=== PATIENT | female | born 1975 | race Caucasian/White ===

== ENCOUNTER 2019-05-16 14:30 | Outpatient (RCR) | payer OTHER, SELFPAY ==
--- NOTE | 2019-03-21 12:51 | PT.OIE ---
Current Diagnoses Pain in right hip (03/21/19) Pain in right knee (03/21/19) Visit Care Team Role Provider Type Kerri De Los Santos MD Primary Care Provider Non-Staff Specialty: Family Practice Address: [address] [place] [address], [id number] Email: Michelle Turner Attending Provider Non-Staff Specialty: Medical Address: [address] [place] [address], [address], [place], [phone] Fax: Email: Physical Therapy Initial Evaluation PT-OP-A Visit Information Start: 03/21/19 09:02 Freq: Status: Active Protocol: Document 03/21/19 09:03 MB (Rec: 03/21/19 09:24 MB [id number]) Out-Patient Physical Therapy Visit Information Visit Information Visit Type Initial Evaluation Visit Start Time 09:03 Visit Stop Time 09:43 Total Visit Minutes 40 Visit Number 06/18 Number of THREAD ROLLER Visits 0 PT-OP-B Current Condition Start: 03/21/19 09:02 Freq: Status: Active Protocol: Document 03/21/19 09:03 MB (Rec: 03/21/19 09:24 MB [id number]) Current Condition History of Current Condition Onset Date 09/24/18 History of Current Condition Wednesday before 09/24/18, pt tweeked left ankle, had many sxs before on it. She had to assist her mother after surgery, had increased stress. She had a fall on her right knee when her shoe slipped at [employer]. 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 Pt, mother and all work at [employer]. Mother lives with pt and pt . October 25, she went to [facility] doctor and got right knee MRI. L&I case pending. She was put on 4 hours of work. She saw orthopedist who recommended 4 weeks of PT. She had increased pain, returned to Dr. Patel ([facility] PCP) and was referred to Dr. Lira who is doing surgery on 04/27/19. Pt has been using cane in left hand, too low. When tried to adjust, no button to hold place. Ed pt to consider getting another cane. She has had swelling in her right knee when standing at work. Pt is driving with right foot. Prior Treatments and Tests X-ray showed some degenerative changes, patellofemoral changes MRI right knee 01/04/19: partial tear ACL, full- thickness chondral defect, mild to mod partial-thickness central and medial retropatellar chondromalacia and mild patellofemoral OA PT-OP-C Subjective Start: 03/21/19 09:02 Freq: Status: Active Protocol: Document 03/21/19 09:03 MB (Rec: 03/21/19 09:51 MB [id number]) OP-PT Subjective Patient Comments Patient Comments Pt states that she really wants US. She is in a lot of pain with her right knee, 12-14. She is not specific about what makes pain better or worse. PT-OP-G Mobility & Gait Start: 03/21/19 09:02 Freq: Status: Active Protocol: Document 03/21/19 09:03 MB (Rec: 03/21/19 12:44 MB [id number]) OP Gait Assessment Gait Gait Assistance Required: Independent Comments Gait Comments Pt uses SPC in left hand, it is too short and she presents with increased Trendelenburg gait. PT raises walker 1 and her gait is much improved. PT-OP-J Posture/Palpation/Skin Start: 03/21/19 09:02 Freq: Status: Active Protocol: Document 03/21/19 09:03 MB (Rec: 03/21/19 12:48 MB [id number]) Skin Assessment Edema Assessment R LE Comments R knee and distal LE edema, ed pt in use of compression, ice and elevation and gave size H tubagrip PT-OP-K Range of Motion Start: 03/21/19 09:02 Freq: Status: Active Protocol: Document 03/21/19 09:03 MB (Rec: 03/21/19 12:44 MB [id number]) Knee Goniometric Range of Motion Knee ROM Limitations Comments L knee functional; pt self- limits AROM right knee in supine with ROM 5-30 deg Ankle and Foot Goniometric Range of Motion Ankle and Foot ROM Limitations Comments Left ankle ROM limited in eversion after history of surgeries. Pt self-limits DF lacking 15 deg on the right d/ t right knee pain. She does not tolerate PF, eversion, inversion ROM on the right. Minimal toe wiggle PT-OP-M Strength Start: 03/21/19 09:02 Freq: Status: Active Protocol: Document 03/21/19 09:03 MB (Rec: 03/21/19 12:44 MB [id number]) Hip Strength Hip Manual Muscle Testing Right Comments Pt does not tolerate MMT RLE d /t right knee pain Left Flexion (L2) 5 Normal Abduction 2+ Poor+ Comments Supine Knee Strength Knee Manual Muscle Testing Right Comments Pt does not tolerate Left Flexion (S2) 4 Good Extension (L3) 5 Normal Comments Supine Ankle/Foot Strength Ankle and Foot Manual Muscle Testing Right Comments Pt does not tolerate MMT d/t right knee pain Left Dorsiflexion (L4) 5 Normal Plantarflexion (S1) 5 Normal Inversion 5 Normal Eversion (S1) 4 Good Comments Supine PT-OP-Q Treatments Start: 03/21/19 09:02 Freq: Status: Active Protocol: Document 03/21/19 09:03 MB (Rec: 03/21/19 12:12 MB [id number]) Manual Therapy Treatment Taping R knee support Type of Tape Kinesio Tape Comments KT c strip below patella and B I strips to support medial and lateral knee PT-OP-T Assessment and Plan Start: 03/21/19 09:02 Freq: Status: Active Protocol: Document 03/21/19 09:03 MB (Rec: 03/21/19 12:27 MB [id number]) Physical Therapy Assessment Rehab Potential Rehabilitation Potential Fair Evaluation Complexity Number of Personal Factors/Comorbidities 1-2 Number of Body Systems Impaired 1-2 Clinical Presentation at Evaluation Unstable Impairments Impairments Activity Tolerance,Balance, Edema,Functional Mobility,Gait ,Integument,Pain,Posture,ROM, Sensation,Soft Tissue Mobility ,Strength Other Impairments Pt has mechanical changes in right knee and to have surgery , PT pre-op will be limited. Other Concerns Barriers to Rehabilitation Pt has fear of pain, self- limits mobility and would like US, she might limit PT interventions pre-op. Goals 3 Impairment LE functional index score reflects 76% impairment Clinical Trial Head Goal (LTG) Pt will present with LE functional index score reflecting no more than 65% impairment by 05/06/19. LTG Duration 6 weeks 2 Impairment Weakness Intermediate Goal (LTG) Pt will perform gentle pre-op exercises to improve range, fascial and lymphatic mobility by 05/06/19. LTG Duration 6 weeks 1 Impairment Pain and edema right knee Clinical Trial Head Goal (LTG) Pt will report a 10% improvement in right knee pain and edema by 05/06/19. LTG Duration 6 weeks Assessment Summary Assessment Pt is a 43 y/o female presenting with right knee pain, edema, decreased strength, range and poor gait s/p knee injury several months ago. She states she is scheduled for arthroscopic surgery with Dr. Lira in April. She would like to try pre-op PT for US. PT will encourage pre-op education for knee care, range of motion, positioning and safe gait as well. Will monitor pt's receptiveness and response to PT. Physical Therapy Plan Frequency and Duration Frequency of Treatment 2x/Week Duration of Treatment 4 weeks Plan of Care Start Date 03/21/19 Plan of Care End Date 05/06/19 Therapeutic Interventions Therapeutic Interventions Aquatic Therapy,Balance Training,Gait Training,Home Exercise Program,Joint Mobilizations,Manual Therapy, Neuromuscular Re-education, Patient/Caregiver Education, Self-Care/Home Management, Sensory Integration,Soft Tissue Mobilization,Taping, Therapeutic Activities, Therapeutic Exercises Modalities Cold Pack/Ice Massage,Electric Stimulation,Hot Packs, Infrared Therapy,Ultrasound Next Visit Focus/Plan Next Note Type Treatment Note Next Visit Plan Initiate US, possible gentle supine pre-op exercises.
--- NOTE | 2019-03-23 09:47 | PT.OTN ---
Current Diagnoses Pain in right hip (03/23/19) Pain in right knee (03/23/19) Physical Therapy Treatment Note PT-OP-A Visit Information Start: 03/21/19 09:02 Freq: Status: Active Protocol: Document 03/23/19 09:05 MB (Rec: 03/23/19 09:47 MB [id number]) Out-Patient Physical Therapy Visit Information Visit Information Visit Type Treatment Note Visit Start Time 09:05 Visit Stop Time 09:45 Total Visit Minutes 40 Visit Number 07/19 Number of ARTIFICIAL FLOWERS SUPERVISOR Visits 0 PT-OP-B Current Condition Start: 03/21/19 09:02 Freq: Status: Active Protocol: Document 03/21/19 09:03 MB (Rec: 03/21/19 09:24 MB [id number]) Current Condition History of Current Condition Onset Date 09/24/18 History of Current Condition Wednesday before 09/24/18, pt tweeked left ankle, had many sxs before on it. She had to assist her mother after surgery, had increased stress. She had a fall on her right knee when her shoe slipped at [employer]. 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 Pt, mother and all work at [employer]. Mother lives with pt and pt . October 25, she went to [facility] and got right knee MRI. L&I case pending. She was put on 4 hours of work. She saw orthopedist who recommended 4 weeks of PT. She had increased pain, returned to Dr. Patel ([facility] PCP) and was referred to Dr. Lira who is doing surgery on 04/27/19. Pt has been using cane in left hand, too low. When tried to adjust, no button to hold place. Ed pt to consider getting another cane. She has had swelling in her right knee when standing at work. Pt is driving with right foot. Prior Treatments and Tests X-ray showed some degenerative changes, patellofemoral changes MRI right knee 01/04/19: partial tear ACL, full- thickness chondral defect, mild to mod partial-thickness central and medial retropatellar chondromalacia and mild patellofemoral OA PT-OP-C Subjective Start: 03/21/19 09:02 Freq: Status: Active Protocol: Document 03/23/19 09:05 MB (Rec: 03/23/19 09:47 MB [id number]) OP-PT Subjective Patient Comments Patient Comments Pt states that the taping of her right knee was terrible. It pulled on her knee. She took it off after the eval. Today, pt states that she has one kidney. She has to drink a lot. She has history of hysterectomy and gastric bypass. The detox bath was helpful. Patient Reported Progress Same PT-OP-G Mobility & Gait Start: 03/21/19 09:02 Freq: Status: Active Protocol: Document 03/21/19 09:03 MB (Rec: 03/21/19 12:44 MB [id number]) OP Gait Assessment Gait Gait Assistance Required: Independent Comments Gait Comments Pt uses SPC in left hand, it is too short and she presents with increased Trendelenburg gait. PT raises walker 1 and her gait is much improved. PT-OP-J Posture/Palpation/Skin Start: 03/21/19 09:02 Freq: Status: Active Protocol: Document 03/21/19 09:03 MB (Rec: 03/21/19 12:48 MB [id number]) Skin Assessment Edema Assessment R LE Comments R knee and distal LE edema, ed pt in use of compression, ice and elevation and gave size H tubagrip PT-OP-K Range of Motion Start: 03/21/19 09:02 Freq: Status: Active Protocol: Document 03/21/19 09:03 MB (Rec: 03/21/19 12:44 MB [id number]) Knee Goniometric Range of Motion Knee ROM Limitations Comments L knee functional; pt self- limits AROM right knee in supine with ROM 5-30 deg Ankle and Foot Goniometric Range of Motion Ankle and Foot ROM Limitations Comments Left ankle ROM limited in eversion after history of surgeries. Pt self-limits DF lacking 15 deg on the right d/ t right knee pain. She does not tolerate PF, eversion, inversion ROM on the right. Minimal toe wiggle PT-OP-M Strength Start: 03/21/19 09:02 Freq: Status: Active Protocol: Document 03/21/19 09:03 MB (Rec: 03/21/19 12:44 MB [id number]) Hip Strength Hip Manual Muscle Testing Right Comments Pt does not tolerate MMT RLE d /t right knee pain Left Flexion (L2) 5 Normal Abduction 2+ Poor+ Comments Supine Knee Strength Knee Manual Muscle Testing Right Comments Pt does not tolerate Left Flexion (S2) 4 Good Extension (L3) 5 Normal Comments Supine Ankle/Foot Strength Ankle and Foot Manual Muscle Testing Right Comments Pt does not tolerate MMT d/t right knee pain Left Dorsiflexion (L4) 5 Normal Plantarflexion (S1) 5 Normal Inversion 5 Normal Eversion (S1) 4 Good Comments Supine PT-OP-Q Treatments Start: 03/21/19 09:02 Freq: Status: Active Protocol: Document 03/23/19 09:05 MB (Rec: 03/23/19 09:47 MB [id number]) Therapeutic Exercises Supine Exercises APs Comments APs supine and sitting GS Comments GS holding several seconds, supine and sitting Manual Therapy Treatment Other Other Manual Treatments Pt agrees to Counterstrain to assess and treat fascial tension: treated stacks spinal veins thoracic, PLAN3 chain RLE PT-OP-T Assessment and Plan Start: 03/21/19 09:02 Freq: Status: Active Protocol: Document 03/23/19 09:05 MB (Rec: 03/23/19 09:47 MB [id number]) Physical Therapy Assessment Rehab Potential Rehabilitation Potential Fair Evaluation Complexity Number of Personal Factors/Comorbidities 1-2 Number of Body Systems Impaired 1-2 Clinical Presentation at Evaluation Unstable Impairments Impairments Activity Tolerance,Balance, Edema,Functional Mobility,Gait ,Integument,Pain,Posture,ROM, Sensation,Soft Tissue Mobility ,Strength Other Impairments Pt has mechanical changes in right knee and to have surgery , PT pre-op will be limited. Other Concerns Barriers to Rehabilitation Pt has fear of pain, self- limits mobility and would like US, she might limit PT interventions pre-op. Goals 3 Impairment LE functional index score reflects 76% impairment Hospital Medicine Director Goal (LTG) Pt will present with LE functional index score reflecting no more than 65% impairment by 05/06/19. LTG Duration 6 weeks 2 Impairment Weakness Hospital Medicine Director Goal (LTG) Pt will perform gentle pre-op exercises to improve range, fascial and lymphatic mobility by 05/06/19. LTG Duration 6 weeks 1 Impairment Pain and edema right knee Hospital Medicine Director Goal (LTG) Pt will report a 10% improvement in right knee pain and edema by 05/06/19. LTG Duration 6 weeks Assessment Summary Assessment Initiated Counterstrain and isometrics today. Consider US in future treatments.
--- NOTE | 2019-03-27 11:50 | PT.OTN ---
Current Diagnoses Pain in right hip (03/27/19) Pain in right knee (03/27/19) Physical Therapy Treatment Note PT-OP-A Visit Information Start: 03/21/19 09:02 Freq: Status: Active Protocol: Document 03/27/19 11:49 SP (Rec: 03/27/19 11:49 SP [id number]) Out-Patient Physical Therapy Visit Information Visit Information Visit Type Treatment Note Visit Start Time 09:05 Visit Stop Time 09:45 Total Visit Minutes 40 Visit Number 3/12 Number of COMPUTER HARDWARE ENGINEER Visits 1 PT-OP-B Current Condition Start: 03/21/19 09:02 Freq: Status: Active Protocol: Document 03/21/19 09:03 MB (Rec: 03/21/19 09:24 MB [id number]) Current Condition History of Current Condition Onset Date 09/24/18 History of Current Condition Wednesday before 09/24/18, pt tweeked left ankle, had many sxs before on it. She had to assist her mother after surgery, had increased stress. She had a fall on her right knee when her shoe slipped at [employer]. 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 Pt, mother and all work at [employer]. Mother lives with pt and pt . October 25, she went to [facility] doctor and got right knee MRI. L&I case pending. She was put on 4 hours of work. She saw orthopedist who recommended 4 weeks of PT. She had increased pain, returned to Dr. Patel ([facility] PCP) and was referred to Dr. Lira who is doing surgery on 04/27/19. Pt has been using cane in left hand, too low. When tried to adjust, no button to hold place. Ed pt to consider getting another cane. She has had swelling in her right knee when standing at work. Pt is driving with right foot. Prior Treatments and Tests X-ray showed some degenerative changes, patellofemoral changes MRI right knee 01/04/19: partial tear ACL, full- thickness chondral defect, mild to mod partial-thickness central and medial retropatellar chondromalacia and mild patellofemoral OA PT-OP-C Subjective Start: 03/21/19 09:02 Freq: Status: Active Protocol: Document 03/27/19 09:45 SP (Rec: 03/27/19 11:49 SP [id number]) OP-PT Subjective Patient Comments Patient Comments Pt stated was in alot of discomfort R knee after last visit, slept for 2 hours. Pre PT R knee pain 12/14 superior and medial R knee, would like to trial US today, helped for her ankles in the past and hoping could today as well. Has been doing her exercises this past weekend due to pain. Has been using her SPC more lately to help support ambulation. PT-OP-G Mobility & Gait Start: 03/21/19 09:02 Freq: Status: Active Protocol: Document 03/21/19 09:03 MB (Rec: 03/21/19 12:44 MB [id number]) OP Gait Assessment Gait Gait Assistance Required: Independent Comments Gait Comments Pt uses SPC in left hand, it is too short and she presents with increased Trendelenburg gait. PT raises walker 1 and her gait is much improved. PT-OP-J Posture/Palpation/Skin Start: 03/21/19 09:02 Freq: Status: Active Protocol: Document 03/21/19 09:03 MB (Rec: 03/21/19 12:48 MB [id number]) Skin Assessment Edema Assessment R LE Comments R knee and distal LE edema, ed pt in use of compression, ice and elevation and gave size H tubagrip PT-OP-K Range of Motion Start: 03/21/19 09:02 Freq: Status: Active Protocol: Document 03/21/19 09:03 MB (Rec: 03/21/19 12:44 MB [id number]) Knee Goniometric Range of Motion Knee ROM Limitations Comments L knee functional; pt self- limits AROM right knee in supine with ROM 5-30 deg Ankle and Foot Goniometric Range of Motion Ankle and Foot ROM Limitations Comments Left ankle ROM limited in eversion after history of surgeries. Pt self-limits DF lacking 15 deg on the right d/ t right knee pain. She does not tolerate PF, eversion, inversion ROM on the right. Minimal toe wiggle PT-OP-M Strength Start: 03/21/19 09:02 Freq: Status: Active Protocol: Document 03/21/19 09:03 MB (Rec: 03/21/19 12:44 MB [id number]) Hip Strength Hip Manual Muscle Testing Right Comments Pt does not tolerate MMT RLE d /t right knee pain Left Flexion (L2) 5 Normal Abduction 2+ Poor+ Comments Supine Knee Strength Knee Manual Muscle Testing Right Comments Pt does not tolerate Left Flexion (S2) 4 Good Extension (L3) 5 Normal Comments Supine Ankle/Foot Strength Ankle and Foot Manual Muscle Testing Right Comments Pt does not tolerate MMT d/t right knee pain Left Dorsiflexion (L4) 5 Normal Plantarflexion (S1) 5 Normal Inversion 5 Normal Eversion (S1) 4 Good Comments Supine PT-OP-Q Treatments Start: 03/21/19 09:02 Freq: Status: Active Protocol: Document 03/27/19 09:45 SP (Rec: 03/27/19 11:49 SP [id number]) Therapeutic Exercises Supine Exercises heel slides Side right Resistance AROM Reps/Minutes 5 reps, 3 reps Comments to tolerable range, demonstrated approx 80-90* ankle pumps Side right Reps/Minutes 3x10 GS Supine Exercise Name Glut, quad sets 10 sec hold x10 Side right Sitting Exercises heel/ toe raises Reps/Minutes 3x10 PT-OP-R Modalities Start: 03/21/19 09:02 Freq: Status: Active Protocol: Document 03/27/19 09:45 SP (Rec: 03/27/19 11:49 SP [id number]) Ultrasound Therapy Treatment R knee Treatment Duration (minutes) 8 Patient Position Supine Coupling Medium Ultrasound Gel Frequency Setting (mHz) 1 Mode Setting Continuous Duty Cycle 50% Intensity Setting (w/cm2) 1.6 PT-OP-T Assessment and Plan Start: 03/21/19 09:02 Freq: Status: Active Protocol: Document 03/27/19 09:45 SP (Rec: 03/27/19 11:49 SP [email or web address]) Physical Therapy Assessment Assessment Summary Assessment Pt tolerated tx well, no adverse affects. Good response of decreased knee pain to 5/ 10 post US and no increase during review of HEP and added heel slides and seated HRTR today. Pt education on importance of HEP outside of tx if tolerated to progress in ROM and strength. Physical Therapy Plan Frequency and Duration Frequency of Treatment 2x/Week Duration of Treatment 4 weeks Plan of Care Start Date 03/21/19 Plan of Care End Date 05/06/19 Therapeutic Interventions Therapeutic Interventions Aquatic Therapy,Balance Training,Gait Training,Home Exercise Program,Joint Mobilizations,Manual Therapy, Neuromuscular Re-education, Patient/Caregiver Education, Self-Care/Home Management, Sensory Integration,Soft Tissue Mobilization,Taping, Therapeutic Activities, Therapeutic Exercises Modalities Cold Pack/Ice Massage,Electric Stimulation,Hot Packs, Infrared Therapy,Ultrasound Next Visit Focus/Plan Next Note Type Treatment Note Next Visit Plan possible gentle supine pre-op exercises.
--- NOTE | 2019-03-29 09:09 | PT-OP ANOTE ---
Pt cancelled appt just prior to appt time, her leg gave out causing her to fall as was getting out of bed this morning.
--- NOTE | 2019-04-04 10:36 | PT.OTN ---
Current Diagnoses Pain in right hip (04/04/19) Pain in right knee (04/04/19) Physical Therapy Treatment Note PT-OP-A Visit Information Start: 03/21/19 09:02 Freq: Status: Active Protocol: Document 04/04/19 09:51 SP (Rec: 04/04/19 11:59 SP [email or web address]) Out-Patient Physical Therapy Visit Information Visit Information Visit Type Treatment Note Visit Start Time 09:51 Visit Stop Time 10:36 Total Visit Minutes 45 Visit Number 09/16 Number of ASPHALT TILE FLOOR LAYER Visits 2 PT-OP-B Current Condition Start: 03/21/19 09:02 Freq: Status: Active Protocol: Document 03/21/19 09:03 MB (Rec: 03/21/19 09:24 MB [id number]) Current Condition History of Current Condition Onset Date 09/24/18 History of Current Condition Wednesday before 09/24/18, pt tweeked left ankle, had many sxs before on it. She had to assist her mother after surgery, had increased stress. She had a fall on her right knee when her shoe slipped at [employer]. 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 Pt, mother and all work at [employer]. Mother lives with pt and pt . October 25, she went to [facility] doctor and got right knee MRI. L&I case pending. She was put on 4 hours of work. She saw orthopedist who recommended 4 weeks of PT. She had increased pain, returned to Dr. Patel ([facility] PCP) and was referred to Dr. Lira who is doing surgery on 04/27/19. Pt has been using cane in left hand, too low. When tried to adjust, no button to hold place. Ed pt to consider getting another cane. She has had swelling in her right knee when standing at work. Pt is driving with right foot. Prior Treatments and Tests X-ray showed some degenerative changes, patellofemoral changes MRI right knee 01/04/19: partial tear ACL, full- thickness chondral defect, mild to mod partial-thickness central and medial retropatellar chondromalacia and mild patellofemoral OA PT-OP-C Subjective Start: 03/21/19 09:02 Freq: Status: Active Protocol: Document 04/04/19 10:36 SP (Rec: 04/04/19 12:02 SP [email or web address]) OP-PT Subjective Patient Comments Patient Comments Pt stated couldn't make it to her last appt, R knee/ LE was numb when getting out of bed and when went to WB, she fell out of bed. This had been the 2nd time her knee/leg has been numb and unable to stand on. Has been resting it since. Her R knee pain is 6-7/10 pre PT. Has been trying to perform exercises as tolerated. Patient Reported Progress Same PT-OP-G Mobility & Gait Start: 03/21/19 09:02 Freq: Status: Active Protocol: Document 03/21/19 09:03 MB (Rec: 03/21/19 12:44 MB [id number]) OP Gait Assessment Gait Gait Assistance Required: Independent Comments Gait Comments Pt uses SPC in left hand, it is too short and she presents with increased Trendelenburg gait. PT raises walker 1 and her gait is much improved. PT-OP-J Posture/Palpation/Skin Start: 03/21/19 09:02 Freq: Status: Active Protocol: Document 03/21/19 09:03 MB (Rec: 03/21/19 12:48 MB [id number]) Skin Assessment Edema Assessment R LE Comments R knee and distal LE edema, ed pt in use of compression, ice and elevation and gave size H tubagrip PT-OP-K Range of Motion Start: 03/21/19 09:02 Freq: Status: Active Protocol: Document 03/21/19 09:03 MB (Rec: 03/21/19 12:44 MB [id number]) Knee Goniometric Range of Motion Knee ROM Limitations Comments L knee functional; pt self- limits AROM right knee in supine with ROM 5-30 deg Ankle and Foot Goniometric Range of Motion Ankle and Foot ROM Limitations Comments Left ankle ROM limited in eversion after history of surgeries. Pt self-limits DF lacking 15 deg on the right d/ t right knee pain. She does not tolerate PF, eversion, inversion ROM on the right. Minimal toe wiggle PT-OP-M Strength Start: 03/21/19 09:02 Freq: Status: Active Protocol: Document 03/21/19 09:03 MB (Rec: 03/21/19 12:44 MB [id number]) Hip Strength Hip Manual Muscle Testing Right Comments Pt does not tolerate MMT RLE d /t right knee pain Left Flexion (L2) 5 Normal Abduction 2+ Poor+ Comments Supine Knee Strength Knee Manual Muscle Testing Right Comments Pt does not tolerate Left Flexion (S2) 4 Good Extension (L3) 5 Normal Comments Supine Ankle/Foot Strength Ankle and Foot Manual Muscle Testing Right Comments Pt does not tolerate MMT d/t right knee pain Left Dorsiflexion (L4) 5 Normal Plantarflexion (S1) 5 Normal Inversion 5 Normal Eversion (S1) 4 Good Comments Supine PT-OP-Q Treatments Start: 03/21/19 09:02 Freq: Status: Active Protocol: Document 04/04/19 09:51 SP (Rec: 04/04/19 11:59 SP [email or web address]) Therapeutic Exercises Supine Exercises straight leg raise Side right Reps/Minutes 3x5 Comments quad contraction but not letting into R knee hyperextension. hip abd Supine Exercise Name ABD/ADD Side right Resistance AROM Reps/Minutes 3x5 Comments slow heel slides Side right Resistance AROM Reps/Minutes 3x5 reps Comments to tolerable range, demonstrated approx 80-90* ankle pumps Side right Reps/Minutes 3x10 GS Supine Exercise Name Glut, quad sets 10 sec hold x10 Side right PT-OP-R Modalities Start: 03/21/19 09:02 Freq: Status: Active Protocol: Document 04/04/19 09:51 SP (Rec: 04/04/19 11:59 SP [email or web address]) Ultrasound Therapy Treatment R knee Treatment Duration (minutes) 8 Patient Position Supine Coupling Medium Ultrasound Gel Frequency Setting (mHz) 1 Mode Setting Continuous Duty Cycle 50% Intensity Setting (w/cm2) 1.6 Comments inferior/lateral patella of R knee PT-OP-T Assessment and Plan Start: 03/21/19 09:02 Freq: Status: Active Protocol: Document 04/04/19 09:51 SP (Rec: 04/04/19 11:59 SP [email or web address]) Physical Therapy Assessment Assessment Summary Assessment Pt tolerated supine exercises with no adverse reactions to added SLR, hip abd to assist for movement in/out bed but did not tolerate bridging so discontinue for now, cued for slow controlled movement and not allowing R knee to hyperextend. Trialed SLS on R which caused increased pain WB with support so stopped. Will continue with post op HEP and good response to US end of tx 4-5/10 R knee pain. Physical Therapy Plan Frequency and Duration Frequency of Treatment 2x/Week Duration of Treatment 4 weeks Plan of Care Start Date 03/21/19 Plan of Care End Date 05/06/19 Therapeutic Interventions Therapeutic Interventions Aquatic Therapy,Balance Training,Gait Training,Home Exercise Program,Joint Mobilizations,Manual Therapy, Neuromuscular Re-education, Patient/Caregiver Education, Self-Care/Home Management, Sensory Integration,Soft Tissue Mobilization,Taping, Therapeutic Activities, Therapeutic Exercises Modalities Cold Pack/Ice Massage,Electric Stimulation,Hot Packs, Infrared Therapy,Ultrasound Next Visit Focus/Plan Next Note Type Treatment Note Next Visit Plan possible gentle supine pre-op exercises. assess stair mgt, 2 -3 stairs enter front door with no rails prep post op.
--- NOTE | 2019-04-10 09:46 | PT.OTN ---
Current Diagnoses Pain in right hip (04/10/19) Pain in right knee (04/10/19) Physical Therapy Treatment Note PT-OP-A Visit Information Start: 03/21/19 09:02 Freq: Status: Active Protocol: Document 04/10/19 09:01 SP (Rec: 04/10/19 09:50 SP [id number]) Out-Patient Physical Therapy Visit Information Visit Information Visit Type Treatment Note Visit Start Time 09:01 Visit Stop Time 09:46 Total Visit Minutes 45 Visit Number 5/12 Number of HEAV[employer] EQUIPMENT SERVICE MANAGER Visits 3 PT-OP-B Current Condition Start: 03/21/19 09:02 Freq: Status: Active Protocol: Document 03/21/19 09:03 MB (Rec: 03/21/19 09:24 MB [id number]) Current Condition History of Current Condition Onset Date 09/24/18 History of Current Condition Wednesday before 09/24/18, pt tweeked left ankle, had many sxs before on it. She had to assist her mother after surgery, had increased stress. She had a fall on her right knee when her shoe slipped at [employer]. 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 Pt, mother and all work at [employer]. Mother lives with pt and pt . October 25, she went to [facility] doctor and got right knee MRI. L&I case pending. She was put on 4 hours of work. She saw orthopedist who recommended 4 weeks of PT. She had increased pain, returned to Dr. Patel ([facility] PCP) and was referred to Dr. Lira who is doing surgery on 04/27/19. Pt has been using cane in left hand, too low. When tried to adjust, no button to hold place. Ed pt to consider getting another cane. She has had swelling in her right knee when standing at work. Pt is driving with right foot. Prior Treatments and Tests X-ray showed some degenerative changes, patellofemoral changes MRI right knee 01/04/19: partial tear ACL, full- thickness chondral defect, mild to mod partial-thickness central and medial retropatellar chondromalacia and mild patellofemoral OA PT-OP-C Subjective Start: 03/21/19 09:02 Freq: Status: Active Protocol: Document 04/10/19 09:01 SP (Rec: 04/10/19 09:50 SP [id number]) OP-PT Subjective Patient Comments Patient Comments Pt stated 6-12/14 R knee pain pre PT, was able to walk without cane last fri short distances, R knee has been popping alot more lately. Pt stated has been taking flexerol to help sleep at night for her back. Pt stated has her surgery scheduled and wants to be sure her FWW and crutch height is appropriate before then, has shower chair as well. Pt stated she might get a ramp installed to assist with getting in the house so doesn' t have to worry about the stairs, unsure yet. She will take a pic before next tx for a visual of what home stair set up is to practice in PT. Patient Reported Progress Same PT-OP-G Mobility & Gait Start: 03/21/19 09:02 Freq: Status: Active Protocol: Document 03/21/19 09:03 MB (Rec: 03/21/19 12:44 MB [id number]) OP Gait Assessment Gait Gait Assistance Required: Independent Comments Gait Comments Pt uses SPC in left hand, it is too short and she presents with increased Trendelenburg gait. PT raises walker 1 and her gait is much improved. PT-OP-J Posture/Palpation/Skin Start: 03/21/19 09:02 Freq: Status: Active Protocol: Document 03/21/19 09:03 MB (Rec: 03/21/19 12:48 MB [id number]) Skin Assessment Edema Assessment R LE Comments R knee and distal LE edema, ed pt in use of compression, ice and elevation and gave size H tubagrip PT-OP-K Range of Motion Start: 03/21/19 09:02 Freq: Status: Active Protocol: Document 03/21/19 09:03 MB (Rec: 03/21/19 12:44 MB [id number]) Knee Goniometric Range of Motion Knee ROM Limitations Comments L knee functional; pt self- limits AROM right knee in supine with ROM 5-30 deg Ankle and Foot Goniometric Range of Motion Ankle and Foot ROM Limitations Comments Left ankle ROM limited in eversion after history of surgeries. Pt self-limits DF lacking 15 deg on the right d/ t right knee pain. She does not tolerate PF, eversion, inversion ROM on the right. Minimal toe wiggle PT-OP-M Strength Start: 03/21/19 09:02 Freq: Status: Active Protocol: Document 03/21/19 09:03 MB (Rec: 03/21/19 12:44 MB [id number]) Hip Strength Hip Manual Muscle Testing Right Comments Pt does not tolerate MMT RLE d /t right knee pain Left Flexion (L2) 5 Normal Abduction 2+ Poor+ Comments Supine Knee Strength Knee Manual Muscle Testing Right Comments Pt does not tolerate Left Flexion (S2) 4 Good Extension (L3) 5 Normal Comments Supine Ankle/Foot Strength Ankle and Foot Manual Muscle Testing Right Comments Pt does not tolerate MMT d/t right knee pain Left Dorsiflexion (L4) 5 Normal Plantarflexion (S1) 5 Normal Inversion 5 Normal Eversion (S1) 4 Good Comments Supine PT-OP-Q Treatments Start: 03/21/19 09:02 Freq: Status: Active Protocol: Document 04/10/19 09:01 SP (Rec: 04/10/19 09:50 SP [id number]) Therapeutic Exercises Supine Exercises straight leg raise Side right Reps/Minutes 3x8 Comments quad contraction but not letting into R knee hyperextension. hip abd Side right Resistance AROM Reps/Minutes 3x8 Comments slow heel slides Side right Resistance AROM Reps/Minutes 3x8 reps Comments to tolerable range, demonstrated approx 80-90* GS Supine Exercise Name Glut, quad sets 10 sec hold x10 Side right Reps/Minutes 10 x10 each Standing Exercises Heel raises Side bilateral Resistance AROM Reps/Minutes 2x5 Comments slow controlled hip abd Side right Resistance AROM Reps/Minutes 2x5 Comments contact with table PT-OP-R Modalities Start: 03/21/19 09:02 Freq: Status: Active Protocol: Document 04/10/19 09:01 SP (Rec: 04/10/19 09:50 SP [id number]) Ultrasound Therapy Treatment R knee Treatment Duration (minutes) 8 Patient Position Supine Coupling Medium Ultrasound Gel Frequency Setting (mHz) 1 Mode Setting Continuous Duty Cycle 50% Intensity Setting (w/cm2) 1.6 Comments inferior/lateral patella of R knee PT-OP-T Assessment and Plan Start: 03/21/19 09:02 Freq: Status: Active Protocol: Document 04/10/19 09:01 SP (Rec: 04/10/19 09:50 SP [id number]) Physical Therapy Assessment Assessment Summary Assessment Tx focused on HEP review and tolerated increased reps of 8 and added standing RLE AROM exercises with contact support at counter with no report of increased pain. Pt requested continued use of US for assistance with pain control with reported positive affects of reduction in pain 5/10 by end of tx. Educated patient to continue HEP on her own, did not want copies of standing ex today. Physical Therapy Plan Frequency and Duration Frequency of Treatment 2x/Week Duration of Treatment 4 weeks Plan of Care Start Date 03/21/19 Plan of Care End Date 05/06/19 Therapeutic Interventions Therapeutic Interventions Aquatic Therapy,Balance Training,Gait Training,Home Exercise Program,Joint Mobilizations,Manual Therapy, Neuromuscular Re-education, Patient/Caregiver Education, Self-Care/Home Management, Sensory Integration,Soft Tissue Mobilization,Taping, Therapeutic Activities, Therapeutic Exercises Modalities Cold Pack/Ice Massage,Electric Stimulation,Hot Packs, Infrared Therapy,Ultrasound Next Visit Focus/Plan Next Note Type Treatment Note Next Visit Plan Reviewed pre OP HEP with increased reps to 8 today, added standing hip abd/HRTR with good tolerance review next tx, Next tx assess FWW and crutch height then assess stair mgt to prep for post op (surgery is scheduled 04/28/19 ), 2-3 stairs enter front door with no rails prep post op.
--- NOTE | 2019-04-12 09:40 | PT.OTN ---
Current Diagnoses Pain in right hip (04/12/19) Pain in right knee (04/12/19) Physical Therapy Treatment Note PT-OP-A Visit Information Start: 03/21/19 09:02 Freq: Status: Active Protocol: Document 04/12/19 09:40 SP (Rec: 04/12/19 12:35 SP [email or web address]) Out-Patient Physical Therapy Visit Information Visit Information Visit Type Treatment Note Visit Start Time 09:03 Visit Stop Time 09:40 Total Visit Minutes 37 Visit Number 6 Number of METAL GRINDER Visits 4 PT-OP-B Current Condition Start: 03/21/19 09:02 Freq: Status: Active Protocol: Document 03/21/19 09:03 MB (Rec: 03/21/19 09:24 MB [id number]) Current Condition History of Current Condition Onset Date 09/24/18 History of Current Condition Wednesday before 09/24/18, pt tweeked left ankle, had many sxs before on it. She had to assist her mother after surgery, had increased stress. She had a fall on her right knee when her shoe slipped at [employer]. 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 Pt, mother and all work at [employer]. Mother lives with pt and pt . October 25, she went to [facility] doctor and got right knee MRI. L&I case pending. She was put on 4 hours of work. She saw orthopedist who recommended 4 weeks of PT. She had increased pain, returned to Dr. Patel ([facility] PCP) and was referred to Dr. Lira who is doing surgery on 04/27/19. Pt has been using cane in left hand, too low. When tried to adjust, no button to hold place. Ed pt to consider getting another cane. She has had swelling in her right knee when standing at work. Pt is driving with right foot. Prior Treatments and Tests X-ray showed some degenerative changes, patellofemoral changes MRI right knee 01/04/19: partial tear ACL, full- thickness chondral defect, mild to mod partial-thickness central and medial retropatellar chondromalacia and mild patellofemoral OA PT-OP-C Subjective Start: 03/21/19 09:02 Freq: Status: Active Protocol: Document 04/12/19 09:40 SP (Rec: 04/12/19 12:35 SP [email or web address]) OP-PT Subjective Patient Comments Patient Comments Pt stated is in alot of inferior and lateral R patella knee pain today 03/16, doesn' t want to do much today. Want to check the proper height of her crutches and standard walker for use post-op safety use and try US to assist decrease R knee pain only. PT-OP-G Mobility & Gait Start: 03/21/19 09:02 Freq: Status: Active Protocol: Document 03/21/19 09:03 MB (Rec: 03/21/19 12:44 MB [id number]) OP Gait Assessment Gait Gait Assistance Required: Independent Comments Gait Comments Pt uses SPC in left hand, it is too short and she presents with increased Trendelenburg gait. PT raises walker 1 and her gait is much improved. PT-OP-J Posture/Palpation/Skin Start: 03/21/19 09:02 Freq: Status: Active Protocol: Document 03/21/19 09:03 MB (Rec: 03/21/19 12:48 MB [id number]) Skin Assessment Edema Assessment R LE Comments R knee and distal LE edema, ed pt in use of compression, ice and elevation and gave size H tubagrip PT-OP-K Range of Motion Start: 03/21/19 09:02 Freq: Status: Active Protocol: Document 04/12/19 09:40 SP (Rec: 04/12/19 12:35 SP [email or web address]) Knee Goniometric Range of Motion Knee R knee Knee ROM WFL No Patient Position Supine Flexion Active (degrees) 102 Flexion Passive (degrees) 112 Extension Active (degrees) 0 PT-OP-M Strength Start: 03/21/19 09:02 Freq: Status: Active Protocol: Document 03/21/19 09:03 MB (Rec: 03/21/19 12:44 MB [id number]) Hip Strength Hip Manual Muscle Testing Right Comments Pt does not tolerate MMT RLE d /t right knee pain Left Flexion (L2) 5 Normal Abduction 2+ Poor+ Comments Supine Knee Strength Knee Manual Muscle Testing Right Comments Pt does not tolerate Left Flexion (S2) 4 Good Extension (L3) 5 Normal Comments Supine Ankle/Foot Strength Ankle and Foot Manual Muscle Testing Right Comments Pt does not tolerate MMT d/t right knee pain Left Dorsiflexion (L4) 5 Normal Plantarflexion (S1) 5 Normal Inversion 5 Normal Eversion (S1) 4 Good Comments Supine PT-OP-Q Treatments Start: 03/21/19 09:02 Freq: Status: Active Protocol: Document 04/12/19 09:40 SP (Rec: 04/12/19 12:35 SP [email or web address]) Therapeutic Exercises Supine Exercises straight leg raise Side right Reps/Minutes 2x5 Comments quad contraction but not letting into R knee hyperextension. hip abd Side right Resistance AROM Reps/Minutes 3x5 Comments slow Gait Training Gait Activity standard walker, crutch use Description forward using both, NWB RLE Device Used B crutches, standard walker Level of Assistance I Surface level Distance/Duration 10 ft x2 each device Treatment Focus Prepare device use demonstrating NWB post surgery . Comments Adjusted personal standard walker and crutches for appropriate height fit to prepare for post op use ( surgery end of Nov). Recommended can add wheels to front of walker for increased mobility, cued current for 4 point contact transition before WB UE. Pt believes will be NWB post surgery and wanted to trial demo today, assess 2 stairs with no HR in future appt to assimulate entering home but might install ramp, unsure at this time. PT-OP-R Modalities Start: 03/21/19 09:02 Freq: Status: Active Protocol: Document 04/12/19 09:40 SP (Rec: 04/12/19 12:35 SP [email or web address]) Ultrasound Therapy Treatment R knee Treatment Duration (minutes) 10 Patient Position Supine Coupling Medium Ultrasound Gel Frequency Setting (mHz) 1 Mode Setting Continuous Duty Cycle 50% Intensity Setting (w/cm2) 1.6 Comments inferior/lateral patella of R knee PT-OP-T Assessment and Plan Start: 03/21/19 09:02 Freq: Status: Active Protocol: Document 04/12/19 09:40 SP (Rec: 04/12/19 12:35 SP [email or web address]) Physical Therapy Assessment Goals 3 Impairment LE functional index score reflects 76% impairment Shelter Goal (LTG) Pt will present with LE functional index score reflecting no more than 65% impairment by 05/06/19. LTG Duration 6 weeks 2 Impairment Weakness Loss Control Representative Goal (LTG) Pt will perform gentle pre-op exercises to improve range, fascial and lymphatic mobility by 05/06/19. LTG Duration 6 weeks 1 Impairment Pain and edema right knee Shelter Goal (LTG) Pt will report a 10% improvement in right knee pain and edema by 05/06/19. LTG Duration 6 weeks Assessment Summary Assessment Tx focused on pain control, only tolerated knee extension exercises today. Pt looked and felt more confident using standard walker AD during trail NWB of RLE prep surgery. Suggested could add front wheels if felt comfortable for foward glide mobility vs. lifting walker while maintaining RLE elevated. Little unsteady using crutches , cued for narrower CHELO and shorter LLE hops 2 point gait for safety with balance forward locomotion. Pt has 2 stairs to enter home with no HRs and will have to be able to complete upon discharge post surgery. Pt stated my install ramp, unsure at this time. Pt responded well to tx today decrease in pain 5/10 R knee pain post US, no increase in pain during knee extension ex's. Pt made gains in AROM measurements. Physical Therapy Plan Frequency and Duration Frequency of Treatment 2x/Week Duration of Treatment 4 weeks Plan of Care Start Date 03/21/19 Plan of Care End Date 05/06/19 Therapeutic Interventions Therapeutic Interventions Aquatic Therapy,Balance Training,Gait Training,Home Exercise Program,Joint Mobilizations,Manual Therapy, Neuromuscular Re-education, Patient/Caregiver Education, Self-Care/Home Management, Sensory Integration,Soft Tissue Mobilization,Taping, Therapeutic Activities, Therapeutic Exercises Modalities Cold Pack/Ice Massage,Electric Stimulation,Hot Packs, Infrared Therapy,Ultrasound Next Visit Focus/Plan Next Note Type Treatment Note Next Visit Plan Review post op and added AROM standing exercises, progress if tolerated. Assess stair mgt with no HR to assimulate home before surgery, pt unsure if installing ramp.
--- NOTE | 2019-04-21 10:34 | PT.OTN ---
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 She had to assist her mother after surgery, had increased stress. She had a fall on her right knee when her shoe slipped at [employer]. 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 Pt, mother and all work at [employer]. Mother lives with pt and pt . October 25, she went to [facility] doctor and got right knee MRI. L&I case pending. She was put on 4 hours of work. She saw orthopedist who recommended 4 weeks of PT. She had increased pain, returned to Dr. Patel ([facility] PCP) and was referred to Dr. Lira who is doing surgery on 04/27/19. Pt has been using cane in left hand, too low. When tried to adjust, no button to hold place. Ed pt to consider getting another cane. She has had swelling in her right knee when standing at work. Pt is driving with right foot. Prior Treatments and Tests X-ray showed some degenerative changes, patellofemoral changes MRI right knee 01/04/19: partial tear ACL, full- thickness chondral defect, mild to mod partial-thickness central and medial retropatellar chondromalacia and mild patellofemoral OA PT-OP-C Subjective Start: 03/21/19 09:02 Freq: Status: Active Protocol: Document 04/21/19 09:46 MB (Rec: 04/21/19 10:24 MB [id number]) OP-PT Subjective Patient Comments Patient Comments Pt's daughter has bronchitis and pt wears face mask. She has right knee surgery next week. PT-OP-G Mobility & Gait Start: 03/21/19 09:02 Freq: Status: Active Protocol: Document 03/21/19 09:03 MB (Rec: 03/21/19 12:44 MB [id number]) OP Gait Assessment Gait Gait Assistance Required: Independent Comments Gait Comments Pt uses SPC in left hand, it is too short and she presents with increased Trendelenburg gait. PT raises walker 1 and her gait is much improved. PT-OP-J Posture/Palpation/Skin Start: 03/21/19 09:02 Freq: Status: Active Protocol: Document 03/21/19 09:03 MB (Rec: 03/21/19 12:48 MB [id number]) Skin Assessment Edema Assessment R LE Comments R knee and distal LE edema, ed pt in use of compression, ice and elevation and gave size H tubagrip PT-OP-K Range of Motion Start: 03/21/19 09:02 Freq: Status: Active Protocol: Document 04/12/19 09:40 SP (Rec: 04/12/19 12:35 SP [id number]) Knee Goniometric Range of Motion Knee R knee Knee ROM WFL No Patient Position Supine Flexion Active (degrees) 102 Flexion Passive (degrees) 112 Extension Active (degrees) 0 PT-OP-M Strength Start: 03/21/19 09:02 Freq: Status: Active Protocol: Document 03/21/19 09:03 MB (Rec: 03/21/19 12:44 MB [id number]) Hip Strength Hip Manual Muscle Testing Right Comments Pt does not tolerate MMT RLE d /t right knee pain Left Flexion (L2) 5 Normal Abduction 2+ Poor+ Comments Supine Knee Strength Knee Manual Muscle Testing Right Comments Pt does not tolerate Left Flexion (S2) 4 Good Extension (L3) 5 Normal Comments Supine Ankle/Foot Strength Ankle and Foot Manual Muscle Testing Right Comments Pt does not tolerate MMT d/t right knee pain Left Dorsiflexion (L4) 5 Normal Plantarflexion (S1) 5 Normal Inversion 5 Normal Eversion (S1) 4 Good Comments Supine PT-OP-Q Treatments Start: 03/21/19 09:02 Freq: Status: Active Protocol: Document 04/21/19 09:46 MB (Rec: 04/21/19 10:33 MB [id number]) Manual Therapy Treatment Manual Techniques STM right gastroc head Comments STM proximal right gastroc Self-Care/Home Management Treatment Education Other Education RICE, APs, use of rolling walker for gait post-op, plan for post-op PT PT-OP-R Modalities Start: 03/21/19 09:02 Freq: Status: Active Protocol: Document 04/21/19 09:46 MB (Rec: 04/21/19 09:56 MB [id number]) Ultrasound Therapy Treatment R knee Treatment Duration (minutes) 10 Patient Position Supine Coupling Medium Ultrasound Gel Frequency Setting (mHz) 1 Mode Setting Continuous Duty Cycle 50% Intensity Setting (w/cm2) 1.6 Comments inferior/lateral patella of R knee PT-OP-T Assessment and Plan Start: 03/21/19 09:02 Freq: Status: Active Protocol: Document 04/21/19 09:46 MB (Rec: 04/21/19 10:24 MB [id number]) Physical Therapy Assessment Goals 3 Impairment LE functional index score reflects 76% impairment Teacher Goal (LTG) Pt will present with LE functional index score reflecting no more than 65% impairment by 05/06/19. LTG Duration 6 weeks 2 Impairment Weakness Teacher Goal (LTG) Pt will perform gentle pre-op exercises to improve range, fascial and lymphatic mobility by 05/06/19. LTG Duration 6 weeks 1 Impairment Pain and edema right knee Shelter Goal (LTG) Pt will report a 10% improvement in right knee pain and edema by 05/06/19. LTG Duration 6 weeks Assessment Summary Assessment Pt's last appointment before surgery, con't PT 2x/wk post- op when MD clears pt. Physical Therapy Plan Therapeutic Interventions Therapeutic Interventions Aquatic Therapy,Balance Training,Gait Training,Home Exercise Program,Joint Mobilizations,Manual Therapy, Neuromuscular Re-education, Patient/Caregiver Education, Self-Care/Home Management, Sensory Integration,Soft Tissue Mobilization,Taping, Therapeutic Activities, Therapeutic Exercises Modalities Cold Pack/Ice Massage,Electric Stimulation,Hot Packs, Infrared Therapy,Ultrasound Hold Physical Therapy Reason For Hold Pt to have surgery next week, hold until post-op. Next Visit Focus/Plan Next Note Type Re-Evaluation
--- NOTE | 2019-05-16 16:16 | PT.OTRE ---
Current Diagnoses Pain in right hip (05/16/19) Pain in right knee (05/16/19) Visit Care Team Role Provider Type Kerri De Los Santos MD Primary Care Provider Non-Staff Specialty: Family Practice Address: [address] [place] [address], [id number] Email: Michelle Turner Attending Provider Non-Staff Specialty: Medical Address: [address] [place] [address], [address], [place], [phone] Fax: Email: Physical Therapy Re-Evaluation PT-OP-A Visit Information Start: 03/21/19 09:02 Freq: Status: Active Protocol: Document 05/16/19 14:31 MB (Rec: 05/16/19 15:29 MB [id number]) Out-Patient Physical Therapy Visit Information Visit Information Visit Type Re-Evaluation Visit Note Post-op Visit Start Time 14:31 Visit Stop Time 15:11 Total Visit Minutes 40 Visit Number 01/16 PT-OP-B Current Condition Start: 03/21/19 09:02 Freq: Status: Active Protocol: Document 05/16/19 14:31 MB (Rec: 05/16/19 16:16 MB [id number]) Current Condition History of Current Condition Onset Date 04/28/19 History of Current Condition Pt post-op right knee arthroscopy 04/28/19 PT-OP-C Subjective Start: 03/21/19 09:02 Freq: Status: Active Protocol: Document 05/16/19 14:31 MB (Rec: 05/16/19 16:16 MB [id number]) OP-PT Subjective Patient Comments Patient Comments Pt arrives post-op right knee arthroscopy 04/28/19. Per op note, pt was found to have ACL intact, chondromalacia and loose cartilage flaps on the medial condyle which were debrided, full-thickness cartilage loss at the superior pole of the patella and synovitis in the patellofemoral joint which was resected with the shaver. Pt with order for WBAT. On re-eval date today, pt reports concern that PA at post-op appointment on 05/11/19 told her that she needs a TKA . She reports she very concerned that the arthroscopic surgery did not fix her problem. She states she is returning to her PCP, Dr. De Los Santos, on 05/23/19 and she is going to talk with her about getting another opionion by orthopedic doctor [place] [employer] [place]. She also scheduled to see a chiropractor 05/18/19 . Pt states that her pain is no better after surgery and that it is 8-9/10 constant right knee pain. She states that elevating and ice are not helpful. She asks for ultrasound today. Pt explains that today is re-evaluation day post-op and that ultrasound can be performed during treatments but that since she is now post-op, PT will include strengthening, flexibility, gait and balance training. Pt does not report acceptance of this. She states that TENS has helped her in the past and she has a TENS that [facility] paid for. PT-OP-G Mobility & Gait Start: 03/21/19 09:02 Freq: Status: Active Protocol: Document 03/21/19 09:03 MB (Rec: 03/21/19 12:44 MB [id number]) OP Gait Assessment Gait Gait Assistance Required: Independent Comments Gait Comments Pt uses SPC in left hand, it is too short and she presents with increased Trendelenburg gait. PT raises walker 1 and her gait is much improved. PT-OP-J Posture/Palpation/Skin Start: 03/21/19 09:02 Freq: Status: Active Protocol: Document 03/21/19 09:03 MB (Rec: 03/21/19 12:48 MB [id number]) Skin Assessment Edema Assessment R LE Comments R knee and distal LE edema, ed pt in use of compression, ice and elevation and gave size H tubagrip PT-OP-K Range of Motion Start: 03/21/19 09:02 Freq: Status: Active Protocol: Document 05/16/19 14:31 MB (Rec: 05/16/19 16:16 MB [id number]) Knee Goniometric Range of Motion Knee Measured in Degrees R knee Knee ROM WFL No Patient Position Supine Flexion Active (degrees) 74 Extension Active (degrees) 0 PT-OP-M Strength Start: 03/21/19 09:02 Freq: Status: Active Protocol: Document 05/16/19 14:31 MB (Rec: 05/16/19 16:16 MB [id number]) Hip Strength Hip Manual Muscle Testing Right Reason Not Measured Pain Left Flexion (L2) 4 Good Abduction 3+ Fair+ Knee Strength Knee Manual Muscle Testing Right Reason Not Measured Pain Left Flexion (S2) 5 Normal Extension (L3) 5 Normal Ankle/Foot Strength Ankle and Foot Manual Muscle Testing Right Dorsiflexion (L4) 5 Normal Left Dorsiflexion (L4) 5 Normal Toe Strength Toe Manual Muscle Testing Left Great Toe Extension 4 Good Right Great Toe Extension 4 Good PT-OP-Q Treatments Start: 03/21/19 09:02 Freq: Status: Active Protocol: Document 04/21/19 09:46 MB (Rec: 04/21/19 10:33 MB [id number]) Manual Therapy Treatment Manual Techniques STM right gastroc head Comments STM proximal right gastroc Self-Care/Home Management Treatment Education Other Education RICE, APs, use of rolling walker for gait post-op, plan for post-op PT PT-OP-R Modalities Start: 03/21/19 09:02 Freq: Status: Active Protocol: Document 04/21/19 09:46 MB (Rec: 04/21/19 09:56 MB [id number]) Ultrasound Therapy Treatment R knee Treatment Duration (minutes) 10 Patient Position Supine Coupling Medium Ultrasound Gel Frequency Setting (mHz) 1 Mode Setting Continuous Duty Cycle 50% Intensity Setting (w/cm2) 1.6 Comments inferior/lateral patella of R knee PT-OP-T Assessment and Plan Start: 03/21/19 09:02 Freq: Status: Active Protocol: Document 05/16/19 14:31 MB (Rec: 05/16/19 16:16 MB [id number]) Physical Therapy Assessment Rehab Potential Rehabilitation Potential Fair Evaluation Complexity Number of Personal Factors/Comorbidities 1-2 Number of Body Systems Impaired 1-2 Impairments Other Impairments Pt's concerns about being told that she needs to have a TKA after her recent surgery--pt perseverates on this and is not receptive to PT education, PT encouraging her to call Dr Fiona Rollins's office to speak with him directly. Pt is also going to ask for another (this is third) orthopedic surgeon opinion. She is not very accepting of PT education that she will have to perform strengthening, other exercises with PT post-op. She con't to ask for US. Goals 7 Skilled Nursing Goal (LTG) Pt will perform 15 reps sit to stand without UE support in 30 sec to improve functional mobility by 07/17/19. LTG Duration 8 weeks 6 Endodontic Assistant Goal (LTG) Pt will present with improved B hip flexion and abduction and knee flexion and extension to 5/5 by 07/17/19. LTG Duration 8 weeks 5 Endodontic Assistant Goal (LTG) Pt will present with improved active right knee flexion to at least 120 deg by 07/17/19. LTG Duration 8 weeks 3 Impairment LE functional index score reflects 76% impairment Endodontic Assistant Goal (LTG) Pt will present with LE functional index score reflecting no more than 65% impairment by 07/17/19. LTG Duration 8 weeks 2 Impairment Weakness Endodontic Assistant Goal (LTG) Pt will I perform progressive HEP to improve flexibility, strength, balance and gait by 07/17/19. LTG Duration 8 weeks 1 Impairment R knee pain Endodontic Assistant Goal (LTG) Pt will report a 50% improvement in right knee 07/17. LTG Duration 8 weeks Assessment Summary Assessment Pt presents with decreased right knee ROM, strength and I gait post-op right knee arthroscopic surgery 04/28/19. She is gait training with minimal step-through gait with rolling walker this date. She states that her pain is no better post-op and rates pain as 8-9/10 in her right knee. See subjective comments. Pt presents upset and states that she was told that she needs a TKA on her post-op appointment on 05/11/19. She has talked with her vice president financial. She has also made an appointment with her PCP, Dr. De Los Santos, and is asking for another orthopedic opinion. PT encourages pt to call Dr. Rollins's office and speak with him about her concerns. PT calls Dr. Rollins's office and leaves message and asks to have doctor himself return PT' s call in order that PT might communicate pt reports and to clarify any PT recommendations . Pt has decreased receptiveness to PT education that she will have to perform strengthening, other exercises including ROM, gait and balance training now that she is post-op. She states that she does not feel listened to because her pain is not better . She requests US. PT will con 't to educate pt that she must progress towards PT goals in order to con't with PT. PT did set a pain goal and another self-report goal with the LEF. PT also set exercise, range, strength and sit to stand goal to reflect objective improvements. PT functional prognosis is fair to guarded. Participation may be a barrier to PT. Physical Therapy Plan Frequency and Duration Frequency of Treatment 2x/Week Duration of Treatment 8 weeks Plan of Care Start Date 05/16/19 Plan of Care End Date 07/17/19 Therapeutic Interventions Therapeutic Interventions Aquatic Therapy,Balance Training,Gait Training,Home Exercise Program,Joint Mobilizations,Manual Therapy, Neuromuscular Re-education, Patient/Caregiver Education, Self-Care/Home Management, Sensory Integration,Soft Tissue Mobilization,Taping, Therapeutic Activities, Therapeutic Exercises Modalities Cold Pack/Ice Massage,Electric Stimulation,Hot Packs, Infrared Therapy,Ultrasound Next Visit Focus/Plan Next Note Type Treatment Note Next Visit Plan Progress HEP as pt participates
--- NOTE | 2019-05-17 12:15 | PT-IP ANOTE ---
[address] Rollins's office returns PT's call and PT communicates concerns with her.
--- NOTE | 2019-05-18 09:48 | PT.OPDS ---
Current Diagnoses Pain in right hip (05/16/19) Pain in right knee (05/16/19) Visit Care Team Role Provider Type Kerri De Los Santos MD Primary Care Provider Non-Staff Specialty: Family Practice Address: [address] [place] [address], [id number] Email: Michelle Turner Attending Provider Non-Staff Specialty: Medical Address: [address] [place] [address], [address], [place], [phone] Fax: Email: Visit Number Visit Number 01/16 Discharge Summary PT-OP-B Current Condition Start: 03/21/19 09:02 Freq: Status: Active Protocol: Document 05/16/19 14:31 MB (Rec: 05/16/19 16:16 MB [id number]) Current Condition History of Current Condition Onset Date 04/28/19 History of Current Condition Pt post-op right knee arthroscopy 04/28/19 PT-OP-C Subjective Start: 03/21/19 09:02 Freq: Status: Active Protocol: Document 05/16/19 14:31 MB (Rec: 05/16/19 16:16 MB [id number]) OP-PT Subjective Patient Comments Patient Comments Pt arrives post-op right knee arthroscopy 04/28/19. Per op note, pt was found to have ACL intact, chondromalacia and loose cartilage flaps on the medial condyle which were debrided, full-thickness cartilage loss at the superior pole of the patella and synovitis in the patellofemoral joint which was resected with the shaver. Pt with order for WBAT. On re-eval date today, pt reports concern that PA at post-op appointment on 05/11/19 told her that she needs a TKA . She reports she very concerned that the arthroscopic surgery did not fix her problem. She states she is returning to her PCP, Dr. De Los Santos, on 05/23/19 and she is going to talk with her about getting another opionion by orthopedic doctor [place] the [employer]. She also scheduled to see a chiropractor 05/18/19 . Pt states that her pain is no better after surgery and that it is 8-9/10 constant right knee pain. She states that elevating and ice are not helpful. She asks for ultrasound today. Pt explains that today is re-evaluation day post-op and that ultrasound can be performed during treatments but that since she is now post-op, PT will include strengthening, flexibility, gait and balance training. Pt does not report acceptance of this. She states that TENS has helped her in the past and she has a TENS that [facility] paid for. PT-OP-G Mobility & Gait Start: 03/21/19 09:02 Freq: Status: Active Protocol: Document 03/21/19 09:03 MB (Rec: 03/21/19 12:44 MB [id number]) OP Gait Assessment Gait Gait Assistance Required: Independent Comments Gait Comments Pt uses SPC in left hand, it is too short and she presents with increased Trendelenburg gait. PT raises walker 1 and her gait is much improved. PT-OP-J Posture/Palpation/Skin Start: 03/21/19 09:02 Freq: Status: Active Protocol: Document 03/21/19 09:03 MB (Rec: 03/21/19 12:48 MB [id number]) Skin Assessment Edema Assessment R LE Comments R knee and distal LE edema, ed pt in use of compression, ice and elevation and gave size H tubagrip PT-OP-K Range of Motion Start: 03/21/19 09:02 Freq: Status: Active Protocol: Document 05/16/19 14:31 MB (Rec: 05/16/19 16:16 MB [id number]) Knee Goniometric Range of Motion Knee R knee Knee ROM WFL No Patient Position Supine Flexion Active (degrees) 74 Extension Active (degrees) 0 PT-OP-M Strength Start: 03/21/19 09:02 Freq: Status: Active Protocol: Document 05/16/19 14:31 MB (Rec: 05/16/19 16:16 MB [id number]) Hip Strength Hip Manual Muscle Testing Right Reason Not Measured Pain Left Flexion (L2) 4 Good Abduction 3+ Fair+ Knee Strength Knee Manual Muscle Testing Right Reason Not Measured Pain Left Flexion (S2) 5 Normal Extension (L3) 5 Normal Ankle/Foot Strength Ankle and Foot Manual Muscle Testing Right Dorsiflexion (L4) 5 Normal Left Dorsiflexion (L4) 5 Normal Toe Strength Toe Manual Muscle Testing Left Great Toe Extension 4 Good Right Great Toe Extension 4 Good PT-OP-T Assessment and Plan Start: 03/21/19 09:02 Freq: Status: Active Protocol: Document 05/18/19 09:43 MB (Rec: 05/18/19 09:47 MB [id number]) Physical Therapy Plan Discharge Physical Therapy Discharge Comments Pt needs to return to Dr. Rollins to get post-op order for PT with any PT restrictions and get pre-approval with before continuing with PT treatment. PT has communicated this with pt and pt reports understanding. She has a follow-up with Dr. Lira on 06/08/19. Will d/c PT at this time.
== END 2019-06-02 09:46 ==
LOC: PHYS 14:30
PROVIDERS: PCP Family Medicine; Visit Provider Nurse Practitioner Family
DX: M25.561 Pain in right knee (principal); M25.551 Pain in right hip
CPT/HCPCS: 97035; 97110; 97140; 97161; 97164; 97535

== ENCOUNTER → 2020-03-08 09:44 | Outpatient (CLI) | payer OTHER, SELFPAY ==
--- NOTE | 2020-03-08 | DI.MRI.S_ITS ---
PROCEDURE: MR KNEE RT WO/W CON INDICATIONS: Pain in right knee TECHNIQUE: Noncontrast sagittal PD fast spin echo and T2 fast spin echo with fat saturation, sagittal 3-D FLASH with fat saturation; coronal T1 spin echo and PD fast spin echo with fat saturation, and axial T1 spin echo and PD fast spin echo with fat saturation through the knee. Post-contrast axial, coronal, and sagittal T1 spin echo with fat saturation through the knee. COMPARISON: [facility], CR, XR KNEE 1 OR 2 VIEWS RIGHT, 02/12/2020, 20:20. FINDINGS: Image quality: Excellent. Menisci: Medial meniscus intact. Lateral meniscus intact. Cruciate ligaments: Anterior cruciate ligament appears intact. Posterior cruciate ligament appears intact. Medial structures: The medial collateral ligament appears intact. Semimembranosus tendon appears intact. Visualized portions of the pes anserinus tendons appear normal. No abnormal bursal fluid. Lateral structures: The lateral collateral ligament intact. Biceps femoris tendon appears intact. Popliteus tendon grossly unremarkable. Iliotibial band appears intact. Anterior structures: Quadriceps tendon intact. There is mild thickening and signal change, T2 hyperintense appearance of the medial patellofemoral ligament without complete rupture. There is mild patellar tendinopathy. Prepatellar and superficial infrapatellar subcutaneous edema/fluid. Bones and cartilage: No focal marrow contusion or discrete low signal fracture line. No suspicious enhancement. Within the medial compartment, mild intrasubstance signal changes however no focal cartilage defect. Within the lateral compartment, mild intrasubstance signal changes however no focal cartilage defect. Within the patellofemoral compartment, partial-thickness loss of the cartilage overlying the median patellar ridge and lateral facet. The femoral trochlear cartilage appears intact. Joint space: Small joint effusion. Burkett's cyst measuring approximately 6-7 cm in the cephalocaudal dimension. No specific evidence of intra-articular loose body. IMPRESSION: Small joint effusion. Sprain of the medial patellofemoral ligament, without definite complete rupture. Large Burkett's cyst Mild patellar tendinopathy with adjacent fluid and edema Mild joint degeneration , most pronounced in the patellofemoral compartment. Dictated by: Florentin Reece M.D. on 03/08/2020 at 10:51 Approved by: Florentin Reece M.D. on 03/08/2020 at 11:00
== END ==
PROVIDERS: PCP Family Medicine; Referring Provider Family Medicine; Visit Provider Family Medicine
DX: M25.561 Pain in right knee (principal); S76.111A Strain of right quadriceps muscle, fascia and tendon, initial encounter; M17.11 Unilateral primary osteoarthritis, right knee; M71.21 Synovial cyst of popliteal space [Baker], right knee; M25.461 Effusion, right knee
CPT/HCPCS: 73723

== ENCOUNTER 2020-09-26 09:45 | Outpatient (RCR) | payer OTHER, SELFPAY ==
--- NOTE | 2020-03-21 16:16 | PT.OIE ---
Current Diagnoses Pain in right knee (03/21/20) Visit Care Team Role Provider Type Kerri De Los Santos MD Attending Provider Non-Staff Primary Care Provider Referring Provider Specialty: Family Practice Address: [address] [place] [address], [id number] Email: Physical Therapy Initial Evaluation PT-OP-A Visit Information Start: 02/27/20 07:21 Freq: Status: Active Protocol: Document 03/21/20 13:30 MB (Rec: 03/21/20 14:01 MB [id number]) Out-Patient Physical Therapy Visit Information Visit Information Visit Type Initial Evaluation Visit Note Prime, 24 visits Visit Start Time 13:30 Visit Stop Time 14:12 Total Visit Minutes 42 Visit Number 1 Evaluation Information Evaluation Date 03/21/20 PT-OP-B Current Condition Start: 02/27/20 07:21 Freq: Status: Active Protocol: Document 03/21/20 13:30 MB (Rec: 03/21/20 14:01 MB [id number]) Current Condition History of Current Condition Onset Date 09/25/2018 Current Complaints Constant pain and swelling and pain right knee History of Current Condition Pt underwent right knee arthroscopic surgery 2019. Dr. Rollins did the surgery. She started PT and then reported she wanted further work-up from a second provider opinion. PT was then stopped. She gained a little weight and she has changed her diet and got a total gym. She went back to work part-time at [employer] January 2020. February 05 was her last day of work because her right knee swelled up again. She filed a claim with a manager biologics for L&I. She states that Dr. Rollins wants her to do a month of PT as well as get acupuncture. She is looking for a place to get acupuncture . Pt has to walk with cane in her left hand. She is doing a detox bath. She is frustrated with the pain and inability to work. Her mom has to have back surgery. She has been living with pt and family. Pt feels like she might need a TKR. She is tired of situation . Pt reports 6/10 constant right knee pain localized to anterior and posterior knee. Flexoril is helping her sleep. Icing helps her knee. She is using TENS on her right knee. Her machine is 15 years old and she asks about getting another one through this clinic. PMH: powdered latex, degenerative arthritis in her back, bruises easily, fall in [employer] last year when she injured her leg--she slipped on water, gastric bypass surgery, pt is taking Tylenol everyday Prior Treatments and Tests MRI 03/08/2020: small joint effusion, sprain of the medial patellofemoral ligament without definite complete rupture, large Burkett's cyst, mild patellar tendinopathy with adjacent fluid and edema, mild joint degeneration, most pronounced in the patellofemoral compartment. PT-OP-C Subjective Start: 02/27/20 07:21 Freq: Status: Active Protocol: Document 03/21/20 13:30 MB (Rec: 03/21/20 16:15 MB [id number]) OP-PT Subjective Patient Comments Patient Comments See history of current condition Patient Questionnaires Lower Extremity Functional Scale LEFS Score 44 LEFS Impairment 40 to 59% Impaired (Score 32- 47) PT-OP-D Balance Start: 02/27/20 07:21 Freq: Status: Active Protocol: Document 03/21/20 13:30 MB (Rec: 03/21/20 16:15 MB [id number]) OP-PT Balance Assessment Sitting Balance Static Sitting Balance Ability Good Dynamic Sitting Balance Ability Fair Sitting Balance Comments UE support for scooting EOB Standing Balance Static Standing Balance Ability Fair Dynamic Standing Balance Ability Fair Device Used SPC left hand Standing Balance Comments Pt decreases WB through RLE Dillon Fall Scale Copyright Permission PT-OP-G Mobility & Gait Start: 02/27/20 07:21 Freq: Status: Active Protocol: Document 03/21/20 13:30 MB (Rec: 03/21/20 16:15 MB [id number]) OP Mobility Evaluation Bed Mobility Rolling I Supine to and from Sit I Transfers Sit to Stand UE support OP Gait Assessment Gait Gait Assistance Required: Independent Distance (Feet) 70 Assistive Devices Assistive Device Straight Cane Gait Deviations General Gait Pattern Antalgic,Decreased Stride Length,Decreased Feet Clearance,Flexed Trunk Factors Limiting Gait Function Factors Limiting Gait Function Decreased Activity Tolerance, Decreased Strength,Limited Range of Motion,Pain,Poor Balance Comments Gait Comments Pt's SPC is tall and PT lowers it to the correct height PT-OP-J Posture/Palpation/Skin Start: 02/27/20 07:21 Freq: Status: Active Protocol: Document 03/21/20 13:30 MB (Rec: 03/21/20 16:15 MB [id number]) Posture Evaluation Comments Posture Comments Forward head, rounded shoulders and pt limits standing time and WB on right LE, flexed posture at hips and right knee, increased globalized soft tissue PT-OP-K Range of Motion Start: 02/27/20 07:21 Freq: Status: Active Protocol: Document 03/21/20 13:30 MB (Rec: 03/21/20 16:15 MB [id number]) Knee Goniometric Range of Motion Knee Left knee Knee ROM WFL No Patient Position Supine Flexion Active (degrees) 0 Extension Active (degrees) 100 R knee Knee ROM WFL No Patient Position Supine Flexion Active (degrees) 36 Extension Active (degrees) 11 PT-OP-M Strength Start: 02/27/20 07:21 Freq: Status: Active Protocol: Document 03/21/20 13:30 MB (Rec: 03/21/20 16:15 MB [id number]) Hip Strength Hip Manual Muscle Testing Right Comments Deferred d/t pt states she is worried about PT testing her right leg Left Flexion (L2) 4 Good Abduction 4 Good Knee Strength Knee Manual Muscle Testing Right Comments Deferred d/t pt states she is worried about PT testing her right leg Left Flexion (S2) 4 Good Extension (L3) 4 Good Ankle/Foot Strength Ankle and Foot Manual Muscle Testing Right Dorsiflexion (L4) 4 Good Left Dorsiflexion (L4) 5 Normal Toe Strength Toe Manual Muscle Testing Left Great Toe Extension 4 Good Right Great Toe Extension 4 Good PT-OP-Q Treatments Start: 02/27/20 07:21 Freq: Status: Active Protocol: Document 03/21/20 13:30 MB (Rec: 03/21/20 16:15 MB [id number]) Therapeutic Exercises Supine Exercises straight leg raise Side right Comments 1 rep and added to HEP heel slides Side bilateral Comments Handout provided and pt demos x1 ankle pumps Side bilateral Comments 5 reps during MMT evaluation, provided handout GS Comments Ed pt and provided handout for home Self-Care/Home Management Treatment Education Other Education Benefits of KT, pt states that taping that PT did last time hurt her knee. Benefits of icing. Benefits of performing gentle exercises that PT provides today (these were also given last PT course). Pt states that she wants a TENS machine and for to pay for it. PT educates pt that PT does not think that insurance will pay for it and to check with first. PT educates pt that one month PT trial is appropriate and that surgeon will expect for her to do some PT exercises during PT course and not just receive US and Counterstrain. PT-OP-T Assessment and Plan Start: 02/27/20 07:21 Freq: Status: Active Protocol: Document 03/21/20 13:30 MB (Rec: 03/21/20 16:15 MB [id number]) Physical Therapy Assessment Rehab Potential Rehabilitation Potential Poor Evaluation Complexity Number of Personal Factors/Comorbidities 3 or More Number of Body Systems Impaired 3 Clinical Presentation at Evaluation Evolving Impairments Other Impairments Personal factors include: obesity, history of seeking three opinions about her knee and multiple complaints about many providers, no benefit from PT last PT course, job requirements and pt upset about her work situation. Pt also believes that she needs a TKR. Body systems affected include musculoskeletal, neuromuscular and psychosocial . Her clinical presentation is evolving: she had injury 09/23 , surgery 04/26 and unsuccessful PT course afterwards. Goals 4 Fdc Goal (LTG) Pt will present with improved active right knee ROM to 5-100 deg to improve functional transfers and gait by 2019. LTG Duration 4 weeks 3 Fdc Goal (LTG) Pt will perform progressive HEP with I to improve ROM, strength, gait and balance by 04/18/2020. LTG Duration 4 weeks 2 Impairment Decreased gait Fdc Goal (LTG) Pt will gait train at least 1000 feet in six minutes with LRAD to improve basic community ambulation by 2019. LTG Duration 4 weeks 1 Impairment LEF score reflects 45% impairment Map Plotter Goal (LTG) Pt will present with an improved LEF score to reflect no more than 30% impairment to allow improved ability to perform work tasks and to reflect decreased pain by 05/2020. LTG Duration 4 weeks Assessment Summary Assessment Pt is a 45 y/o female presenting with ongoing right knee pain since injury in 09/23 and post-op arthroscopic surgery in 04/25. Pt received PT at this clinic with this PT pre-op and post-op at the end of 2018. At that time, pt reported many concerns about her surgery, communication with other providers and feelings that she needs a TKR. She reported having a manager biologics looking into her work and medical presentation. She reported pain with simple pre- op knee exercises including gentle ROM, pain with taping and requested that PT give her US. She did not tolerate any simple progressions with stationary bike or other functional activities. She repeats again today that she thinks that she needs a TKR. She has not been performing any knee exercises at home. They got a stationary bike but it is unclear if she is doing it or not. She reports weight gain, ongoing trouble with work and her L&I and legal case. She was told by her surgeon to try one month of PT and one month of acupuncture. She has not yet found an carpet repairer. This date, pt states that she hopes to get a new TENS unit from this clinic that she hopes that will pay for. PT educates her that it is possible that her insurance will not pay for a TENS unit and that she should clear with the insurance company directly. She requests manual PT intervention and US. PT educates her that PT will include exercises and it is unclear if she is open to this or not. Overall, her PT functional prognosis is poor. She did not tolerate gentle exercise progression or gait with PT previous PT course. Pt 's frequent comments about legal situation is also concerning for overall care. Will trial PT for no longer than one month. If she does not make functional progress with HEP, gait and ROM, will d /c PT and refer back to surgeon. Physical Therapy Plan Frequency and Duration Frequency of Treatment 2x/Week Duration of Treatment 4 weeks Plan of Care Start Date 03/21/20 Plan of Care End Date 04/22/20 Therapeutic Interventions Therapeutic Interventions Balance Training,Gait Training ,Home Exercise Program,Manual Therapy,Neuromuscular Re- education,Patient/Caregiver Education,Self-Care/Home Management,Sensory Integration ,Soft Tissue Mobilization, Taping,Therapeutic Activities, Therapeutic Exercises Modalities Cold Pack/Ice Massage,Electric Stimulation,Hot Packs, Ultrasound Other Referrals/Consults Referrals/Consults Recommended Possible counseling referral d /t many life stressors with work, legal situation and chronic pain Next Visit Focus/Plan Next Note Type Treatment Note Next Visit Plan Review simple ROM exercises given today and initiate Counterstrain
--- NOTE | 2020-03-21 16:18 | PT.OPPOC ---
Physical, Occupational & Speech Therapy At [facility] Current Diagnoses Pain in right knee (03/21/20) Visit Care Team Role Provider Type Kerri De Los Santos MD Attending Provider Non-Staff Primary Care Provider Referring Provider Specialty: Family Practice Address: [address] [place] [address], [id number] Email: Plan Of Care PT-OP-T Assessment and Plan Start: 02/27/20 07:21 Freq: Status: Active Protocol: Document 03/21/20 13:30 MB (Rec: 03/21/20 16:15 MB [id number]) Physical Therapy Assessment Rehab Potential Rehabilitation Potential Poor Evaluation Complexity Number of Personal Factors/Comorbidities 3 or More Number of Body Systems Impaired 3 Clinical Presentation at Evaluation Evolving Impairments Other Impairments Personal factors include: obesity, history of seeking three opinions about her knee and multiple complaints about many providers, no benefit from PT last PT course, job requirements and pt upset about her work situation. Pt also believes that she needs a TKR. Body systems affected include musculoskeletal, neuromuscular and psychosocial . Her clinical presentation is evolving: she had injury 09/23 , surgery 04/26 and unsuccessful PT course afterwards. Goals 4 Thermite Bomb Loader Goal (LTG) Pt will present with improved active right knee ROM to 5-100 deg to improve functional transfers and gait by 2019. LTG Duration 4 weeks 3 Thermite Bomb Loader Goal (LTG) Pt will perform progressive HEP with I to improve ROM, strength, gait and balance by 04/18/2020. LTG Duration 4 weeks 2 Impairment Decreased gait Snf Goal (LTG) Pt will gait train at least 1000 feet in six minutes with LRAD to improve basic community ambulation by 2019. LTG Duration 4 weeks 1 Impairment LEF score reflects 45% impairment Thermite Bomb Loader Goal (LTG) Pt will present with an improved LEF score to reflect no more than 30% impairment to allow improved ability to perform work tasks and to reflect decreased pain by 05/2020. LTG Duration 4 weeks Assessment Summary Assessment Pt is a 45 y/o female presenting with ongoing right knee pain since injury in 09/23 and post-op arthroscopic surgery in 04/25. Pt received PT at this clinic with this PT pre-op and post-op at the end of 2019. At that time, pt reported many concerns about her surgery, communication with other providers and feelings that she needs a TKR. She reported having a regional guide looking into her work and medical presentation. She reported pain with simple pre- op knee exercises including gentle ROM, pain with taping and requested that PT give her US. She did not tolerate any simple progressions with stationary bike or other functional activities. She repeats again today that she thinks that she needs a TKR. She has not been performing any knee exercises at home. They got a stationary bike but it is unclear if she is doing it or not. She reports weight gain, ongoing trouble with work and her L&I and legal case. She was told by her surgeon to try one month of PT and one month of acupuncture. She has not yet found an dairy helper. This date, pt states that she hopes to get a new TENS unit from this clinic that she hopes that will pay for. PT educates her that it is possible that her insurance will not pay for a TENS unit and that she should clear with the insurance company directly. She requests manual PT intervention and US. PT educates her that PT will include exercises and it is unclear if she is open to this or not. Overall, her PT functional prognosis is poor. She did not tolerate gentle exercise progression or gait with PT previous PT course. Pt 's frequent comments about legal situation is also concerning for overall care. Will trial PT for no longer than one month. If she does not make functional progress with HEP, gait and ROM, will d /c PT and refer back to surgeon. Physical Therapy Plan Frequency and Duration Frequency of Treatment 2x/Week Duration of Treatment 4 weeks Plan of Care Start Date 03/21/20 Plan of Care End Date 04/22/20 Therapeutic Interventions Therapeutic Interventions Balance Training,Gait Training ,Home Exercise Program,Manual Therapy,Neuromuscular Re- education,Patient/Caregiver Education,Self-Care/Home Management,Sensory Integration ,Soft Tissue Mobilization, Taping,Therapeutic Activities, Therapeutic Exercises Modalities Cold Pack/Ice Massage,Electric Stimulation,Hot Packs, Ultrasound Other Referrals/Consults Referrals/Consults Recommended Possible counseling referral d /t many life stressors with work, legal situation and chronic pain Next Visit Focus/Plan Next Note Type Treatment Note Next Visit Plan Review simple ROM exercises given today and initiate Counterstrain Plan of Care Dates Plan of Care Start Date 03/21/20 Plan of Care End Date 04/22/20 Electronically Signed by: Dixie Fam, PT 03/21/20 [id number] Please Sign and Return: I have reviewed this Plan of Care and certify that the skilled therapy services above are required to meet the patient?s needs. Physician Signature Date Printed Name and Credentials Clinical Instructor Signature Printed Name and Credentials
--- NOTE | 2020-03-26 11:17 | PT.OTN ---
Current Diagnoses Pain in right knee (03/26/20) Physical Therapy Treatment Note PT-OP-A Visit Information Start: 02/27/20 07:21 Freq: Status: Active Protocol: Document 03/26/20 10:37 MB (Rec: 03/26/20 11:15 MB [id number]) Out-Patient Physical Therapy Visit Information Visit Information Visit Type Treatment Note Visit Start Time 10:37 Visit Stop Time 11:15 Total Visit Minutes 38 Visit Number 2 PT-OP-B Current Condition Start: 02/27/20 07:21 Freq: Status: Active Protocol: Document 03/21/20 13:30 MB (Rec: 03/21/20 14:01 MB [id number]) Current Condition History of Current Condition Onset Date 09/25/2018 Current Complaints Constant pain and swelling and pain right knee History of Current Condition Pt underwent right knee arthroscopic surgery 2019. Dr. Rollins did the surgery. She started PT and then reported she wanted further work-up from a second provider opinion. PT was then stopped. She gained a little weight and she has changed her diet and got a total gym. She went back to work part-time at [employer] January 2020. February 05 was her last day of work because her right knee swelled up again. She filed a claim with a supervisor cloth winding for L&I. She states that Dr. Rollins wants her to do a month of PT as well as get acupuncture. She is looking for a place to get acupuncture . Pt has to walk with cane in her left hand. She is doing a detox bath. She is frustrated with the pain and inability to work. Her mom has to have back surgery. She has been living with pt and family. Pt feels like she might need a TKR. She is tired of situation . Pt reports 6/10 constant right knee pain localized to anterior and posterior knee. Flexoril is helping her sleep. Icing helps her knee. She is using TENS on her right knee. Her machine is 15 years old and she asks about getting another one through this clinic. PMH: powdered latex, degenerative arthritis in her back, bruises easily, fall in [facility] last year when she injured her leg--she slipped on water, gastric bypass surgery, pt is taking Tylenol everyday Prior Treatments and Tests MRI 03/08/2020: small joint effusion, sprain of the medial patellofemoral ligament without definite complete rupture, large Burkett's cyst, mild patellar tendinopathy with adjacent fluid and edema, mild joint degeneration, most pronounced in the patellofemoral compartment. PT-OP-C Subjective Start: 02/27/20 07:21 Freq: Status: Active Protocol: Document 03/26/20 10:37 MB (Rec: 03/26/20 11:15 MB [id number]) OP-PT Subjective Patient Comments Patient Comments I took a detox bath last night. PT-OP-D Balance Start: 02/27/20 07:21 Freq: Status: Active Protocol: Document 03/21/20 13:30 MB (Rec: 03/21/20 16:15 MB [id number]) OP-PT Balance Assessment Sitting Balance Static Sitting Balance Ability Good Dynamic Sitting Balance Ability Fair Sitting Balance Comments UE support for scooting EOB Standing Balance Static Standing Balance Ability Fair Dynamic Standing Balance Ability Fair Device Used SPC left hand Standing Balance Comments Pt decreases WB through RLE Dillon Fall Scale Copyright Permission PT-OP-G Mobility & Gait Start: 02/27/20 07:21 Freq: Status: Active Protocol: Document 03/21/20 13:30 MB (Rec: 03/21/20 16:15 MB [id number]) OP Mobility Evaluation Bed Mobility Rolling I Supine to and from Sit I Transfers Sit to Stand UE support OP Gait Assessment Gait Gait Assistance Required: Independent Distance (Feet) 70 Assistive Devices Assistive Device Straight Cane Gait Deviations General Gait Pattern Antalgic,Decreased Stride Length,Decreased Feet Clearance,Flexed Trunk Factors Limiting Gait Function Factors Limiting Gait Function Decreased Activity Tolerance, Decreased Strength,Limited Range of Motion,Pain,Poor Balance Comments Gait Comments Pt's SPC is tall and PT lowers it to the correct height PT-OP-J Posture/Palpation/Skin Start: 02/27/20 07:21 Freq: Status: Active Protocol: Document 03/21/20 13:30 MB (Rec: 03/21/20 16:15 MB [id number]) Posture Evaluation Comments Posture Comments Forward head, rounded shoulders and pt limits standing time and WB on right LE, flexed posture at hips and right knee, increased globalized soft tissue PT-OP-K Range of Motion Start: 02/27/20 07:21 Freq: Status: Active Protocol: Document 03/21/20 13:30 MB (Rec: 03/21/20 16:15 MB [id number]) Knee Goniometric Range of Motion Knee Left knee Knee ROM WFL No Patient Position Supine Flexion Active (degrees) 0 Extension Active (degrees) 100 R knee Knee ROM WFL No Patient Position Supine Flexion Active (degrees) 36 Extension Active (degrees) 11 PT-OP-M Strength Start: 02/27/20 07:21 Freq: Status: Active Protocol: Document 03/21/20 13:30 MB (Rec: 03/21/20 16:15 MB [id number]) Hip Strength Hip Manual Muscle Testing Right Comments Deferred d/t pt states she is worried about PT testing her right leg Left Flexion (L2) 4 Good Abduction 4 Good Knee Strength Knee Manual Muscle Testing Right Comments Deferred d/t pt states she is worried about PT testing her right leg Left Flexion (S2) 4 Good Extension (L3) 4 Good Ankle/Foot Strength Ankle and Foot Manual Muscle Testing Right Dorsiflexion (L4) 4 Good Left Dorsiflexion (L4) 5 Normal Toe Strength Toe Manual Muscle Testing Left Great Toe Extension 4 Good Right Great Toe Extension 4 Good PT-OP-Q Treatments Start: 02/27/20 07:21 Freq: Status: Active Protocol: Document 03/26/20 10:37 MB (Rec: 03/26/20 11:15 MB [id number]) Gait Training Gait Activity 6MWT Comments 763.5 feet with SPC in left hand and pt with 1 rest break. Decreased foot clearance and step-length, greater on the right. Pt reports 6/10 pain before, during and after gait in right knee Other gait throughout PT treatment Manual Therapy Treatment Other Other Manual Treatments Pt agrees to Counterstrain to assess and treat fascial tension and she presents with tension in the following systems: ALL, LF, DPR, AINTS UE. PT treats: ALL cervical to lumbar area. Pt has trouble relaxing all joints for passive movement PT-OP-T Assessment and Plan Start: 02/27/20 07:21 Freq: Status: Active Protocol: Document 03/26/20 10:37 MB (Rec: 03/26/20 11:15 MB [id number]) Physical Therapy Assessment Rehab Potential Rehabilitation Potential Poor Evaluation Complexity Number of Personal Factors/Comorbidities 3 or More Number of Body Systems Impaired 3 Clinical Presentation at Evaluation Evolving Impairments Other Impairments Personal factors include: obesity, history of seeking three opinions about her knee and multiple complaints about many providers, no benefit from PT last PT course, job requirements and pt upset about her work situation. Pt also believes that she needs a TKR. Body systems affected include musculoskeletal, neuromuscular and psychosocial . Her clinical presentation is evolving: she had injury 09/23 , surgery 04/26 and unsuccessful PT course afterwards. Goals 4 Assisted Goal (LTG) Pt will present with improved active right knee ROM to 5-100 deg to improve functional transfers and gait by 2019. LTG Duration 4 weeks 3 Assisted Goal (LTG) Pt will perform progressive HEP with I to improve ROM, strength, gait and balance by 04/18/2020. LTG Duration 4 weeks 2 Impairment Decreased gait Guest House Manager Goal (LTG) Pt will gait train at least 1000 feet in six minutes with LRAD to improve basic community ambulation by 2019. LTG Duration 4 weeks 1 Impairment LEF score reflects 45% impairment Guest House Manager Goal (LTG) Pt will present with an improved LEF score to reflect no more than 30% impairment to allow improved ability to perform work tasks and to reflect decreased pain by 05/2020. LTG Duration 4 weeks Assessment Summary Assessment Initiated 6MWT today and pt reports 6/10 right knee pain before and during gait. PT initiates Counterstrain today to assess and treat fascial tension per pt request and PT agrees that this is a good treatment for pt. She has trouble relaxing for passive treatment and responds well to treatment. PT ed pt that PT does not think that will pay for TENS unit and that she can call if she is going to pursue that. PT re-ed pt that PT will con't with exercises, gait and functional activities along with manual with improve gait, function, range and strength. Icing after treatment today: right knee with support as needed under knees. Physical Therapy Plan Frequency and Duration Frequency of Treatment 2x/Week Duration of Treatment 4 weeks Plan of Care Start Date 03/21/20 Plan of Care End Date 04/22/20 Therapeutic Interventions Therapeutic Interventions Balance Training,Gait Training ,Home Exercise Program,Manual Therapy,Neuromuscular Re- education,Patient/Caregiver Education,Self-Care/Home Management,Sensory Integration ,Soft Tissue Mobilization, Taping,Therapeutic Activities, Therapeutic Exercises Modalities Cold Pack/Ice Massage,Electric Stimulation,Hot Packs, Ultrasound Other Referrals/Consults Referrals/Consults Recommended Possible counseling referral d /t many life stressors with work, legal situation and chronic pain Next Visit Focus/Plan Next Note Type Treatment Note Next Visit Plan Try stationary bike to assess how her range is and review how hers goes at home. 6MWT and then other exercises as pt tolerates
--- NOTE | 2020-03-28 09:45 | PT.OTN ---
Current Diagnoses Pain in right knee (03/28/20) Physical Therapy Treatment Note PT-OP-A Visit Information Start: 02/27/20 07:21 Freq: Status: Active Protocol: Document 03/28/20 08:17 SP (Rec: 03/28/20 11:50 SP [id number]) Out-Patient Physical Therapy Visit Information Visit Information Visit Type Treatment Note Visit Start Time 08:17 Visit Stop Time 09:00 Total Visit Minutes 43 Visit Number 3 Number of SELF PROPELLED HOT MIX ROLLER OPERATOR Visits 1 PT-OP-B Current Condition Start: 02/27/20 07:21 Freq: Status: Active Protocol: Document 03/21/20 13:30 MB (Rec: 03/21/20 14:01 MB [id number]) Current Condition History of Current Condition Onset Date 09/25/2018 Current Complaints Constant pain and swelling and pain right knee History of Current Condition Pt underwent right knee arthroscopic surgery 2019. Dr. Rollins did the surgery. She started PT and then reported she wanted further work-up from a second provider opinion. PT was then stopped. She gained a little weight and she has changed her diet and got a total gym. She went back to work part-time at [employer] January 2020. February 05 was her last day of work because her right knee swelled up again. 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 She states that Dr. Rollins wants her to do a month of PT as well as get acupuncture. She is looking for a place to get acupuncture . Pt has to walk with cane in her left hand. She is doing a detox bath. She is frustrated with the pain and inability to work. Her mom has to have back surgery. She has been living with pt and family. Pt feels like she might need a TKR. She is tired of situation . Pt reports 6/10 constant right knee pain localized to anterior and posterior knee. Flexoril is helping her sleep. Icing helps her knee. She is using TENS on her right knee. Her machine is 15 years old and she asks about getting another one through this clinic. PMH: powdered latex, degenerative arthritis in her back, bruises easily, fall in [employer] last year when she injured her leg--she slipped on water, gastric bypass surgery, pt is taking Tylenol everyday Prior Treatments and Tests MRI 03/08/2020: small joint effusion, sprain of the medial patellofemoral ligament without definite complete rupture, large Burkett's cyst, mild patellar tendinopathy with adjacent fluid and edema, mild joint degeneration, most pronounced in the patellofemoral compartment. PT-OP-C Subjective Start: 02/27/20 07:21 Freq: Status: Active Protocol: Document 03/28/20 08:17 SP (Rec: 03/28/20 11:50 SP [id number]) OP-PT Subjective Patient Comments Patient Comments Pt reported little tired upon arrival, took flexoral last night. Pt stated K taping had to be removed that PT did last tx due to bothering her knee within 10 min after left tx but the taping that physician felt better, has a pic in phone to try and assimulate today. Pt stated when walks her R knee pops that is audibly heard by family member at times and hurts wanting to help stop. PT-OP-D Balance Start: 02/27/20 07:21 Freq: Status: Active Protocol: Document 03/21/20 13:30 MB (Rec: 03/21/20 16:15 MB [id number]) OP-PT Balance Assessment Sitting Balance Static Sitting Balance Ability Good Dynamic Sitting Balance Ability Fair Sitting Balance Comments UE support for scooting EOB Standing Balance Static Standing Balance Ability Fair Dynamic Standing Balance Ability Fair Device Used SPC left hand Standing Balance Comments Pt decreases WB through RLE Dillon Fall Scale Copyright Permission PT-OP-G Mobility & Gait Start: 02/27/20 07:21 Freq: Status: Active Protocol: Document 03/21/20 13:30 MB (Rec: 03/21/20 16:15 MB [id number]) OP Mobility Evaluation Bed Mobility Rolling I Supine to and from Sit I Transfers Sit to Stand UE support OP Gait Assessment Gait Gait Assistance Required: Independent Distance (Feet) 70 Assistive Devices Assistive Device Straight Cane Gait Deviations General Gait Pattern Antalgic,Decreased Stride Length,Decreased Feet Clearance,Flexed Trunk Factors Limiting Gait Function Factors Limiting Gait Function Decreased Activity Tolerance, Decreased Strength,Limited Range of Motion,Pain,Poor Balance Comments Gait Comments Pt's SPC is tall and PT lowers it to the correct height PT-OP-J Posture/Palpation/Skin Start: 02/27/20 07:21 Freq: Status: Active Protocol: Document 03/21/20 13:30 MB (Rec: 03/21/20 16:15 MB [id number]) Posture Evaluation Comments Posture Comments Forward head, rounded shoulders and pt limits standing time and WB on right LE, flexed posture at hips and right knee, increased globalized soft tissue PT-OP-K Range of Motion Start: 02/27/20 07:21 Freq: Status: Active Protocol: Document 03/21/20 13:30 MB (Rec: 03/21/20 16:15 MB [id number]) Knee Goniometric Range of Motion Knee Left knee Knee ROM WFL No Patient Position Supine Flexion Active (degrees) 0 Extension Active (degrees) 100 R knee Knee ROM WFL No Patient Position Supine Flexion Active (degrees) 36 Extension Active (degrees) 11 PT-OP-M Strength Start: 02/27/20 07:21 Freq: Status: Active Protocol: Document 03/21/20 13:30 MB (Rec: 03/21/20 16:15 MB [id number]) Hip Strength Hip Manual Muscle Testing Right Comments Deferred d/t pt states she is worried about PT testing her right leg Left Flexion (L2) 4 Good Abduction 4 Good Knee Strength Knee Manual Muscle Testing Right Comments Deferred d/t pt states she is worried about PT testing her right leg Left Flexion (S2) 4 Good Extension (L3) 4 Good Ankle/Foot Strength Ankle and Foot Manual Muscle Testing Right Dorsiflexion (L4) 4 Good Left Dorsiflexion (L4) 5 Normal Toe Strength Toe Manual Muscle Testing Left Great Toe Extension 4 Good Right Great Toe Extension 4 Good PT-OP-Q Treatments Start: 02/27/20 07:21 Freq: Status: Active Protocol: Document 03/28/20 08:17 SP (Rec: 03/28/20 11:50 SP [id number]) Cardio Equipment Recumbent Elliptical (Biodex) Duration (Minutes) 5 Resistance 0 (cue for ROM focus tolerance ), loosed track with conversation Seat Position 9 Other 6-7/10 R knee pre/post tolerable reported Therapeutic Exercises Supine Exercises straight leg raise Supine Exercise Name review HEP Side right Reps/Minutes 2x8 Comments cued slow control- good demo HEP review heel slides Supine Exercise Name review HEP Side bilateral Reps/Minutes 2 x5 Standing Exercises Heel raises Standing Exercise Name HEP review Side bilateral Resistance AROM Reps/Minutes 2x5 Comments slow controlled w/ med/lat/ant /post stability of R knee- goo demo hip abd Standing Exercise Name HEP review Side right Resistance AROM Equipment Used contact table Reps/Minutes x5 R, x2 L, stopped L due to R knee popped Comments cued only perform LLE abd if RLE sasha Manual Therapy Treatment Taping R knee support Body Location R knee Treatment Focus medial patella tracking Type of Tape Kinesio Tape Comments KT 2 strips: R lateral patella horizontal slight angle superiorly & medial strip and smaller strip lateral patella horizontal going medially inferior patella to encourage patella stabiliztaion PT-OP-R Modalities Start: 02/27/20 07:21 Freq: Status: Active Protocol: Document 03/28/20 08:17 SP (Rec: 03/28/20 11:50 SP [id number]) Ultrasound Therapy Treatment R knee Treatment Duration (minutes) 8 Patient Position Supine Frequency Setting (mHz) 1 Mode Setting Pulsed Duty Cycle 50% Intensity Setting (w/cm2) 1.0 Comments inferior/lateral patella of R knee PT-OP-T Assessment and Plan Start: 02/27/20 07:21 Freq: Status: Active Protocol: Document 03/28/20 08:17 SP (Rec: 03/28/20 11:50 SP [id number]) Physical Therapy Assessment Goals 4 Alf Goal (LTG) Pt will present with improved active right knee ROM to 5-100 deg to improve functional transfers and gait by 2019. LTG Duration 4 weeks 7 [facility] Facility Psychiatrist Goal (LTG) Pt will perform 15 reps sit to stand without UE support in 30 sec to improve functional mobility by 07/17/19. LTG Duration 8 weeks 6 [facility] Facility Psychiatrist Goal (LTG) Pt will present with improved B hip flexion and abduction and knee flexion and extension to 5/5 by 07/17/19. LTG Duration 8 weeks 5 Alf Goal (LTG) Pt will present with improved active right knee flexion to at least 120 deg by 07/17/19. LTG Duration 8 weeks 3 [facility] Facility Psychiatrist Goal (LTG) Pt will perform progressive HEP with I to improve ROM, strength, gait and balance by 04/18/2020. LTG Duration 4 weeks 2 Impairment Decreased gait Correctional Facility Psychiatrist Goal (LTG) Pt will gait train at least 1000 feet in six minutes with LRAD to improve basic community ambulation by 2019. LTG Duration 4 weeks 1 Impairment LEF score reflects 45% impairment Correction[facility] Facility Psychiatrist Goal (LTG) Pt will present with an improved LEF score to reflect no more than 30% impairment to allow improved ability to perform work tasks and to reflect decreased pain by 05/2020. LTG Duration 4 weeks Assessment Summary Assessment Pt concerned with her R knee pain and popping at times when walks/turns wanting to improve. The K taping with medial stabillization helped support knee better that feels more like physician did but knows to remove if bothersome (causes pain or skin irritation) and let us know when returns. Pt was able to assess warm up on biodex bike today with no increased pain 6/10 with midrange movement (noted settign in today's note) and reviewed HEP can continue at home with good alignment and reps for tolerance awareness. Pt able to walk with little less WB on SPC when leaving today. Physical Therapy Plan Frequency and Duration Frequency of Treatment 2x/Week Duration of Treatment 4 weeks Plan of Care Start Date 03/21/20 Plan of Care End Date 04/22/20 Therapeutic Interventions Therapeutic Interventions Balance Training,Gait Training ,Home Exercise Program,Manual Therapy,Neuromuscular Re- education,Patient/Caregiver Education,Self-Care/Home Management,Sensory Integration ,Soft Tissue Mobilization, Taping,Therapeutic Activities, Therapeutic Exercises Modalities Cold Pack/Ice Massage,Electric Stimulation,Hot Packs, Ultrasound Other Referrals/Consults Referrals/Consults Recommended Possible counseling referral d /t many life stressors with work, legal situation and chronic pain Next Visit Focus/Plan Next Note Type Treatment Note Next Visit Plan Assess response to stationary bike, K taping and basic HEP today. NExt tx assess how her range is and review how hers goes at home. 6MWT, bike and then other exercises as pt tolerates
--- NOTE | 2020-04-02 14:30 | PT.OTN ---
Current Diagnoses Pain in right knee (04/02/20) Physical Therapy Treatment Note PT-OP-A Visit Information Start: 02/27/20 07:21 Freq: Status: Active Protocol: Document 04/02/20 13:51 SP (Rec: 04/02/20 14:33 SP [id number]) Out-Patient Physical Therapy Visit Information Visit Information Visit Type Treatment Note Visit Start Time 13:51 Visit Stop Time 14:30 Total Visit Minutes 38 Visit Number 4 Number of BILLBOARD POSTER Visits 2 PT-OP-B Current Condition Start: 02/27/20 07:21 Freq: Status: Active Protocol: Document 03/21/20 13:30 MB (Rec: 03/21/20 14:01 MB [id number]) Current Condition History of Current Condition Onset Date 09/25/2018 Current Complaints Constant pain and swelling and pain right knee History of Current Condition Pt underwent right knee arthroscopic surgery 2019. Dr. Rollins did the surgery. She started PT and then reported she wanted further work-up from a second provider opinion. PT was then stopped. She gained a little weight and she has changed her diet and got a total gym. She went back to work part-time at [employer] January 2020. February 05 was her last day of work because her right knee swelled up again. She filed a claim with a fire boss for L&I. She states that Dr. Rollins wants her to do a month of PT as well as get acupuncture. She is looking for a place to get acupuncture . Pt has to walk with cane in her left hand. She is doing a detox bath. She is frustrated with the pain and inability to work. Her mom has to have back surgery. She has been living with pt and family. Pt feels like she might need a TKR. She is tired of situation . Pt reports 6/10 constant right knee pain localized to anterior and posterior knee. Flexoril is helping her sleep. Icing helps her knee. She is using TENS on her right knee. Her machine is 15 years old and she asks about getting another one through this clinic. PMH: powdered latex, degenerative arthritis in her back, bruises easily, fall in [employer] last year when she injured her leg--she slipped on water, gastric bypass surgery, pt is taking Tylenol everyday Prior Treatments and Tests MRI 03/08/2020: small joint effusion, sprain of the medial patellofemoral ligament without definite complete rupture, large Burkett's cyst, mild patellar tendinopathy with adjacent fluid and edema, mild joint degeneration, most pronounced in the patellofemoral compartment. PT-OP-C Subjective Start: 02/27/20 07:21 Freq: Status: Active Protocol: Document 04/02/20 13:51 SP (Rec: 04/02/20 14:33 SP [id number]) OP-PT Subjective Patient Comments Patient Comments Pt reported recently taking an over the counter OmegaXL for detox and causing a oral blistering, doesn't want to do any exercises today due to R knee hurting. Pt requested only doing US and massage to help feel better. Pt declined activity with R knee today I don't want to do any stretching or exercises so not make pain worse. Provided education in importance of muscle activation for strengthening and stability with response of not today. PT-OP-D Balance Start: 02/27/20 07:21 Freq: Status: Active Protocol: Document 03/21/20 13:30 MB (Rec: 03/21/20 16:15 MB [id number]) OP-PT Balance Assessment Sitting Balance Static Sitting Balance Ability Good Dynamic Sitting Balance Ability Fair Sitting Balance Comments UE support for scooting EOB Standing Balance Static Standing Balance Ability Fair Dynamic Standing Balance Ability Fair Device Used SPC left hand Standing Balance Comments Pt decreases WB through RLE Dillon Fall Scale Copyright Permission PT-OP-G Mobility & Gait Start: 02/27/20 07:21 Freq: Status: Active Protocol: Document 03/21/20 13:30 MB (Rec: 03/21/20 16:15 MB [id number]) OP Mobility Evaluation Bed Mobility Rolling I Supine to and from Sit I Transfers Sit to Stand UE support OP Gait Assessment Gait Gait Assistance Required: Independent Distance (Feet) 70 Assistive Devices Assistive Device Straight Cane Gait Deviations General Gait Pattern Antalgic,Decreased Stride Length,Decreased Feet Clearance,Flexed Trunk Factors Limiting Gait Function Factors Limiting Gait Function Decreased Activity Tolerance, Decreased Strength,Limited Range of Motion,Pain,Poor Balance Comments Gait Comments Pt's SPC is tall and PT lowers it to the correct height PT-OP-J Posture/Palpation/Skin Start: 02/27/20 07:21 Freq: Status: Active Protocol: Document 03/21/20 13:30 MB (Rec: 03/21/20 16:15 MB [id number]) Posture Evaluation Comments Posture Comments Forward head, rounded shoulders and pt limits standing time and WB on right LE, flexed posture at hips and right knee, increased globalized soft tissue PT-OP-K Range of Motion Start: 02/27/20 07:21 Freq: Status: Active Protocol: Document 03/21/20 13:30 MB (Rec: 03/21/20 16:15 MB [id number]) Knee Goniometric Range of Motion Knee Left knee Knee ROM WFL No Patient Position Supine Flexion Active (degrees) 0 Extension Active (degrees) 100 R knee Knee ROM WFL No Patient Position Supine Flexion Active (degrees) 36 Extension Active (degrees) 11 PT-OP-M Strength Start: 02/27/20 07:21 Freq: Status: Active Protocol: Document 03/21/20 13:30 MB (Rec: 03/21/20 16:15 MB [id number]) Hip Strength Hip Manual Muscle Testing Right Comments Deferred d/t pt states she is worried about PT testing her right leg Left Flexion (L2) 4 Good Abduction 4 Good Knee Strength Knee Manual Muscle Testing Right Comments Deferred d/t pt states she is worried about PT testing her right leg Left Flexion (S2) 4 Good Extension (L3) 4 Good Ankle/Foot Strength Ankle and Foot Manual Muscle Testing Right Dorsiflexion (L4) 4 Good Left Dorsiflexion (L4) 5 Normal Toe Strength Toe Manual Muscle Testing Left Great Toe Extension 4 Good Right Great Toe Extension 4 Good PT-OP-Q Treatments Start: 02/27/20 07:21 Freq: Status: Active Protocol: Document 04/02/20 13:51 SP (Rec: 04/02/20 14:33 SP [id number]) Therapeutic Exercises Sitting Exercises HS curl seated TB Sitting Exercise Name added HEP Resistance TB #1 anchored Reps/Minutes 10 x x2 sets Comments cued seated all way back in chair, slow concentric/ eccentric- good damion LAQ Sitting Exercise Name Added HEP Resistance AROM Reps/Minutes x10 Comments cued slow muscular control- good damion Standing Exercises Heel raises Standing Exercise Name HEP review Side bilateral Resistance AROM Equipment Used rail Reps/Minutes 2x10 Comments slow controlled w/ med/lat/ant /post stability of R knee- goo demo Manual Therapy Treatment Taping R knee support Body Location R knee Treatment Focus medial patella tracking Type of Tape Kinesio Tape Skin Inspection intact normal color- instruction self application Comments KT 2 strips: R lateral patella horizontal slight angle superiorly & medial strip and smaller strip lateral patella horizontal going medially inferior patella to encourage patella stabiliztaion PT-OP-R Modalities Start: 02/27/20 07:21 Freq: Status: Active Protocol: Document 04/02/20 13:51 SP (Rec: 04/02/20 14:33 SP [id number]) Ultrasound Therapy Treatment R knee Treatment Duration (minutes) 8 Patient Position Supine Frequency Setting (mHz) 1 Mode Setting Pulsed Duty Cycle 50% Intensity Setting (w/cm2) 1.0 Comments inferior/lateral patella of R knee PT-OP-T Assessment and Plan Start: 02/27/20 07:21 Freq: Status: Active Protocol: Document 04/02/20 13:51 SP (Rec: 04/02/20 14:33 SP [id number]) Physical Therapy Assessment Goals 4 Buyer Intern Goal (LTG) Pt will present with improved active right knee ROM to 5-100 deg to improve functional transfers and gait by 2019. LTG Duration 4 weeks 7 Buyer Intern Goal (LTG) Pt will perform 15 reps sit to stand without UE support in 30 sec to improve functional mobility by 07/17/19. LTG Duration 8 weeks 6 Snf Goal (LTG) Pt will present with improved B hip flexion and abduction and knee flexion and extension to 5/5 by 07/17/19. LTG Duration 8 weeks 5 Snf Goal (LTG) Pt will present with improved active right knee flexion to at least 120 deg by 07/17/19. LTG Duration 8 weeks 3 Snf Goal (LTG) Pt will perform progressive HEP with I to improve ROM, strength, gait and balance by 04/18/2020. LTG Duration 4 weeks 2 Impairment Decreased gait Buyer Intern Goal (LTG) Pt will gait train at least 1000 feet in six minutes with LRAD to improve basic community ambulation by 2019. LTG Duration 4 weeks 1 Impairment LEF score reflects 45% impairment Buyer Intern Goal (LTG) Pt will present with an improved LEF score to reflect no more than 30% impairment to allow improved ability to perform work tasks and to reflect decreased pain by 05/2020. LTG Duration 4 weeks Assessment Summary Assessment Pt tolerated tx well, reported decrease in R knee pain and instructed self application of K taping medial glide stabilization today so can reapply herself with good demo , has pic in her phone to utilize for recall. Understood education of importance of following through with ther ex for strength and stabilization to improve pain and functional activity level, no adverse affects to tx. Next tx continue progress standing activity. Physical Therapy Plan Frequency and Duration Frequency of Treatment 2x/Week Duration of Treatment 4 weeks Plan of Care Start Date 03/21/20 Plan of Care End Date 04/22/20 Therapeutic Interventions Therapeutic Interventions Balance Training,Gait Training ,Home Exercise Program,Manual Therapy,Neuromuscular Re- education,Patient/Caregiver Education,Self-Care/Home Management,Sensory Integration ,Soft Tissue Mobilization, Taping,Therapeutic Activities, Therapeutic Exercises Modalities Cold Pack/Ice Massage,Electric Stimulation,Hot Packs, Ultrasound Other Referrals/Consults Referrals/Consults Recommended Possible counseling referral d /t many life stressors with work, legal situation and chronic pain Next Visit Focus/Plan Next Note Type Treatment Note Next Visit Plan Assess response to LE ex K taping, US and basic seated HEP today, added HS curl TB and LAQ, unable to tolerated gait distance or bike today but reported will work on more in future tx with agreement. Continue per PT POC: next tx assess how her range is and review how hers goes at home. 6MWT, bike and then other exercises as pt tolerates
--- NOTE | 2020-04-04 08:58 | PT.OTN ---
Current Diagnoses Pain in right knee (04/04/20) Physical Therapy Treatment Note PT-OP-A Visit Information Start: 02/27/20 07:21 Freq: Status: Active Protocol: Document 04/04/20 08:16 MB (Rec: 04/04/20 08:51 MB [id number]) Out-Patient Physical Therapy Visit Information Visit Information Visit Type Treatment Note Visit Start Time 08:16 Visit Stop Time 09:00 Total Visit Minutes 44 Visit Number 5 Number of ALLOY WEIGHER Visits 0 PT-OP-B Current Condition Start: 02/27/20 07:21 Freq: Status: Active Protocol: Document 03/21/20 13:30 MB (Rec: 03/21/20 14:01 MB [id number]) Current Condition History of Current Condition Onset Date 09/25/2018 Current Complaints Constant pain and swelling and pain right knee History of Current Condition Pt underwent right knee arthroscopic surgery 2019. Dr. Rollins did the surgery. She started PT and then reported she wanted further work-up from a second provider opinion. PT was then stopped. She gained a little weight and she has changed her diet and got a total gym. She went back to work part-time at [employer] January 2020. February 05 was her last day of work because her right knee swelled up again. 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 She states that Dr. Rollins wants her to do a month of PT as well as get acupuncture. She is looking for a place to get acupuncture . Pt has to walk with cane in her left hand. She is doing a detox bath. She is frustrated with the pain and inability to work. Her mom has to have back surgery. She has been living with pt and family. Pt feels like she might need a TKR. She is tired of situation . Pt reports 6/10 constant right knee pain localized to anterior and posterior knee. Flexoril is helping her sleep. Icing helps her knee. She is using TENS on her right knee. Her machine is 15 years old and she asks about getting another one through this clinic. PMH: powdered latex, degenerative arthritis in her back, bruises easily, fall in [facility] [employer] last year when she injured her leg--she slipped on water, gastric bypass surgery, pt is taking Tylenol everyday Prior Treatments and Tests MRI 03/08/2020: small joint effusion, sprain of the medial patellofemoral ligament without definite complete rupture, large Burkett's cyst, mild patellar tendinopathy with adjacent fluid and edema, mild joint degeneration, most pronounced in the patellofemoral compartment. PT-OP-C Subjective Start: 02/27/20 07:21 Freq: Status: Active Protocol: Document 04/04/20 08:16 MB (Rec: 04/04/20 08:51 MB [id number]) OP-PT Subjective Patient Comments Patient Comments She did taping over the outside of the knee. I can do it at home. Pt states that she is feeling a little bit better. The pain is between a 5-6/10. PT-OP-D Balance Start: 02/27/20 07:21 Freq: Status: Active Protocol: Document 03/21/20 13:30 MB (Rec: 03/21/20 16:15 MB [id number]) OP-PT Balance Assessment Sitting Balance Static Sitting Balance Ability Good Dynamic Sitting Balance Ability Fair Sitting Balance Comments UE support for scooting EOB Standing Balance Static Standing Balance Ability Fair Dynamic Standing Balance Ability Fair Device Used SPC left hand Standing Balance Comments Pt decreases WB through RLE Dillon Fall Scale Copyright Permission PT-OP-G Mobility & Gait Start: 02/27/20 07:21 Freq: Status: Active Protocol: Document 03/21/20 13:30 MB (Rec: 03/21/20 16:15 MB [id number]) OP Mobility Evaluation Bed Mobility Rolling I Supine to and from Sit I Transfers Sit to Stand UE support OP Gait Assessment Gait Gait Assistance Required: Independent Distance (Feet) 70 Assistive Devices Assistive Device Straight Cane Gait Deviations General Gait Pattern Antalgic,Decreased Stride Length,Decreased Feet Clearance,Flexed Trunk Factors Limiting Gait Function Factors Limiting Gait Function Decreased Activity Tolerance, Decreased Strength,Limited Range of Motion,Pain,Poor Balance Comments Gait Comments Pt's SPC is tall and PT lowers it to the correct height PT-OP-J Posture/Palpation/Skin Start: 02/27/20 07:21 Freq: Status: Active Protocol: Document 03/21/20 13:30 MB (Rec: 03/21/20 16:15 MB [id number]) Posture Evaluation Comments Posture Comments Forward head, rounded shoulders and pt limits standing time and WB on right LE, flexed posture at hips and right knee, increased globalized soft tissue PT-OP-K Range of Motion Start: 02/27/20 07:21 Freq: Status: Active Protocol: Document 03/21/20 13:30 MB (Rec: 03/21/20 16:15 MB [id number]) Knee Goniometric Range of Motion Knee Left knee Knee ROM WFL No Patient Position Supine Flexion Active (degrees) 0 Extension Active (degrees) 100 R knee Knee ROM WFL No Patient Position Supine Flexion Active (degrees) 36 Extension Active (degrees) 11 PT-OP-M Strength Start: 02/27/20 07:21 Freq: Status: Active Protocol: Document 03/21/20 13:30 MB (Rec: 03/21/20 16:15 MB [id number]) Hip Strength Hip Manual Muscle Testing Right Comments Deferred d/t pt states she is worried about PT testing her right leg Left Flexion (L2) 4 Good Abduction 4 Good Knee Strength Knee Manual Muscle Testing Right Comments Deferred d/t pt states she is worried about PT testing her right leg Left Flexion (S2) 4 Good Extension (L3) 4 Good Ankle/Foot Strength Ankle and Foot Manual Muscle Testing Right Dorsiflexion (L4) 4 Good Left Dorsiflexion (L4) 5 Normal Toe Strength Toe Manual Muscle Testing Left Great Toe Extension 4 Good Right Great Toe Extension 4 Good PT-OP-Q Treatments Start: 02/27/20 07:21 Freq: Status: Active Protocol: Document 04/04/20 08:16 MB (Rec: 04/04/20 08:51 MB [id number]) Cardio Equipment Recumbent Elliptical (Biodex) Duration (Minutes) 12 Resistance 0 Therapeutic Exercises Supine Exercises straight leg raise Side right Reps/Minutes 5 reps slowly Comments Cued to flex foot and move slowly hip abd Supine Exercise Name Side lying today, added to HEP Comments 5 reps slowly, cues for form, right leg, to do B at home heel slides Comments 5 reps today, right leg ankle pumps Comments 5 reps sitting today GS Comments 5 reps B, 3 sec hold supine today Standing Exercises TKE Comments Right leg, level 1 band around knee, 5 reps Other Exercises Rolling pin massage quads Comments Right quads sitting Manual Therapy Treatment Other Other Manual Treatments STM right quads and grade 1-2 patellar mobs attempted but pt has trouble relaxing quads despite pillow and towel roll support under knee PT-OP-R Modalities Start: 02/27/20 07:21 Freq: Status: Active Protocol: Document 04/02/20 13:51 SP (Rec: 04/02/20 14:33 SP [id number]) Ultrasound Therapy Treatment R knee Treatment Duration (minutes) 8 Patient Position Supine Frequency Setting (mHz) 1 Mode Setting Pulsed Duty Cycle 50% Intensity Setting (w/cm2) 1.0 Comments inferior/lateral patella of R knee PT-OP-T Assessment and Plan Start: 02/27/20 07:21 Freq: Status: Active Protocol: Document 04/04/20 08:16 MB (Rec: 04/04/20 08:51 MB [id number]) Physical Therapy Assessment Goals 4 Chcf Goal (LTG) Pt will present with improved active right knee ROM to 5-100 deg to improve functional transfers and gait by 2019. LTG Duration 4 weeks 7 [facility] Goal (LTG) Pt will perform 15 reps sit to stand without UE support in 30 sec to improve functional mobility by 07/17/19. LTG Duration 8 weeks 6 Tar Distillation Supervisor Goal (LTG) Pt will present with improved B hip flexion and abduction and knee flexion and extension to 5/5 by 07/17/19. LTG Duration 8 weeks 5 [facility] Goal (LTG) Pt will present with improved active right knee flexion to at least 120 deg by 07/17/19. LTG Duration 8 weeks 3 [facility] Goal (LTG) Pt will perform progressive HEP with I to improve ROM, strength, gait and balance by 04/18/2020. LTG Duration 4 weeks 2 Impairment Decreased gait Tar Distillation Supervisor Goal (LTG) Pt will gait train at least 1000 feet in six minutes with LRAD to improve basic community ambulation by 2019. LTG Duration 4 weeks 1 Impairment LEF score reflects 45% impairment [facility] Goal (LTG) Pt will present with an improved LEF score to reflect no more than 30% impairment to allow improved ability to perform work tasks and to reflect decreased pain by 05/2020. LTG Duration 4 weeks Assessment Summary Assessment Progressed exercises today to include side lying abduction, SLR, TKR and self-massage with rolling pin. Gentle manual work on right quads today after treatment. Pt will tape at home. Her gait is a little better today with the SPC in left hand. Physical Therapy Plan Frequency and Duration Frequency of Treatment 2x/Week Duration of Treatment 4 weeks Plan of Care Start Date 03/21/20 Plan of Care End Date 04/22/20 Therapeutic Interventions Therapeutic Interventions Balance Training,Gait Training ,Home Exercise Program,Manual Therapy,Neuromuscular Re- education,Patient/Caregiver Education,Self-Care/Home Management,Sensory Integration ,Soft Tissue Mobilization, Taping,Therapeutic Activities, Therapeutic Exercises Modalities Cold Pack/Ice Massage,Electric Stimulation,Hot Packs, Ultrasound Other Referrals/Consults Referrals/Consults Recommended Possible counseling referral d /t many life stressors with work, legal situation and chronic pain Next Visit Focus/Plan Next Note Type Treatment Note Next Visit Plan Progress exercises, 6MWT, bike and then other exercises as pt tolerates
--- NOTE | 2020-04-08 09:03 | PT.OTN ---
Current Diagnoses Pain in right knee (04/08/20) Physical Therapy Treatment Note PT-OP-A Visit Information Start: 02/27/20 07:21 Freq: Status: Active Protocol: Document 04/08/20 08:15 MB (Rec: 04/08/20 08:50 MB [id number]) Out-Patient Physical Therapy Visit Information Visit Information Visit Type Treatment Note Visit Start Time 08:15 Visit Stop Time 08:58 Total Visit Minutes 43 Visit Number 6 PT-OP-B Current Condition Start: 02/27/20 07:21 Freq: Status: Active Protocol: Document 03/21/20 13:30 MB (Rec: 03/21/20 14:01 MB [id number]) Current Condition History of Current Condition Onset Date 09/25/2018 Current Complaints Constant pain and swelling and pain right knee History of Current Condition Pt underwent right knee arthroscopic surgery 2019. Dr. Rollins did the surgery. She started PT and then reported she wanted further work-up from a second provider opinion. PT was then stopped. She gained a little weight and she has changed her diet and got a total gym. She went back to work part-time at [employer] January 2020. February 05 was her last day of work because her right knee swelled up again. She filed a claim with a helper electrical for [employer]. She states that Dr. Rollins wants her to do a month of PT as well as get acupuncture. She is looking for a place to get acupuncture . Pt has to walk with cane in her left hand. She is doing a detox bath. She is frustrated with the pain and inability to work. Her mom has to have back surgery. She has been living with pt and family. Pt feels like she might need a TKR. She is tired of situation . Pt reports 6/10 constant right knee pain localized to anterior and posterior knee. Flexoril is helping her sleep. Icing helps her knee. She is using TENS on her right knee. Her machine is 15 years old and she asks about getting another one through this clinic. PMH: powdered latex, degenerative arthritis in her back, bruises easily, fall in [facility] last year when she injured her leg--she slipped on water, gastric bypass surgery, pt is taking Tylenol everyday Prior Treatments and Tests MRI 03/08/2020: small joint effusion, sprain of the medial patellofemoral ligament without definite complete rupture, large Burkett's cyst, mild patellar tendinopathy with adjacent fluid and edema, mild joint degeneration, most pronounced in the patellofemoral compartment. PT-OP-C Subjective Start: 02/27/20 07:21 Freq: Status: Active Protocol: Document 04/08/20 08:15 MB (Rec: 04/08/20 08:50 MB [id number]) OP-PT Subjective Patient Comments Patient Comments I'm wearing this to make other people smile. I am not smiling. When PT comments that pt's smiley mask is nice. Pt reports pain and that the weather is cold. She is changing up her CBD lotion. Pt states that she doing two sets of exercises each day. PT-OP-D Balance Start: 02/27/20 07:21 Freq: Status: Active Protocol: Document 03/21/20 13:30 MB (Rec: 03/21/20 16:15 MB [id number]) OP-PT Balance Assessment Sitting Balance Static Sitting Balance Ability Good Dynamic Sitting Balance Ability Fair Sitting Balance Comments UE support for scooting EOB Standing Balance Static Standing Balance Ability Fair Dynamic Standing Balance Ability Fair Device Used SPC left hand Standing Balance Comments Pt decreases WB through RLE Dillon Fall Scale Copyright Permission PT-OP-G Mobility & Gait Start: 02/27/20 07:21 Freq: Status: Active Protocol: Document 03/21/20 13:30 MB (Rec: 03/21/20 16:15 MB [id number]) OP Mobility Evaluation Bed Mobility Rolling I Supine to and from Sit I Transfers Sit to Stand UE support OP Gait Assessment Gait Gait Assistance Required: Independent Distance (Feet) 70 Assistive Devices Assistive Device Straight Cane Gait Deviations General Gait Pattern Antalgic,Decreased Stride Length,Decreased Feet Clearance,Flexed Trunk Factors Limiting Gait Function Factors Limiting Gait Function Decreased Activity Tolerance, Decreased Strength,Limited Range of Motion,Pain,Poor Balance Comments Gait Comments Pt's SPC is tall and PT lowers it to the correct height PT-OP-J Posture/Palpation/Skin Start: 02/27/20 07:21 Freq: Status: Active Protocol: Document 03/21/20 13:30 MB (Rec: 03/21/20 16:15 MB [id number]) Posture Evaluation Comments Posture Comments Forward head, rounded shoulders and pt limits standing time and WB on right LE, flexed posture at hips and right knee, increased globalized soft tissue PT-OP-K Range of Motion Start: 02/27/20 07:21 Freq: Status: Active Protocol: Document 03/21/20 13:30 MB (Rec: 03/21/20 16:15 MB [id number]) Knee Goniometric Range of Motion Knee Left knee Knee ROM WFL No Patient Position Supine Flexion Active (degrees) 0 Extension Active (degrees) 100 R knee Knee ROM WFL No Patient Position Supine Flexion Active (degrees) 36 Extension Active (degrees) 11 PT-OP-M Strength Start: 02/27/20 07:21 Freq: Status: Active Protocol: Document 03/21/20 13:30 MB (Rec: 03/21/20 16:15 MB [id number]) Hip Strength Hip Manual Muscle Testing Right Comments Deferred d/t pt states she is worried about PT testing her right leg Left Flexion (L2) 4 Good Abduction 4 Good Knee Strength Knee Manual Muscle Testing Right Comments Deferred d/t pt states she is worried about PT testing her right leg Left Flexion (S2) 4 Good Extension (L3) 4 Good Ankle/Foot Strength Ankle and Foot Manual Muscle Testing Right Dorsiflexion (L4) 4 Good Left Dorsiflexion (L4) 5 Normal Toe Strength Toe Manual Muscle Testing Left Great Toe Extension 4 Good Right Great Toe Extension 4 Good PT-OP-Q Treatments Start: 02/27/20 07:21 Freq: Status: Active Protocol: Document 04/08/20 08:15 MB (Rec: 04/08/20 08:50 MB [id number]) Cardio Equipment Recumbent Elliptical (Biodex) Duration (Minutes) 10 Resistance 2 Therapeutic Exercises Supine Exercises straight leg raise Side bilateral Reps/Minutes 5 reps Comments Cued to flex foot and move slowly hip abd Supine Exercise Name Side lying today, added to HEP Side bilateral Comments 5 reps slowly, cues for form heel slides Comments 5 reps today, right leg Standing Exercises TKE Comments Right leg, level 1 band around knee, 10 reps Other Exercises Rolling pin massage quads Comments Right quads sitting Manual Therapy Treatment Other Other Manual Treatments Left side lying: gentle right vastus lateralis STM with rolling pin Supine: STM right quads, greatest lateral, gentle lavage posterior knee to hamstring, therapy cream used. Pt's patella does not relax to allow mobilization today PT-OP-R Modalities Start: 02/27/20 07:21 Freq: Status: Active Protocol: Document 04/02/20 13:51 SP (Rec: 04/02/20 14:33 SP [id number]) Ultrasound Therapy Treatment R knee Treatment Duration (minutes) 8 Patient Position Supine Frequency Setting (mHz) 1 Mode Setting Pulsed Duty Cycle 50% Intensity Setting (w/cm2) 1.0 Comments inferior/lateral patella of R knee PT-OP-T Assessment and Plan Start: 02/27/20 07:21 Freq: Status: Active Protocol: Document 04/08/20 08:15 MB (Rec: 04/08/20 08:50 MB [id number]) Physical Therapy Assessment Goals 4 Fdc Goal (LTG) Pt will present with improved active right knee ROM to 5-100 deg to improve functional transfers and gait by 2019. LTG Duration 4 weeks 7 Director Of Curriculum And Instruction Goal (LTG) Pt will perform 15 reps sit to stand without UE support in 30 sec to improve functional mobility by 07/17/19. LTG Duration 8 weeks 6 Director Of Curriculum And Instruction Goal (LTG) Pt will present with improved B hip flexion and abduction and knee flexion and extension to 5/5 by 07/17/19. LTG Duration 8 weeks 5 Fdc Goal (LTG) Pt will present with improved active right knee flexion to at least 120 deg by 07/17/19. LTG Duration 8 weeks 3 Director Of Curriculum And Instruction Goal (LTG) Pt will perform progressive HEP with I to improve ROM, strength, gait and balance by 04/18/2020. LTG Duration 4 weeks 2 Impairment Decreased gait Director Of Curriculum And Instruction Goal (LTG) Pt will gait train at least 1000 feet in six minutes with LRAD to improve basic community ambulation by 2019. LTG Duration 4 weeks 1 Impairment LEF score reflects 45% impairment Fdc Goal (LTG) Pt will present with an improved LEF score to reflect no more than 30% impairment to allow improved ability to perform work tasks and to reflect decreased pain by 05/2020. LTG Duration 4 weeks Assessment Summary Assessment Pt con't with reports of pain and has antalgic gait, favoring the right leg. She states that she is performing her exercises at home and she demonstrates well today. Physical Therapy Plan Frequency and Duration Frequency of Treatment 2x/Week Duration of Treatment 4 weeks Plan of Care Start Date 03/21/20 Plan of Care End Date 04/22/20 Therapeutic Interventions Therapeutic Interventions Balance Training,Gait Training ,Home Exercise Program,Manual Therapy,Neuromuscular Re- education,Patient/Caregiver Education,Self-Care/Home Management,Sensory Integration ,Soft Tissue Mobilization, Taping,Therapeutic Activities, Therapeutic Exercises Modalities Cold Pack/Ice Massage,Electric Stimulation,Hot Packs, Ultrasound Other Referrals/Consults Referrals/Consults Recommended Possible counseling referral d /t many life stressors with work, legal situation and chronic pain Next Visit Focus/Plan Next Note Type Treatment Note Next Visit Plan Re-check 6MWT, consider sit to stands, progress stretches and strengthening
--- NOTE | 2020-04-10 09:02 | PT.OTN ---
Current Diagnoses Pain in right knee (04/10/20) Physical Therapy Treatment Note PT-OP-A Visit Information Start: 02/27/20 07:21 Freq: Status: Active Protocol: Document 04/10/20 08:15 MB (Rec: 04/10/20 09:00 MB [id number]) Out-Patient Physical Therapy Visit Information Visit Information Visit Type Treatment Note Visit Start Time 08:15 Visit Stop Time 09:00 Total Visit Minutes 45 Visit Number 7 PT-OP-B Current Condition Start: 02/27/20 07:21 Freq: Status: Active Protocol: Document 03/21/20 13:30 MB (Rec: 03/21/20 14:01 MB [id number]) Current Condition History of Current Condition Onset Date 09/25/2018 Current Complaints Constant pain and swelling and pain right knee History of Current Condition Pt underwent right knee arthroscopic surgery 2019. Dr. Rollins did the surgery. She started PT and then reported she wanted further work-up from a second provider opinion. PT was then stopped. She gained a little weight and she has changed her diet and got a total gym. She went back to work part-time at [employer] January 2020. February 05 was her last day of work because her right knee swelled up again. She filed a claim with a organ tuner for [employer]. She states that Dr. Rollins wants her to do a month of PT as well as get acupuncture. She is looking for a place to get acupuncture . Pt has to walk with cane in her left hand. She is doing a detox bath. She is frustrated with the pain and inability to work. Her mom has to have back surgery. She has been living with pt and family. Pt feels like she might need a TKR. She is tired of situation . Pt reports 6/10 constant right knee pain localized to anterior and posterior knee. Flexoril is helping her sleep. Icing helps her knee. She is using TENS on her right knee. Her machine is 15 years old and she asks about getting another one through this clinic. PMH: powdered latex, degenerative arthritis in her back, bruises easily, fall in [facility] last year when she injured her leg--she slipped on water, gastric bypass surgery, pt is taking Tylenol everyday Prior Treatments and Tests MRI 03/08/2020: small joint effusion, sprain of the medial patellofemoral ligament without definite complete rupture, large Burkett's cyst, mild patellar tendinopathy with adjacent fluid and edema, mild joint degeneration, most pronounced in the patellofemoral compartment. PT-OP-C Subjective Start: 02/27/20 07:21 Freq: Status: Active Protocol: Document 04/10/20 08:15 MB (Rec: 04/10/20 09:00 MB [id number]) OP-PT Subjective Patient Comments Patient Comments The pain goes from 5-6. I've been icing a lot. PT-OP-D Balance Start: 02/27/20 07:21 Freq: Status: Active Protocol: Document 03/21/20 13:30 MB (Rec: 03/21/20 16:15 MB [id number]) OP-PT Balance Assessment Sitting Balance Static Sitting Balance Ability Good Dynamic Sitting Balance Ability Fair Sitting Balance Comments UE support for scooting EOB Standing Balance Static Standing Balance Ability Fair Dynamic Standing Balance Ability Fair Device Used SPC left hand Standing Balance Comments Pt decreases WB through RLE Dillon Fall Scale Copyright Permission PT-OP-G Mobility & Gait Start: 02/27/20 07:21 Freq: Status: Active Protocol: Document 03/21/20 13:30 MB (Rec: 03/21/20 16:15 MB [id number]) OP Mobility Evaluation Bed Mobility Rolling I Supine to and from Sit I Transfers Sit to Stand UE support OP Gait Assessment Gait Gait Assistance Required: Independent Distance (Feet) 70 Assistive Devices Assistive Device Straight Cane Gait Deviations General Gait Pattern Antalgic,Decreased Stride Length,Decreased Feet Clearance,Flexed Trunk Factors Limiting Gait Function Factors Limiting Gait Function Decreased Activity Tolerance, Decreased Strength,Limited Range of Motion,Pain,Poor Balance Comments Gait Comments Pt's SPC is tall and PT lowers it to the correct height PT-OP-J Posture/Palpation/Skin Start: 02/27/20 07:21 Freq: Status: Active Protocol: Document 03/21/20 13:30 MB (Rec: 03/21/20 16:15 MB [id number]) Posture Evaluation Comments Posture Comments Forward head, rounded shoulders and pt limits standing time and WB on right LE, flexed posture at hips and right knee, increased globalized soft tissue PT-OP-K Range of Motion Start: 02/27/20 07:21 Freq: Status: Active Protocol: Document 03/21/20 13:30 MB (Rec: 03/21/20 16:15 MB [id number]) Knee Goniometric Range of Motion Knee Left knee Knee ROM WFL No Patient Position Supine Flexion Active (degrees) 0 Extension Active (degrees) 100 R knee Knee ROM WFL No Patient Position Supine Flexion Active (degrees) 36 Extension Active (degrees) 11 PT-OP-M Strength Start: 02/27/20 07:21 Freq: Status: Active Protocol: Document 03/21/20 13:30 MB (Rec: 03/21/20 16:15 MB [id number]) Hip Strength Hip Manual Muscle Testing Right Comments Deferred d/t pt states she is worried about PT testing her right leg Left Flexion (L2) 4 Good Abduction 4 Good Knee Strength Knee Manual Muscle Testing Right Comments Deferred d/t pt states she is worried about PT testing her right leg Left Flexion (S2) 4 Good Extension (L3) 4 Good Ankle/Foot Strength Ankle and Foot Manual Muscle Testing Right Dorsiflexion (L4) 4 Good Left Dorsiflexion (L4) 5 Normal Toe Strength Toe Manual Muscle Testing Left Great Toe Extension 4 Good Right Great Toe Extension 4 Good PT-OP-Q Treatments Start: 02/27/20 07:21 Freq: Status: Active Protocol: Document 04/10/20 08:15 MB (Rec: 04/10/20 09:00 MB [id number]) Cardio Equipment Recumbent Elliptical (Biodex) Duration (Minutes) 13 Resistance 2 Therapeutic Exercises Sitting Exercises Ankle DF and eversion with band Comments 10 reps slowly, level 1 band Hip abduction with band Comments 10 reps slowly, level 1 band today Standing Exercises TKE Standing Exercise Name Resistance to the right side and behind Comments Right leg, level 2 band, 5 reps slowly Manual Therapy Treatment Other Other Manual Treatments Pt supine: STM right quads, greatest lateral and distal PT-OP-R Modalities Start: 02/27/20 07:21 Freq: Status: Active Protocol: Document 04/02/20 13:51 SP (Rec: 04/02/20 14:33 SP [id number]) Ultrasound Therapy Treatment R knee Treatment Duration (minutes) 8 Patient Position Supine Frequency Setting (mHz) 1 Mode Setting Pulsed Duty Cycle 50% Intensity Setting (w/cm2) 1.0 Comments inferior/lateral patella of R knee PT-OP-T Assessment and Plan Start: 02/27/20 07:21 Freq: Status: Active Protocol: Document 04/10/20 08:15 MB (Rec: 04/10/20 09:00 MB [id number]) Physical Therapy Assessment Goals 4 Retort Furnace Operator Goal (LTG) Pt will present with improved active right knee ROM to 5-100 deg to improve functional transfers and gait by 2019. LTG Duration 4 weeks 7 Retort Furnace Operator Goal (LTG) Pt will perform 15 reps sit to stand without UE support in 30 sec to improve functional mobility by 07/17/19. LTG Duration 8 weeks 6 Retort Furnace Operator Goal (LTG) Pt will present with improved B hip flexion and abduction and knee flexion and extension to 5/5 by 07/17/19. LTG Duration 8 weeks 5 Retort Furnace Operator Goal (LTG) Pt will present with improved active right knee flexion to at least 120 deg by 07/17/19. LTG Duration 8 weeks 3 Penitentiary Goal (LTG) Pt will perform progressive HEP with I to improve ROM, strength, gait and balance by 04/18/2020. LTG Duration 4 weeks 2 Impairment Decreased gait Penitentiary Goal (LTG) Pt will gait train at least 1000 feet in six minutes with LRAD to improve basic community ambulation by 2019. LTG Duration 4 weeks 1 Impairment LEF score reflects 45% impairment Penitentiary Goal (LTG) Pt will present with an improved LEF score to reflect no more than 30% impairment to allow improved ability to perform work tasks and to reflect decreased pain by 05/2020. LTG Duration 4 weeks Assessment Summary Assessment Progression of leg strengthening today in sitting and progressed TKE band resistance today. Con't progression as pt tolerates. Physical Therapy Plan Frequency and Duration Frequency of Treatment 2x/Week Duration of Treatment 4 weeks Plan of Care Start Date 03/21/20 Plan of Care End Date 04/22/20 Therapeutic Interventions Therapeutic Interventions Balance Training,Gait Training ,Home Exercise Program,Manual Therapy,Neuromuscular Re- education,Patient/Caregiver Education,Self-Care/Home Management,Sensory Integration ,Soft Tissue Mobilization, Taping,Therapeutic Activities, Therapeutic Exercises Modalities Cold Pack/Ice Massage,Electric Stimulation,Hot Packs, Ultrasound Other Referrals/Consults Referrals/Consults Recommended Possible counseling referral d /t many life stressors with work, legal situation and chronic pain Next Visit Focus/Plan Next Note Type Treatment Note Next Visit Plan Re-check 6MWT, consider sit to stands, progress stretches and strengthening
--- NOTE | 2020-04-16 08:43 | PT.OTN ---
Current Diagnoses Pain in right knee (04/16/20) Physical Therapy Treatment Note PT-OP-A Visit Information Start: 02/27/20 07:21 Freq: Status: Active Protocol: Document 04/16/20 08:15 MB (Rec: 04/16/20 08:43 MB [id number]) Out-Patient Physical Therapy Visit Information Visit Information Visit Type Treatment Note Visit Start Time 08:15 Visit Stop Time 08:30 Total Visit Minutes 15 Visit Number 8 PT-OP-B Current Condition Start: 02/27/20 07:21 Freq: Status: Active Protocol: Document 03/21/20 13:30 MB (Rec: 03/21/20 14:01 MB [id number]) Current Condition History of Current Condition Onset Date 09/25/2018 Current Complaints Constant pain and swelling and pain right knee History of Current Condition Pt underwent right knee arthroscopic surgery 2019. Dr. Rollins did the surgery. She started PT and then reported she wanted further work-up from a second provider opinion. PT was then stopped. She gained a little weight and she has changed her diet and got a total gym. She went back to work part-time at [employer] January 2020. February 05 was her last day of work because her right knee swelled up again. She filed a claim with a refrigerating engineer head for [employer]. She states that Dr. Rollins wants her to do a month of PT as well as get acupuncture. She is looking for a place to get acupuncture . Pt has to walk with cane in her left hand. She is doing a detox bath. She is frustrated with the pain and inability to work. Her mom has to have back surgery. She has been living with pt and family. Pt feels like she might need a TKR. She is tired of situation . Pt reports 6/10 constant right knee pain localized to anterior and posterior knee. Flexoril is helping her sleep. Icing helps her knee. She is using TENS on her right knee. Her machine is 15 years old and she asks about getting another one through this clinic. PMH: powdered latex, degenerative arthritis in her back, bruises easily, fall in [facility] last year when she injured her leg--she slipped on water, gastric bypass surgery, pt is taking Tylenol everyday Prior Treatments and Tests MRI 03/08/2020: small joint effusion, sprain of the medial patellofemoral ligament without definite complete rupture, large Burkett's cyst, mild patellar tendinopathy with adjacent fluid and edema, mild joint degeneration, most pronounced in the patellofemoral compartment. PT-OP-C Subjective Start: 02/27/20 07:21 Freq: Status: Active Protocol: Document 04/16/20 08:15 MB (Rec: 04/16/20 08:43 MB [id number]) OP-PT Subjective Patient Comments Patient Comments I have to show you something. Pt pulls up left pant leg and has purplish bruise on her medial distal calf. Pt states that this came about after taking a detox bath after last PT treatment. She correlates the bruise with using the therapy band around the outside of her ankles and knees with PT. PT-OP-D Balance Start: 02/27/20 07:21 Freq: Status: Active Protocol: Document 03/21/20 13:30 MB (Rec: 03/21/20 16:15 MB [id number]) OP-PT Balance Assessment Sitting Balance Static Sitting Balance Ability Good Dynamic Sitting Balance Ability Fair Sitting Balance Comments UE support for scooting EOB Standing Balance Static Standing Balance Ability Fair Dynamic Standing Balance Ability Fair Device Used SPC left hand Standing Balance Comments Pt decreases WB through RLE Dillon Fall Scale Copyright Permission PT-OP-G Mobility & Gait Start: 02/27/20 07:21 Freq: Status: Active Protocol: Document 03/21/20 13:30 MB (Rec: 03/21/20 16:15 MB [id number]) OP Mobility Evaluation Bed Mobility Rolling I Supine to and from Sit I Transfers Sit to Stand UE support OP Gait Assessment Gait Gait Assistance Required: Independent Distance (Feet) 70 Assistive Devices Assistive Device Straight Cane Gait Deviations General Gait Pattern Antalgic,Decreased Stride Length,Decreased Feet Clearance,Flexed Trunk Factors Limiting Gait Function Factors Limiting Gait Function Decreased Activity Tolerance, Decreased Strength,Limited Range of Motion,Pain,Poor Balance Comments Gait Comments Pt's SPC is tall and PT lowers it to the correct height PT-OP-J Posture/Palpation/Skin Start: 02/27/20 07:21 Freq: Status: Active Protocol: Document 03/21/20 13:30 MB (Rec: 03/21/20 16:15 MB [id number]) Posture Evaluation Comments Posture Comments Forward head, rounded shoulders and pt limits standing time and WB on right LE, flexed posture at hips and right knee, increased globalized soft tissue PT-OP-K Range of Motion Start: 02/27/20 07:21 Freq: Status: Active Protocol: Document 03/21/20 13:30 MB (Rec: 03/21/20 16:15 MB [id number]) Knee Goniometric Range of Motion Knee Left knee Knee ROM WFL No Patient Position Supine Flexion Active (degrees) 0 Extension Active (degrees) 100 R knee Knee ROM WFL No Patient Position Supine Flexion Active (degrees) 36 Extension Active (degrees) 11 PT-OP-M Strength Start: 02/27/20 07:21 Freq: Status: Active Protocol: Document 03/21/20 13:30 MB (Rec: 03/21/20 16:15 MB [id number]) Hip Strength Hip Manual Muscle Testing Right Comments Deferred d/t pt states she is worried about PT testing her right leg Left Flexion (L2) 4 Good Abduction 4 Good Knee Strength Knee Manual Muscle Testing Right Comments Deferred d/t pt states she is worried about PT testing her right leg Left Flexion (S2) 4 Good Extension (L3) 4 Good Ankle/Foot Strength Ankle and Foot Manual Muscle Testing Right Dorsiflexion (L4) 4 Good Left Dorsiflexion (L4) 5 Normal Toe Strength Toe Manual Muscle Testing Left Great Toe Extension 4 Good Right Great Toe Extension 4 Good PT-OP-Q Treatments Start: 02/27/20 07:21 Freq: Status: Active Protocol: Document 04/16/20 08:15 MB (Rec: 04/16/20 08:43 MB [id number]) Self-Care/Home Management Treatment Education Other Education PT ed pt that the area where she has her bruise is not an area that pt exercised last treatment date. Her bruise is on her medial left gastroc and exercises worked on anterior tibialis and hip abductors. Bands did not touch the inside of her leg. PT ed pt to call referring provider/PCP and try to get in before next PT treatment later in the week. Ed pt in possibility of vericose vein irritation. PT-OP-R Modalities Start: 02/27/20 07:21 Freq: Status: Active Protocol: Document 04/02/20 13:51 SP (Rec: 04/02/20 14:33 SP [id number]) Ultrasound Therapy Treatment R knee Treatment Duration (minutes) 8 Patient Position Supine Frequency Setting (mHz) 1 Mode Setting Pulsed Duty Cycle 50% Intensity Setting (w/cm2) 1.0 Comments inferior/lateral patella of R knee PT-OP-T Assessment and Plan Start: 02/27/20 07:21 Freq: Status: Active Protocol: Document 04/16/20 08:15 MB (Rec: 04/16/20 08:43 MB [id number]) Physical Therapy Assessment Goals 4 Gyn Physician Goal (LTG) Pt will present with improved active right knee ROM to 5-100 deg to improve functional transfers and gait by 2019. LTG Duration 4 weeks 7 Gyn Physician Goal (LTG) Pt will perform 15 reps sit to stand without UE support in 30 sec to improve functional mobility by 07/17/19. LTG Duration 8 weeks 6 Gyn Physician Goal (LTG) Pt will present with improved B hip flexion and abduction and knee flexion and extension to 5/5 by 07/17/19. LTG Duration 8 weeks 5 Gyn Physician Goal (LTG) Pt will present with improved active right knee flexion to at least 120 deg by 07/17/19. LTG Duration 8 weeks 3 Gyn Physician Goal (LTG) Pt will perform progressive HEP with I to improve ROM, strength, gait and balance by 04/18/2020. LTG Duration 4 weeks 2 Impairment Decreased gait Gyn Physician Goal (LTG) Pt will gait train at least 1000 feet in six minutes with LRAD to improve basic community ambulation by 2019. LTG Duration 4 weeks 1 Impairment LEF score reflects 45% impairment Nursing Home Goal (LTG) Pt will present with an improved LEF score to reflect no more than 30% impairment to allow improved ability to perform work tasks and to reflect decreased pain by 05/2020. LTG Duration 4 weeks Assessment Summary Assessment Pt arrives with c/o bruising and knot in medial left gastroc. She denies injury of any kind. Pt presents with dark purplish ecchymosis the size of a brenda in the area. She does have vericose veins in her legs. The location of the bruise is very odd with regard to no pressure, contact or exercise located at this spot with PT ( theraband was around ankles and knees and no manual work in this area nor other gastroc work). The surrounding area of the bruise has increased myofascial tension and tenderness to touch. It is not warm compared to the right. Due to the oddness of presentation, referred pt back to PCP. Initiate progress note next PT treatment. Physical Therapy Plan Frequency and Duration Frequency of Treatment 2x/Week Duration of Treatment 4 weeks Plan of Care Start Date 03/21/20 Plan of Care End Date 04/22/20 Therapeutic Interventions Therapeutic Interventions Balance Training,Gait Training ,Home Exercise Program,Manual Therapy,Neuromuscular Re- education,Patient/Caregiver Education,Self-Care/Home Management,Sensory Integration ,Soft Tissue Mobilization, Taping,Therapeutic Activities, Therapeutic Exercises Modalities Cold Pack/Ice Massage,Electric Stimulation,Hot Packs, Ultrasound Other Referrals/Consults Referrals/Consults Recommended Possible counseling referral d /t many life stressors with work, legal situation and chronic pain Next Visit Focus/Plan Next Note Type Progress Note Next Visit Plan Re-check 6MWT, consider sit to stands, progress stretches and strengthening
--- NOTE | 2020-04-18 11:39 | PT.OTN ---
Current Diagnoses Pain in right knee (04/18/20) Physical Therapy Treatment Note PT-OP-A Visit Information Start: 02/27/20 07:21 Freq: Status: Active Protocol: Document 04/18/20 08:16 MB (Rec: 04/18/20 09:01 MB [id number]) Out-Patient Physical Therapy Visit Information Visit Information Visit Type Progress Note Visit Start Time 08:16 Visit Stop Time 09:00 Total Visit Minutes 44 Visit Number 9 PT-OP-B Current Condition Start: 02/27/20 07:21 Freq: Status: Active Protocol: Document 03/21/20 13:30 MB (Rec: 03/21/20 14:01 MB [id number]) Current Condition History of Current Condition Onset Date 09/25/2018 Current Complaints Constant pain and swelling and pain right knee History of Current Condition Pt underwent right knee arthroscopic surgery 2019. Dr. Rollins did the surgery. She started PT and then reported she wanted further work-up from a second provider opinion. PT was then stopped. She gained a little weight and she has changed her diet and got a total gym. She went back to work part-time at [employer] January 2020. February 05 was her last day of work because her right knee swelled up again. 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 She states that Dr. Rollins wants her to do a month of PT as well as get acupuncture. She is looking for a place to get acupuncture . Pt has to walk with cane in her left hand. She is doing a detox bath. She is frustrated with the pain and inability to work. Her mom has to have back surgery. She has been living with pt and family. Pt feels like she might need a TKR. She is tired of situation . Pt reports 6/10 constant right knee pain localized to anterior and posterior knee. Flexoril is helping her sleep. Icing helps her knee. She is using TENS on her right knee. Her machine is 15 years old and she asks about getting another one through this clinic. PMH: powdered latex, degenerative arthritis in her back, bruises easily, fall in [facility] [employer] last year when she injured her leg--she slipped on water, gastric bypass surgery, pt is taking Tylenol everyday Prior Treatments and Tests MRI 03/08/2020: small joint effusion, sprain of the medial patellofemoral ligament without definite complete rupture, large Burkett's cyst, mild patellar tendinopathy with adjacent fluid and edema, mild joint degeneration, most pronounced in the patellofemoral compartment. PT-OP-C Subjective Start: 02/27/20 07:21 Freq: Status: Active Protocol: Document 04/18/20 08:16 MB (Rec: 04/18/20 09:01 MB [id number]) OP-PT Subjective Patient Comments Patient Comments It's feeling better. Pt states that the bruised area on her left medial calf is feeling better. It con't to be purplish in color and has a lightened, flesh-toned area in the middle. She has not yet gotten in to see doctor. [place] PT-OP-D Balance Start: 02/27/20 07:21 Freq: Status: Active Protocol: Document 03/21/20 13:30 MB (Rec: 03/21/20 16:15 MB [id number]) OP-PT Balance Assessment Sitting Balance Static Sitting Balance Ability Good Dynamic Sitting Balance Ability Fair Sitting Balance Comments UE support for scooting EOB Standing Balance Static Standing Balance Ability Fair Dynamic Standing Balance Ability Fair Device Used SPC left hand Standing Balance Comments Pt decreases WB through RLE Dillon Fall Scale Copyright Permission PT-OP-G Mobility & Gait Start: 02/27/20 07:21 Freq: Status: Active Protocol: Document 03/21/20 13:30 MB (Rec: 03/21/20 16:15 MB [id number]) OP Mobility Evaluation Bed Mobility Rolling I Supine to and from Sit I Transfers Sit to Stand UE support OP Gait Assessment Gait Gait Assistance Required: Independent Distance (Feet) 70 Assistive Devices Assistive Device Straight Cane Gait Deviations General Gait Pattern Antalgic,Decreased Stride Length,Decreased Feet Clearance,Flexed Trunk Factors Limiting Gait Function Factors Limiting Gait Function Decreased Activity Tolerance, Decreased Strength,Limited Range of Motion,Pain,Poor Balance Comments Gait Comments Pt's SPC is tall and PT lowers it to the correct height PT-OP-J Posture/Palpation/Skin Start: 02/27/20 07:21 Freq: Status: Active Protocol: Document 03/21/20 13:30 MB (Rec: 03/21/20 16:15 MB [id number]) Posture Evaluation Comments Posture Comments Forward head, rounded shoulders and pt limits standing time and WB on right LE, flexed posture at hips and right knee, increased globalized soft tissue PT-OP-K Range of Motion Start: 02/27/20 07:21 Freq: Status: Active Protocol: Document 03/21/20 13:30 MB (Rec: 03/21/20 16:15 MB [id number]) Knee Goniometric Range of Motion Knee Left knee Knee ROM WFL No Patient Position Supine Flexion Active (degrees) 0 Extension Active (degrees) 100 R knee Knee ROM WFL No Patient Position Supine Flexion Active (degrees) 36 Extension Active (degrees) 11 PT-OP-M Strength Start: 02/27/20 07:21 Freq: Status: Active Protocol: Document 03/21/20 13:30 MB (Rec: 03/21/20 16:15 MB [id number]) Hip Strength Hip Manual Muscle Testing Right Comments Deferred d/t pt states she is worried about PT testing her right leg Left Flexion (L2) 4 Good Abduction 4 Good Knee Strength Knee Manual Muscle Testing Right Comments Deferred d/t pt states she is worried about PT testing her right leg Left Flexion (S2) 4 Good Extension (L3) 4 Good Ankle/Foot Strength Ankle and Foot Manual Muscle Testing Right Dorsiflexion (L4) 4 Good Left Dorsiflexion (L4) 5 Normal Toe Strength Toe Manual Muscle Testing Left Great Toe Extension 4 Good Right Great Toe Extension 4 Good PT-OP-Q Treatments Start: 02/27/20 07:21 Freq: Status: Active Protocol: Document 04/18/20 08:16 MB (Rec: 04/18/20 11:26 MB [id number]) Cardio Equipment Recumbent Elliptical (Biodex) Duration (Minutes) 10 Resistance 2 Therapeutic Exercises Supine Exercises heel slides Side right Comments 5 reps slowly ankle pumps Side bilateral Comments 5 reps throughout rests during treatment Sitting Exercises Sit to stand without UE support Comments 6 reps in 30 sec today Gait Training Gait Activity Other gait during treatment Comments Pt is I with gait with cane in left hand and her gait is less antaxic and has better luciano for short bouts 6MWT Comments 829 feet with cane in left hand. See comments under goals today PT-OP-R Modalities Start: 09/22/20 07:21 Freq: Status: Active Protocol: Document 04/02/20 13:51 SP (Rec: 04/02/20 14:33 SP [id number]) Ultrasound Therapy Treatment R knee Treatment Duration (minutes) 8 Patient Position Supine Frequency Setting (mHz) 1 Mode Setting Pulsed Duty Cycle 50% Intensity Setting (w/cm2) 1.0 Comments inferior/lateral patella of R knee PT-OP-T Assessment and Plan Start: 02/27/20 07:21 Freq: Status: Active Protocol: Document 04/18/20 08:16 MB (Rec: 04/18/20 09:01 MB [id number]) Physical Therapy Assessment Rehab Potential Rehabilitation Potential Fair Evaluation Complexity Number of Personal Factors/Comorbidities 1-2 Number of Body Systems Impaired 3 Clinical Presentation at Evaluation Evolving Impairments Impairments Activity Tolerance,Balance, Coordination,Functional Activities,Functional Mobility ,Gait,Pain,Posture,ROM, Sensation,Soft Tissue Mobility ,Strength Goals 9 Stratigraphy Teacher Goal (LTG) Pt will present with B hip flexion and abduction strength to 5/5 and B knee flexion and extension strength to at least 4/5 to improve function and gait by 06/05/2020. 04/18/2020: Pt presents with 4 /5 B hip flexion and abduction strength and does not tolerate MMT B knees today. Popping in both knees with abduction MMT 8 Stratigraphy Teacher Goal (LTG) Pt will perform 15 reps sit to stands without UE assist in 30 sec to improve functional strength by 06/05/2020. 04/18/2020: Pt performs 6 reps sit to stand 4 Stratigraphy Teacher Goal (LTG) Pt will present with improved active right knee ROM to 5-117 deg to improve functional transfers and gait by 2019. 04/18/2020: Pt presents with AROM left knee 4-117 deg and right knee 6-105 deg. LTG Duration 6 weeks 3 Stratigraphy Teacher Goal (LTG) Pt will perform progressive HEP with I to improve ROM, strength, gait and balance by 06/05/2020. 04/18/2020: Pt is performing exercises except for new hip abduction and ankle eversion exercises with theraband d/t she correlates this with her medial left calf bruise despite the band not near this area and the exercises not working the PFs. LTG Duration 6 weeks 2 Impairment Decreased gait Stratigraphy Teacher Goal (LTG) Pt will gait train at least 1000 feet in six minutes with LRAD to improve basic community ambulation by 2019. 04/18/2020: Pt gait trains 829 feet in 6 minutes with SPC in left hand. Pt reports 5/10 right knee pain. LTG Duration 6 weeks 1 Impairment LEF score reflects 45% impairment Stratigraphy Teacher Goal (LTG) Pt will present with an improved LEF score to reflect no more than 30% impairment to allow improved ability to perform work tasks and to reflect decreased pain by . 04/18/2020: LEF score reflects reports of 53.75% impairment, which is a worse score than assessment date. Pt states that she occ has been using ele[employer]flat scooter when shopping d/t fear of falling on water ( this is despite her walking well for 6MWT today) LTG Duration 6 weeks Progress Towards Goals Progress Towards Goals Slow Progress due to Activity Tolerance Assessment Summary Assessment Pt has made progress towards ROM and HEP goals since starting PT. She is able to perform sit to stands and hip MMT in supine. She con't with reports of 5/10 right knee pain with gait with cane for 6MWT today despite her gait not being antalgic. Similarly, her reports on her LEF scale reflect worse functioning per subjective report despite improved range of motion and gait. Once again, pt has a history of reports of high complaints of pain s/p right arthroscopic knee surgery and PT was stopped previously as a result. She has not yet started acupuncture. Since pt has been performing better with functional testing, will con't PT 1x/wk to con't to advance strengthening, gait and balance. Strange occurence of left medial calf bruising has made pt reluctant to perform theraband exercises despite the strengthening and band not near that area of her leg and not working that muscle group. Pt to follow-up with PCP about the bruise. She does have what appear to be superficial veins either spider or varicose. Con't to recommend counseling consult regarding prolonged pain and self-limiting behaviors, out of work, her pending legal processes with regard to her right knee injury and pain. Physical Therapy Plan Frequency and Duration Frequency of Treatment 1x/Week Duration of Treatment 6 weeks Plan of Care Start Date 04/18/20 Plan of Care End Date 06/05/20 Therapeutic Interventions Therapeutic Interventions Balance Training,Coordination Training,Gait Training,Home Exercise Program,Joint Mobilizations,Manual Therapy, Neuromuscular Re-education, Patient/Caregiver Education, Self-Care/Home Management, Sensory Integration,Soft Tissue Mobilization,Taping, Therapeutic Activities, Therapeutic Exercises Modalities Electric Stimulation,Hot Packs ,Infrared Therapy,Ultrasound Other Referrals/Consults Referrals/Consults Recommended See assessment comments Next Visit Focus/Plan Next Note Type Treatment Note Next Visit Plan Progress balance and strengthening exercises
--- NOTE | 2020-04-18 11:40 | PT.OPPOC ---
Physical, Occupational & Speech Therapy At [facility] Current Diagnoses Pain in right knee (04/18/20) Visit Care Team Role Provider Type Kerri De Los Santos MD Attending Provider Non-Staff Primary Care Provider Referring Provider Specialty: Family Practice Address: [address] [place] [address], [id number] Email: Plan Of Care PT-OP-T Assessment and Plan Start: 02/27/20 07:21 Freq: Status: Active Protocol: Document 04/18/20 08:16 MB (Rec: 04/18/20 09:01 MB [id number]) Physical Therapy Assessment Rehab Potential Rehabilitation Potential Fair Evaluation Complexity Number of Personal Factors/Comorbidities 1-2 Number of Body Systems Impaired 3 Clinical Presentation at Evaluation Evolving Impairments Impairments Activity Tolerance,Balance, Coordination,Functional Activities,Functional Mobility ,Gait,Pain,Posture,ROM, Sensation,Soft Tissue Mobility ,Strength Goals 9 Retirement Goal (LTG) Pt will present with B hip flexion and abduction strength to 5/5 and B knee flexion and extension strength to at least 4/5 to improve function and gait by 06/05/2020. 04/18/2020: Pt presents with 4 /5 B hip flexion and abduction strength and does not tolerate MMT B knees today. Popping in both knees with abduction MMT 8 Retirement Goal (LTG) Pt will perform 15 reps sit to stands without UE assist in 30 sec to improve functional strength by 06/05/2020. 04/18/2020: Pt performs 6 reps sit to stand 4 Snow Fence Erector Goal (LTG) Pt will present with improved active right knee ROM to 5-117 deg to improve functional transfers and gait by 2019. 04/18/2020: Pt presents with AROM left knee 4-117 deg and right knee 6-105 deg. LTG Duration 6 weeks 3 Retirement Goal (LTG) Pt will perform progressive HEP with I to improve ROM, strength, gait and balance by 06/05/2020. 04/18/2020: Pt is performing exercises except for new hip abduction and ankle eversion exercises with theraband d/t she correlates this with her medial left calf bruise despite the band not near this area and the exercises not working the PFs. LTG Duration 6 weeks 2 Impairment Decreased gait Retirement Goal (LTG) Pt will gait train at least 1000 feet in six minutes with LRAD to improve basic community ambulation by 2019. 04/18/2020: Pt gait trains 829 feet in 6 minutes with SPC in left hand. Pt reports 5/10 right knee pain. LTG Duration 6 weeks 1 Impairment LEF score reflects 45% impairment Snow Fence Erector Goal (LTG) Pt will present with an improved LEF score to reflect no more than 30% impairment to allow improved ability to perform work tasks and to reflect decreased pain by . 04/18/2020: LEF score reflects reports of 53.75% impairment, which is a worse score than assessment date. Pt states that she occ has been using [employer] scooter when shopping d/t fear of falling on water ( this is despite her walking well for 6MWT today) LTG Duration 6 weeks Progress Towards Goals Progress Towards Goals Slow Progress due to Activity Tolerance Assessment Summary Assessment Pt has made progress towards ROM and HEP goals since starting PT. She is able to perform sit to stands and hip MMT in supine. She con't with reports of 5/10 right knee pain with gait with cane for 6MWT today despite her gait not being antalgic. Similarly, her reports on her LEF scale reflect worse functioning per subjective report despite improved range of motion and gait. Once again, pt has a history of reports of high complaints of pain s/p right arthroscopic knee surgery and PT was stopped previously as a result. She has not yet started acupuncture. Since pt has been performing better with functional testing, will con't PT 1x/wk to con't to advance strengthening, gait and balance. Strange occurence of left medial calf bruising has made pt reluctant to perform theraband exercises despite the strengthening and band not near that area of her leg and not working that muscle group. Pt to follow-up with PCP about the bruise. She does have what appear to be superficial veins either spider or varicose. Con't to recommend counseling consult regarding prolonged pain and self-limiting behaviors, out of work, her pending legal processes with regard to her right knee injury and pain. Physical Therapy Plan Frequency and Duration Frequency of Treatment 1x/Week Duration of Treatment 6 weeks Plan of Care Start Date 04/18/20 Plan of Care End Date 12/30/20 Therapeutic Interventions Therapeutic Interventions Balance Training,Coordination Training,Gait Training,Home Exercise Program,Joint Mobilizations,Manual Therapy, Neuromuscular Re-education, Patient/Caregiver Education, Self-Care/Home Management, Sensory Integration,Soft Tissue Mobilization,Taping, Therapeutic Activities, Therapeutic Exercises Modalities Electric Stimulation,Hot Packs ,Infrared Therapy,Ultrasound Other Referrals/Consults Referrals/Consults Recommended See assessment comments Next Visit Focus/Plan Next Note Type Treatment Note Next Visit Plan Progress balance and strengthening exercises Plan of Care Dates Plan of Care Start Date 04/18/20 Plan of Care End Date 06/05/20 Electronically Signed by: Dixie Fam, PT 04/18/20 4027 Please Sign and Return: I have reviewed this Plan of Care and certify that the skilled therapy services above are required to meet the patient?s needs. Physician Signature Date Printed Name and Credentials Clinical Instructor Signature Printed Name and Credentials
--- NOTE | 2020-05-07 09:49 | PT.OTN ---
Current Diagnoses Pain in right knee (05/07/20) Physical Therapy Treatment Note PT-OP-A Visit Information Start: 02/27/20 07:21 Freq: Status: Active Protocol: Document 05/07/20 09:06 MB (Rec: 05/07/20 09:48 MB [id number]) Out-Patient Physical Therapy Visit Information Visit Information Visit Type Treatment Note Visit Start Time 09:06 Visit Stop Time 09:45 Total Visit Minutes 39 Visit Number 10 PT-OP-B Current Condition Start: 02/27/20 07:21 Freq: Status: Active Protocol: Document 03/21/20 13:30 MB (Rec: 03/21/20 14:01 MB [id number]) Current Condition History of Current Condition Onset Date 09/25/2018 Current Complaints Constant pain and swelling and pain right knee History of Current Condition Pt underwent right knee arthroscopic surgery 2019. Dr. Rollins did the surgery. She started PT and then reported she wanted further work-up from a second provider opinion. PT was then stopped. She gained a little weight and she has changed her diet and got a total gym. She went back to work part-time at [employer] January 2020. February 05 was her last day of work because her right knee swelled up again. She filed a claim with a manager park for [employer]. She states that Dr. Rollins wants her to do a month of PT as well as get acupuncture. She is looking for a place to get acupuncture . Pt has to walk with cane in her left hand. She is doing a detox bath. She is frustrated with the pain and inability to work. Her mom has to have back surgery. She has been living with pt and family. Pt feels like she might need a TKR. She is tired of situation . Pt reports 6/10 constant right knee pain localized to anterior and posterior knee. Flexoril is helping her sleep. Icing helps her knee. She is using TENS on her right knee. Her machine is 15 years old and she asks about getting another one through this clinic. PMH: powdered latex, degenerative arthritis in her back, bruises easily, fall in [employer] [facility] last year when she injured her leg--she slipped on water, gastric bypass surgery, pt is taking Tylenol everyday Prior Treatments and Tests MRI 03/08/2020: small joint effusion, sprain of the medial patellofemoral ligament without definite complete rupture, large Burkett's cyst, mild patellar tendinopathy with adjacent fluid and edema, mild joint degeneration, most pronounced in the patellofemoral compartment. PT-OP-C Subjective Start: 02/27/20 07:21 Freq: Status: Active Protocol: Document 05/07/20 09:06 MB (Rec: 05/07/20 09:48 MB [id number]) OP-PT Subjective Patient Comments Patient Comments It's helping. Pt states that PT is helping. I had to miss PT because my daughter was sick. Pt states that her mother has back surgery next week at this facility. PT-OP-D Balance Start: 02/27/20 07:21 Freq: Status: Active Protocol: Document 03/21/20 13:30 MB (Rec: 03/21/20 16:15 MB [id number]) OP-PT Balance Assessment Sitting Balance Static Sitting Balance Ability Good Dynamic Sitting Balance Ability Fair Sitting Balance Comments UE support for scooting EOB Standing Balance Static Standing Balance Ability Fair Dynamic Standing Balance Ability Fair Device Used SPC left hand Standing Balance Comments Pt decreases WB through RLE Dillon Fall Scale Copyright Permission PT-OP-G Mobility & Gait Start: 02/27/20 07:21 Freq: Status: Active Protocol: Document 03/21/20 13:30 MB (Rec: 03/21/20 16:15 MB [id number]) OP Mobility Evaluation Bed Mobility Rolling I Supine to and from Sit I Transfers Sit to Stand UE support OP Gait Assessment Gait Gait Assistance Required: Independent Distance (Feet) 70 Assistive Devices Assistive Device Straight Cane Gait Deviations General Gait Pattern Antalgic,Decreased Stride Length,Decreased Feet Clearance,Flexed Trunk Factors Limiting Gait Function Factors Limiting Gait Function Decreased Activity Tolerance, Decreased Strength,Limited Range of Motion,Pain,Poor Balance Comments Gait Comments Pt's SPC is tall and PT lowers it to the correct height PT-OP-J Posture/Palpation/Skin Start: 02/27/20 07:21 Freq: Status: Active Protocol: Document 03/21/20 13:30 MB (Rec: 03/21/20 16:15 MB [id number]) Posture Evaluation Comments Posture Comments Forward head, rounded shoulders and pt limits standing time and WB on right LE, flexed posture at hips and right knee, increased globalized soft tissue PT-OP-K Range of Motion Start: 02/27/20 07:21 Freq: Status: Active Protocol: Document 03/21/20 13:30 MB (Rec: 03/21/20 16:15 MB [id number]) Knee Goniometric Range of Motion Knee Left knee Knee ROM WFL No Patient Position Supine Flexion Active (degrees) 0 Extension Active (degrees) 100 R knee Knee ROM WFL No Patient Position Supine Flexion Active (degrees) 36 Extension Active (degrees) 11 PT-OP-M Strength Start: 02/27/20 07:21 Freq: Status: Active Protocol: Document 03/21/20 13:30 MB (Rec: 03/21/20 16:15 MB [id number]) Hip Strength Hip Manual Muscle Testing Right Comments Deferred d/t pt states she is worried about PT testing her right leg Left Flexion (L2) 4 Good Abduction 4 Good Knee Strength Knee Manual Muscle Testing Right Comments Deferred d/t pt states she is worried about PT testing her right leg Left Flexion (S2) 4 Good Extension (L3) 4 Good Ankle/Foot Strength Ankle and Foot Manual Muscle Testing Right Dorsiflexion (L4) 4 Good Left Dorsiflexion (L4) 5 Normal Toe Strength Toe Manual Muscle Testing Left Great Toe Extension 4 Good Right Great Toe Extension 4 Good PT-OP-Q Treatments Start: 02/27/20 07:21 Freq: Status: Active Protocol: Document 05/07/20 09:06 MB (Rec: 05/07/20 09:48 MB [id number]) Cardio Equipment Recumbent Elliptical (Biodex) Duration (Minutes) 10 Resistance 2 Therapeutic Exercises Supine Exercises straight leg raise Side right Comments 10 reps, cues to slow down Sidelying Exercises Hip abduction Side bilateral Comments 5 reps, pt reports fatigue with right side Standing Exercises TKE Side right Resistance Level 3 band Comments 10 reps, very easy for pt but she wants to con't at home, level 3 is harder Heel raises Side bilateral Comments 10 reps slowly counting 1,2,3, [address] up and 5,6,7,[address] down Manual Therapy Treatment Other Other Manual Treatments STM right quads and gentle right patellar mobs, gentle lavage right calf to posterior knee PT-OP-R Modalities Start: 02/27/20 07:21 Freq: Status: Active Protocol: Document 04/02/20 13:51 SP (Rec: 04/02/20 14:33 SP [id number]) Ultrasound Therapy Treatment R knee Treatment Duration (minutes) 8 Patient Position Supine Frequency Setting (mHz) 1 Mode Setting Pulsed Duty Cycle 50% Intensity Setting (w/cm2) 1.0 Comments inferior/lateral patella of R knee PT-OP-T Assessment and Plan Start: 02/27/20 07:21 Freq: Status: Active Protocol: Document 05/07/20 09:06 MB (Rec: 05/07/20 09:48 MB [id number]) Physical Therapy Assessment Rehab Potential Rehabilitation Potential Fair Evaluation Complexity Number of Personal Factors/Comorbidities 1-2 Number of Body Systems Impaired 3 Clinical Presentation at Evaluation Evolving Impairments Impairments Activity Tolerance,Balance, Coordination,Functional Activities,Functional Mobility ,Gait,Pain,Posture,ROM, Sensation,Soft Tissue Mobility ,Strength Goals 9 Clinical Biostatistics Director Goal (LTG) Pt will present with B hip flexion and abduction strength to 5/5 and B knee flexion and extension strength to at least 4/5 to improve function and gait by 06/05/2020. 04/18/2020: Pt presents with 4 /5 B hip flexion and abduction strength and does not tolerate MMT B knees today. Popping in both knees with abduction MMT 8 Clinical Biostatistics Director Goal (LTG) Pt will perform 15 reps sit to stands without UE assist in 30 sec to improve functional strength by 06/05/2020. 04/18/2020: Pt performs 6 reps sit to stand 4 Clinical Biostatistics Director Goal (LTG) Pt will present with improved active right knee ROM to 5-117 deg to improve functional transfers and gait by 2019. 04/18/2020: Pt presents with AROM left knee 4-117 deg and right knee 6-105 deg. LTG Duration 6 weeks 3 Clinical Biostatistics Director Goal (LTG) Pt will perform progressive HEP with I to improve ROM, strength, gait and balance by 06/05/2020. 04/18/2020: Pt is performing exercises except for new hip abduction and ankle eversion exercises with theraband d/t she correlates this with her medial left calf bruise despite the band not near this area and the exercises not working the PFs. LTG Duration 6 weeks 2 Impairment Decreased gait Clinical Biostatistics Director Goal (LTG) Pt will gait train at least 1000 feet in six minutes with LRAD to improve basic community ambulation by 2019. 04/18/2020: Pt gait trains 829 feet in 6 minutes with SPC in left hand. Pt reports 5/10 right knee pain. LTG Duration 6 weeks 1 Impairment LEF score reflects 45% impairment Clinical Biostatistics Director Goal (LTG) Pt will present with an improved LEF score to reflect no more than 30% impairment to allow improved ability to perform work tasks and to reflect decreased pain by . 04/18/2020: LEF score reflects reports of 53.75% impairment, which is a worse score than assessment date. Pt states that she occ has been using [employer] scooter when shopping d/t fear of falling on water ( this is despite her walking well for 6MWT today) LTG Duration 6 weeks Assessment Summary Assessment There has been a 19 gap in treatments d/t pt needs. Reviewed exercises today and added standing exercises for home, handout provided. She is reluctant to use bands and may benefit from ankle weights . Physical Therapy Plan Frequency and Duration Frequency of Treatment 1x/Week Duration of Treatment 6 weeks Plan of Care Start Date 04/18/20 Plan of Care End Date 06/05/20 Therapeutic Interventions Therapeutic Interventions Balance Training,Coordination Training,Gait Training,Home Exercise Program,Joint Mobilizations,Manual Therapy, Neuromuscular Re-education, Patient/Caregiver Education, Self-Care/Home Management, Sensory Integration,Soft Tissue Mobilization,Taping, Therapeutic Activities, Therapeutic Exercises Modalities Electric Stimulation,Hot Packs ,Infrared Therapy,Ultrasound Next Visit Focus/Plan Next Note Type Treatment Note Next Visit Plan Progress balance and strengthening--add 1 lb ankle weight to standing hip abduction, extension, heel raises and side lying abduction, SLR and HS Note: pt is worried about band exercises around ankles and hips d/t left aguiar bruise that PT feels is unrelated to PT and PT favors varicose vein issue
--- NOTE | 2020-05-14 09:10 | PT-OP ANOTE ---
Pt did not show for 9 am appt today, family in the hospital attending. [employer] left message with family member to call back if wants to reschedule to later am today with available appts at this time.
--- NOTE | 2020-05-14 10:31 | PT.OTN ---
Current Diagnoses Pain in right knee (05/14/20) Physical Therapy Treatment Note PT-OP-A Visit Information Start: 02/27/20 07:21 Freq: Status: Active Protocol: Document 05/14/20 09:49 SP (Rec: 05/14/20 10:59 SP [id number]) Out-Patient Physical Therapy Visit Information Visit Information Visit Type Treatment Note Visit Start Time 09:49 Visit Stop Time 10:31 Total Visit Minutes 42 Visit Number 11 Number of SHOT FIREMAN Visits 1 PT-OP-B Current Condition Start: 02/27/20 07:21 Freq: Status: Active Protocol: Document 03/21/20 13:30 MB (Rec: 03/21/20 14:01 MB [id number]) Current Condition History of Current Condition Onset Date 09/25/2018 Current Complaints Constant pain and swelling and pain right knee History of Current Condition Pt underwent right knee arthroscopic surgery 2019. Dr. Rollins did the surgery. She started PT and then reported she wanted further work-up from a second provider opinion. PT was then stopped. She gained a little weight and she has changed her diet and got a total gym. She went back to work part-time at [employer] January 2020. February 05 was her last day of work because her right knee swelled up again. She filed a claim with a road packer operator for L&I. She states that Dr. Rollins wants her to do a month of PT as well as get acupuncture. She is looking for a place to get acupuncture . Pt has to walk with cane in her left hand. She is doing a detox bath. She is frustrated with the pain and inability to work. Her mom has to have back surgery. She has been living with pt and family. Pt feels like she might need a TKR. She is tired of situation . Pt reports 6/10 constant right knee pain localized to anterior and posterior knee. Flexoril is helping her sleep. Icing helps her knee. She is using TENS on her right knee. Her machine is 15 years old and she asks about getting another one through this clinic. PMH: powdered latex, degenerative arthritis in her back, bruises easily, fall in [facility] last year when she injured her leg--she slipped on water, gastric bypass surgery, pt is taking Tylenol everyday Prior Treatments and Tests MRI 03/08/2020: small joint effusion, sprain of the medial patellofemoral ligament without definite complete rupture, large Burkett's cyst, mild patellar tendinopathy with adjacent fluid and edema, mild joint degeneration, most pronounced in the patellofemoral compartment. PT-OP-C Subjective Start: 02/27/20 07:21 Freq: Status: Active Protocol: Document 05/14/20 09:49 SP (Rec: 05/14/20 10:59 SP [id number]) OP-PT Subjective Patient Comments Patient Comments Pt reported her L knee pain worse 09/14 today, has been helping her mom prepare for back surgery, just had yesterday. And having stress due to found out her aunt was admittend to the hospital in the past 2 days and not sleeping as well because of it . PT-OP-D Balance Start: 02/27/20 07:21 Freq: Status: Active Protocol: Document 03/21/20 13:30 MB (Rec: 03/21/20 16:15 MB [id number]) OP-PT Balance Assessment Sitting Balance Static Sitting Balance Ability Good Dynamic Sitting Balance Ability Fair Sitting Balance Comments UE support for scooting EOB Standing Balance Static Standing Balance Ability Fair Dynamic Standing Balance Ability Fair Device Used SPC left hand Standing Balance Comments Pt decreases WB through RLE Dillon Fall Scale Copyright Permission PT-OP-G Mobility & Gait Start: 02/27/20 07:21 Freq: Status: Active Protocol: Document 03/21/20 13:30 MB (Rec: 03/21/20 16:15 MB [id number]) OP Mobility Evaluation Bed Mobility Rolling I Supine to and from Sit I Transfers Sit to Stand UE support OP Gait Assessment Gait Gait Assistance Required: Independent Distance (Feet) 70 Assistive Devices Assistive Device Straight Cane Gait Deviations General Gait Pattern Antalgic,Decreased Stride Length,Decreased Feet Clearance,Flexed Trunk Factors Limiting Gait Function Factors Limiting Gait Function Decreased Activity Tolerance, Decreased Strength,Limited Range of Motion,Pain,Poor Balance Comments Gait Comments Pt's SPC is tall and PT lowers it to the correct height PT-OP-J Posture/Palpation/Skin Start: 02/27/20 07:21 Freq: Status: Active Protocol: Document 03/21/20 13:30 MB (Rec: 03/21/20 16:15 MB [id number]) Posture Evaluation Comments Posture Comments Forward head, rounded shoulders and pt limits standing time and WB on right LE, flexed posture at hips and right knee, increased globalized soft tissue PT-OP-K Range of Motion Start: 02/27/20 07:21 Freq: Status: Active Protocol: Document 03/21/20 13:30 MB (Rec: 03/21/20 16:15 MB [id number]) Knee Goniometric Range of Motion Knee Left knee Knee ROM WFL No Patient Position Supine Flexion Active (degrees) 0 Extension Active (degrees) 100 R knee Knee ROM WFL No Patient Position Supine Flexion Active (degrees) 36 Extension Active (degrees) 11 PT-OP-M Strength Start: 02/27/20 07:21 Freq: Status: Active Protocol: Document 03/21/20 13:30 MB (Rec: 03/21/20 16:15 MB [id number]) Hip Strength Hip Manual Muscle Testing Right Comments Deferred d/t pt states she is worried about PT testing her right leg Left Flexion (L2) 4 Good Abduction 4 Good Knee Strength Knee Manual Muscle Testing Right Comments Deferred d/t pt states she is worried about PT testing her right leg Left Flexion (S2) 4 Good Extension (L3) 4 Good Ankle/Foot Strength Ankle and Foot Manual Muscle Testing Right Dorsiflexion (L4) 4 Good Left Dorsiflexion (L4) 5 Normal Toe Strength Toe Manual Muscle Testing Left Great Toe Extension 4 Good Right Great Toe Extension 4 Good PT-OP-Q Treatments Start: 02/27/20 07:21 Freq: Status: Active Protocol: Document 05/14/20 09:49 SP (Rec: 05/14/20 10:59 SP [id number]) Cardio Equipment Recumbent Elliptical (Biodex) Duration (Minutes) 6 Resistance 2 Seat Position 8 seen Other 717 SPM Therapeutic Exercises Standing Exercises lateral side stepping Standing Exercise Name difficulty to R due to decreased L knee stabilization during RLE adv Side bilateral Resistance AROM Equipment Used rail contact- Min A Reps/Minutes 10 ft 1 lap Comments cued quad/hs/ glut facilitation during RLE repositioning & upright posture hip ext Standing Exercise Name add HEP Side right Equipment Used #2 Reps/Minutes 2x10 Comments cued slow w/ PPT LS stab TKE Side right Resistance Level 3 band (non latex/powder free) Reps/Minutes 2x10 Comments good performance pacing and mus control Heel raises Side bilateral Equipment Used at rail contact as needed Reps/Minutes 2x10 Comments 10 reps slowly counting 1,2,3, [address] up and 5,6,7,[address] hip abd Standing Exercise Name add HEP Side right Resistance #2 Leg wt Reps/Minutes 2x10 Other Exercises Rolling pin massage quads Other Exercise Name discussed but not performed dong well with at ho me Comments Right quads sitting helpful at home Gait Training Gait Activity stair mgt Comments ascend/descend 4 stairs x2 sets using SPC only (to assimulate 3 single steps at home enterance) in LUE step to gait leading LE up/ RLE down S, no LOB with correct stable patterning. Other gait during treatment Description forward, backward walking no AD- antalgic gait Device Used no AD, mirror for self feedback Level of Assistance SBA- S Surface level Distance/Duration 20 ft x2 laps each direction Treatment Focus L knee stability Comments improved with performance post cuing quad/HS/posture awareness and mirror for self feedback. PT-OP-R Modalities Start: 02/27/20 07:21 Freq: Status: Active Protocol: Document 04/02/20 13:51 SP (Rec: 04/02/20 14:33 SP [id number]) Ultrasound Therapy Treatment R knee Treatment Duration (minutes) 8 Patient Position Supine Frequency Setting (mHz) 1 Mode Setting Pulsed Duty Cycle 50% Intensity Setting (w/cm2) 1.0 Comments inferior/lateral patella of R knee PT-OP-T Assessment and Plan Start: 02/27/20 07:21 Freq: Status: Active Protocol: Document 05/14/20 09:49 SP (Rec: 05/14/20 10:59 SP [id number]) Physical Therapy Assessment Goals 9 Translator Deaf Goal (LTG) Pt will present with B hip flexion and abduction strength to 5/5 and B knee flexion and extension strength to at least 4/5 to improve function and gait by 06/05/2020. 04/18/2020: Pt presents with 4 /5 B hip flexion and abduction strength and does not tolerate MMT B knees today. Popping in both knees with abduction MMT 8 Translator Deaf Goal (LTG) Pt will perform 15 reps sit to stands without UE assist in 30 sec to improve functional strength by 06/05/2020. 04/18/2020: Pt performs 6 reps sit to stand 4 Skilled Nursing Goal (LTG) Pt will present with improved active right knee ROM to 5-117 deg to improve functional transfers and gait by 2019. 04/18/2020: Pt presents with AROM left knee 4-117 deg and right knee 6-105 deg. LTG Duration 6 weeks 3 Translator Deaf Goal (LTG) Pt will perform progressive HEP with I to improve ROM, strength, gait and balance by 06/05/2020. 04/18/2020: Pt is performing exercises except for new hip abduction and ankle eversion exercises with theraband d/t she correlates this with her medial left calf bruise despite the band not near this area and the exercises not working the PFs. LTG Duration 6 weeks 2 Impairment Decreased gait Translator Deaf Goal (LTG) Pt will gait train at least 1000 feet in six minutes with LRAD to improve basic community ambulation by 2019. 04/18/2020: Pt gait trains 829 feet in 6 minutes with SPC in left hand. Pt reports 5/10 right knee pain. LTG Duration 6 weeks 1 Impairment LEF score reflects 45% impairment Translator Deaf Goal (LTG) Pt will present with an improved LEF score to reflect no more than 30% impairment to allow improved ability to perform work tasks and to reflect decreased pain by . 04/18/2020: LEF score reflects reports of 53.75% impairment, which is a worse score than assessment date. Pt states that she occ has been using [employer] scooter when shopping d/t fear of falling on water ( this is despite her walking well for 6MWT today) LTG Duration 6 weeks Assessment Summary Assessment Pt improved in stabilization of L knee during gait without AD in front of mirror short distance (reports performs at home), stair mgt w/ SPC, ther ex contact as needed. Pt reporte decreased in L knee pain, only achy end of tx. Physical Therapy Plan Frequency and Duration Frequency of Treatment 1x/Week Duration of Treatment 6 weeks Plan of Care Start Date 04/18/20 Plan of Care End Date 06/05/20 Therapeutic Interventions Therapeutic Interventions Balance Training,Coordination Training,Gait Training,Home Exercise Program,Joint Mobilizations,Manual Therapy, Neuromuscular Re-education, Patient/Caregiver Education, Self-Care/Home Management, Sensory Integration,Soft Tissue Mobilization,Taping, Therapeutic Activities, Therapeutic Exercises Modalities Electric Stimulation,Hot Packs ,Infrared Therapy,Ultrasound Next Visit Focus/Plan Next Note Type Treatment Note Next Visit Plan Progress note due 06/05/20. Assess response to last tx: standign HEP review and intiated gait w/out AD in mirror quality. Continue per PT POC: Progress balance and strengthening--add 1 lb ankle weight to standing hip abduction, extension, heel raises and side lying abduction, SLR and HS Note: pt is worried about band exercises around ankles and hips d/t left aguiar bruise that PT feels is unrelated to PT and PT favors varicose vein issue
--- NOTE | 2020-05-21 10:32 | PT.OTN ---
Current Diagnoses Pain in right knee (05/21/20) Physical Therapy Treatment Note PT-OP-A Visit Information Start: 02/27/20 07:21 Freq: Status: Active Protocol: Document 05/21/20 09:46 SP (Rec: 05/21/20 11:40 SP [id number]) Out-Patient Physical Therapy Visit Information Visit Information Visit Type Treatment Note Visit Note PN/ POC due by 06/05/20. Visit Start Time 09:46 Visit Stop Time 10:32 Total Visit Minutes 46 Visit Number 05/[address] REPORTER Visits 2 PT-OP-B Current Condition Start: 02/27/20 07:21 Freq: Status: Active Protocol: Document 03/21/20 13:30 MB (Rec: 03/21/20 14:01 MB [id number]) Current Condition History of Current Condition Onset Date 09/25/2018 Current Complaints Constant pain and swelling and pain right knee History of Current Condition Pt underwent right knee arthroscopic surgery 2019. Dr. Rollins did the surgery. She started PT and then reported she wanted further work-up from a second provider opinion. PT was then stopped. She gained a little weight and she has changed her diet and got a total gym. She went back to work part-time at [employer] January 2020. February 05 was her last day of work because her right knee swelled up again. She filed a claim with a fancy packer for L&I. She states that Dr. Rollins wants her to do a month of PT as well as get acupuncture. She is looking for a place to get acupuncture . Pt has to walk with cane in her left hand. She is doing a detox bath. She is frustrated with the pain and inability to work. Her mom has to have back surgery. She has been living with pt and family. Pt feels like she might need a TKR. She is tired of situation . Pt reports 6/10 constant right knee pain localized to anterior and posterior knee. Flexoril is helping her sleep. Icing helps her knee. She is using TENS on her right knee. Her machine is 15 years old and she asks about getting another one through this clinic. PMH: powdered latex, degenerative arthritis in her back, bruises easily, fall in [facility] [facility] last year when she injured her leg--she slipped on water, gastric bypass surgery, pt is taking Tylenol everyday Prior Treatments and Tests MRI 03/08/2020: small joint effusion, sprain of the medial patellofemoral ligament without definite complete rupture, large Burkett's cyst, mild patellar tendinopathy with adjacent fluid and edema, mild joint degeneration, most pronounced in the patellofemoral compartment. PT-OP-C Subjective Start: 02/27/20 07:21 Freq: Status: Active Protocol: Document 05/21/20 09:46 SP (Rec: 05/21/20 11:40 SP [id number]) OP-PT Subjective Patient Comments Patient Comments Pt reported LBP hurting 7/10 pain and affecting her R knee. She is utilizing CBD oil and epson salt bath last night to help give relief. Pt reported did have a partial hysterectomy about 2 yrs ago and doesn't want to have hormonal replacement. PT-OP-D Balance Start: 02/27/20 07:21 Freq: Status: Active Protocol: Document 03/21/20 13:30 MB (Rec: 03/21/20 16:15 MB [id number]) OP-PT Balance Assessment Sitting Balance Static Sitting Balance Ability Good Dynamic Sitting Balance Ability Fair Sitting Balance Comments UE support for scooting EOB Standing Balance Static Standing Balance Ability Fair Dynamic Standing Balance Ability Fair Device Used SPC left hand Standing Balance Comments Pt decreases WB through RLE Dillon Fall Scale Copyright Permission PT-OP-G Mobility & Gait Start: 02/27/20 07:21 Freq: Status: Active Protocol: Document 03/21/20 13:30 MB (Rec: 03/21/20 16:15 MB [id number]) OP Mobility Evaluation Bed Mobility Rolling I Supine to and from Sit I Transfers Sit to Stand UE support OP Gait Assessment Gait Gait Assistance Required: Independent Distance (Feet) 70 Assistive Devices Assistive Device Straight Cane Gait Deviations General Gait Pattern Antalgic,Decreased Stride Length,Decreased Feet Clearance,Flexed Trunk Factors Limiting Gait Function Factors Limiting Gait Function Decreased Activity Tolerance, Decreased Strength,Limited Range of Motion,Pain,Poor Balance Comments Gait Comments Pt's SPC is tall and PT lowers it to the correct height PT-OP-J Posture/Palpation/Skin Start: 02/27/20 07:21 Freq: Status: Active Protocol: Document 03/21/20 13:30 MB (Rec: 03/21/20 16:15 MB [id number]) Posture Evaluation Comments Posture Comments Forward head, rounded shoulders and pt limits standing time and WB on right LE, flexed posture at hips and right knee, increased globalized soft tissue PT-OP-K Range of Motion Start: 02/27/20 07:21 Freq: Status: Active Protocol: Document 03/21/20 13:30 MB (Rec: 03/21/20 16:15 MB [id number]) Knee Goniometric Range of Motion Knee Left knee Knee ROM WFL No Patient Position Supine Flexion Active (degrees) 0 Extension Active (degrees) 100 R knee Knee ROM WFL No Patient Position Supine Flexion Active (degrees) 36 Extension Active (degrees) 11 PT-OP-M Strength Start: 02/27/20 07:21 Freq: Status: Active Protocol: Document 03/21/20 13:30 MB (Rec: 03/21/20 16:15 MB [id number]) Hip Strength Hip Manual Muscle Testing Right Comments Deferred d/t pt states she is worried about PT testing her right leg Left Flexion (L2) 4 Good Abduction 4 Good Knee Strength Knee Manual Muscle Testing Right Comments Deferred d/t pt states she is worried about PT testing her right leg Left Flexion (S2) 4 Good Extension (L3) 4 Good Ankle/Foot Strength Ankle and Foot Manual Muscle Testing Right Dorsiflexion (L4) 4 Good Left Dorsiflexion (L4) 5 Normal Toe Strength Toe Manual Muscle Testing Left Great Toe Extension 4 Good Right Great Toe Extension 4 Good PT-OP-Q Treatments Start: 02/27/20 07:21 Freq: Status: Active Protocol: Document 05/21/20 09:46 SP (Rec: 05/21/20 11:40 SP [id number]) Cardio Equipment Recumbent Elliptical (Biodex) Duration (Minutes) 6 Resistance 2 Seat Position 8 seen Other 717 SPM Therapeutic Exercises Standing Exercises hs curls at doorjam Side bilateral Resistance AROM Equipment Used door frame Reps/Minutes x5 each Comments cued body and anterior thigh flush with doorframe to allow HS performance band walk Standing Exercise Name add HEP Resistance TB #1 Latex free Equipment Used at rail if needed Reps/Minutes 10 ft x2 laps Comments cued stable upper body, PPT w/ core facilitation, foot clearance hip ext Standing Exercise Name review HEP Side right Resistance #2 leg wt R, #4 LLE (TB #1 HEP latex free) Equipment Used rail contact Reps/Minutes 2x5 each LE Comments cued slow w/ PPT LS stab TKE Standing Exercise Name review HEP Side right Resistance Level 3 band (non latex/powder free) Reps/Minutes 2x10 Comments good performance pacing and mus control Heel raises Standing Exercise Name calf raises con/ecc off step Side bilateral Resistance #2 leg wt Equipment Used rail contact Reps/Minutes x10 Comments up 2 count, down 3 count hip abd Standing Exercise Name review HEP Side right Resistance #2 Leg wt (#4 LLE) ( TB #1 HEP ) Equipment Used rail contact Reps/Minutes 2x5 each LE Comments cued stable upper body, PPT w/ core facilitation PT-OP-R Modalities Start: 02/27/20 07:21 Freq: Status: Active Protocol: Document 04/02/20 13:51 SP (Rec: 04/02/20 14:33 SP [id number]) Ultrasound Therapy Treatment R knee Treatment Duration (minutes) 8 Patient Position Supine Frequency Setting (mHz) 1 Mode Setting Pulsed Duty Cycle 50% Intensity Setting (w/cm2) 1.0 Comments inferior/lateral patella of R knee PT-OP-T Assessment and Plan Start: 02/27/20 07:21 Freq: Status: Active Protocol: Document 05/21/20 09:46 SP (Rec: 05/21/20 11:40 SP [id number]) Physical Therapy Assessment Goals 9 Electronic Typesetting Machine Operator Goal (LTG) Pt will present with B hip flexion and abduction strength to 5/5 and B knee flexion and extension strength to at least 4/5 to improve function and gait by 06/05/2020. 04/18/2020: Pt presents with 4 /5 B hip flexion and abduction strength and does not tolerate MMT B knees today. Popping in both knees with abduction MMT 8 Detention Goal (LTG) Pt will perform 15 reps sit to stands without UE assist in 30 sec to improve functional strength by 06/05/2020. 04/18/2020: Pt performs 6 reps sit to stand 4 Electronic Typesetting Machine Operator Goal (LTG) Pt will present with improved active right knee ROM to 5-117 deg to improve functional transfers and gait by 2019. 04/18/2020: Pt presents with AROM left knee 4-117 deg and right knee 6-105 deg. LTG Duration 6 weeks 3 Electronic Typesetting Machine Operator Goal (LTG) Pt will perform progressive HEP with I to improve ROM, strength, gait and balance by 06/05/2020. 04/18/2020: Pt is performing exercises except for new hip abduction and ankle eversion exercises with theraband d/t she correlates this with her medial left calf bruise despite the band not near this area and the exercises not working the PFs. LTG Duration 6 weeks 2 Impairment Decreased gait Detention Goal (LTG) Pt will gait train at least 1000 feet in six minutes with LRAD to improve basic community ambulation by 2019. 04/18/2020: Pt gait trains 829 feet in 6 minutes with SPC in left hand. Pt reports 5/10 right knee pain. LTG Duration 6 weeks 1 Impairment LEF score reflects 45% impairment Detention Goal (LTG) Pt will present with an improved LEF score to reflect no more than 30% impairment to allow improved ability to perform work tasks and to reflect decreased pain by . 04/18/2020: LEF score reflects reports of 53.75% impairment, which is a worse score than assessment date. Pt states that she occ has been using [employer] scooter when shopping d/t fear of falling on water ( this is despite her walking well for 6MWT today) LTG Duration 6 weeks Assessment Summary Assessment Pt improved with standing activity today, decreased reps due to tolerance of WB on RLE during LLE performance and RLE tiring recovery needed. Pt reported decrease in pain to LB from 7/10 when arrived to 5 -6/10 end of tx. Pt required cuing for awareness of PPT and core facilitation during band walk and hip abd/ext to decreased LS recruitment. Physical Therapy Plan Frequency and Duration Frequency of Treatment 1x/Week Duration of Treatment 6 weeks Plan of Care Start Date 04/18/20 Plan of Care End Date 06/05/20 Therapeutic Interventions Therapeutic Interventions Balance Training,Coordination Training,Gait Training,Home Exercise Program,Joint Mobilizations,Manual Therapy, Neuromuscular Re-education, Patient/Caregiver Education, Self-Care/Home Management, Sensory Integration,Soft Tissue Mobilization,Taping, Therapeutic Activities, Therapeutic Exercises Modalities Electric Stimulation,Hot Packs ,Infrared Therapy,Ultrasound Next Visit Focus/Plan Next Note Type Treatment Note Next Visit Plan PN due by 06/05 20. Assess response to last tx: standing HEP review. Next tx give time for gait edurance and balance activities, eg. agustin stepping, laps in gym, assess use of shuttle recovery, recheck AROM. . Continue per PT POC: Progress balance and strengthening--add 1 lb ankle weight to side lying abduction , SLR and HS. Note: patient is causious about powder on latex TB so have given non latex bands for HEP and use in therapy.
--- NOTE | 2020-05-28 15:00 | PT.OTN ---
Current Diagnoses Pain in right knee (05/28/20) Physical Therapy Treatment Note PT-OP-A Visit Information Start: 02/27/20 07:21 Freq: Status: Active Protocol: Document 05/28/20 10:32 MB (Rec: 05/28/20 11:17 MB [id number]) Out-Patient Physical Therapy Visit Information Visit Information Visit Type Progress Note Visit Start Time 10:32 Visit Stop Time 11:15 Total Visit Minutes 43 Visit Number Number of LOAN OFFICER ASSISTANT Visits 0 PT-OP-B Current Condition Start: 02/27/20 07:21 Freq: Status: Active Protocol: Document 03/21/20 13:30 MB (Rec: 03/21/20 14:01 MB [id number]) Current Condition History of Current Condition Onset Date 09/25/2018 Current Complaints Constant pain and swelling and pain right knee History of Current Condition Pt underwent right knee arthroscopic surgery 2019. Dr. Rollins did the surgery. She started PT and then reported she wanted further work-up from a second provider opinion. PT was then stopped. She gained a little weight and she has changed her diet and got a total gym. She went back to work part-time at [employer] January 2020. February 05 was her last day of work because her right knee swelled up again. She filed a claim with a rd lab technician for [employer]. She states that Dr. Rollins wants her to do a month of PT as well as get acupuncture. She is looking for a place to get acupuncture . Pt has to walk with cane in her left hand. She is doing a detox bath. She is frustrated with the pain and inability to work. Her mom has to have back surgery. She has been living with pt and family. Pt feels like she might need a TKR. She is tired of situation . Pt reports 6/10 constant right knee pain localized to anterior and posterior knee. Flexoril is helping her sleep. Icing helps her knee. She is using TENS on her right knee. Her machine is 15 years old and she asks about getting another one through this clinic. PMH: powdered latex, degenerative arthritis in her back, bruises easily, fall in [employer] last year when she injured her leg--she slipped on water, gastric bypass surgery, pt is taking Tylenol everyday Prior Treatments and Tests MRI 03/08/2020: small joint effusion, sprain of the medial patellofemoral ligament without definite complete rupture, large Burkett's cyst, mild patellar tendinopathy with adjacent fluid and edema, mild joint degeneration, most pronounced in the patellofemoral compartment. PT-OP-C Subjective Start: 02/27/20 07:21 Freq: Status: Active Protocol: Document 05/28/20 10:32 MB (Rec: 05/28/20 11:17 MB [id number]) OP-PT Subjective Patient Comments Patient Comments When I walk without the cane at home, I feel the shifting in my right low back when I shift weight to the right. Pt states that the acupuncture was not approved by her insurance. PT-OP-D Balance Start: 02/27/20 07:21 Freq: Status: Active Protocol: Document 03/21/20 13:30 MB (Rec: 03/21/20 16:15 MB [id number]) OP-PT Balance Assessment Sitting Balance Static Sitting Balance Ability Good Dynamic Sitting Balance Ability Fair Sitting Balance Comments UE support for scooting EOB Standing Balance Static Standing Balance Ability Fair Dynamic Standing Balance Ability Fair Device Used SPC left hand Standing Balance Comments Pt decreases WB through RLE Dillon Fall Scale Copyright Permission PT-OP-G Mobility & Gait Start: 02/27/20 07:21 Freq: Status: Active Protocol: Document 03/21/20 13:30 MB (Rec: 03/21/20 16:15 MB [id number]) OP Mobility Evaluation Bed Mobility Rolling I Supine to and from Sit I Transfers Sit to Stand UE support OP Gait Assessment Gait Gait Assistance Required: Independent Distance (Feet) 70 Assistive Devices Assistive Device Straight Cane Gait Deviations General Gait Pattern Antalgic,Decreased Stride Length,Decreased Feet Clearance,Flexed Trunk Factors Limiting Gait Function Factors Limiting Gait Function Decreased Activity Tolerance, Decreased Strength,Limited Range of Motion,Pain,Poor Balance Comments Gait Comments Pt's SPC is tall and PT lowers it to the correct height PT-OP-J Posture/Palpation/Skin Start: 02/27/20 07:21 Freq: Status: Active Protocol: Document 03/21/20 13:30 MB (Rec: 03/21/20 16:15 MB [id number]) Posture Evaluation Comments Posture Comments Forward head, rounded shoulders and pt limits standing time and WB on right LE, flexed posture at hips and right knee, increased globalized soft tissue PT-OP-K Range of Motion Start: 02/27/20 07:21 Freq: Status: Active Protocol: Document 03/21/20 13:30 MB (Rec: 03/21/20 16:15 MB [id number]) Knee Goniometric Range of Motion Knee Left knee Knee ROM WFL No Patient Position Supine Flexion Active (degrees) 0 Extension Active (degrees) 100 R knee Knee ROM WFL No Patient Position Supine Flexion Active (degrees) 36 Extension Active (degrees) 11 PT-OP-M Strength Start: 02/27/20 07:21 Freq: Status: Active Protocol: Document 03/21/20 13:30 MB (Rec: 03/21/20 16:15 MB [id number]) Hip Strength Hip Manual Muscle Testing Right Comments Deferred d/t pt states she is worried about PT testing her right leg Left Flexion (L2) 4 Good Abduction 4 Good Knee Strength Knee Manual Muscle Testing Right Comments Deferred d/t pt states she is worried about PT testing her right leg Left Flexion (S2) 4 Good Extension (L3) 4 Good Ankle/Foot Strength Ankle and Foot Manual Muscle Testing Right Dorsiflexion (L4) 4 Good Left Dorsiflexion (L4) 5 Normal Toe Strength Toe Manual Muscle Testing Left Great Toe Extension 4 Good Right Great Toe Extension 4 Good PT-OP-Q Treatments Start: 02/27/20 07:21 Freq: Status: Active Protocol: Document 05/28/20 10:32 MB (Rec: 05/28/20 11:17 MB [id number]) Cardio Equipment Recumbent Elliptical (Biodex) Duration (Minutes) 16 Resistance 5 Therapeutic Exercises Other Exercises Verbally reviewed exercises today Comments Pt has no questions about exercises Gait Training Gait Activity 6MWT Comments SPC in left hand and pt occ picks it up and doesn't use it . Gait 943 feet in 6 minutes, improved since last progress note. She reports 5-6/10 right knee pain with gait. Other gait during treatment throughout the gym with similar gait pattern- inconsistent use of cane in her left hand and favoring the right knee occ Self-Care/Home Management Treatment Education Other Education PT plan going forward is strengthening and gait and getting off the cane and pt verbalizes understanding of this and agreement to plan Benefits of icing right knee Ed in overall improvements per objective testing and higher subjective complaints of not doing well/having ongoing similar impairment PT-OP-R Modalities Start: 02/27/20 07:21 Freq: Status: Active Protocol: Document 04/02/20 13:51 SP (Rec: 04/02/20 14:33 SP [id number]) Ultrasound Therapy Treatment R knee Treatment Duration (minutes) 8 Patient Position Supine Frequency Setting (mHz) 1 Mode Setting Pulsed Duty Cycle 50% Intensity Setting (w/cm2) 1.0 Comments inferior/lateral patella of R knee PT-OP-T Assessment and Plan Start: 02/27/20 07:21 Freq: Status: Active Protocol: Document 05/28/20 10:32 MB (Rec: 05/28/20 11:17 MB [id number]) Physical Therapy Assessment Rehab Potential Rehabilitation Potential Fair Evaluation Complexity Number of Personal Factors/Comorbidities 1-2 Number of Body Systems Impaired 3 Clinical Presentation at Evaluation Evolving Impairments Impairments Activity Tolerance,Balance, Coordination,Functional Activities,Functional Mobility ,Gait,Pain,Posture,ROM, Sensation,Soft Tissue Mobility ,Strength Goals 9 Internal Controls Manager Goal (LTG) Pt will present with B hip flexion and abduction strength to 5/5 and B knee flexion and extension strength to at least 4/5 to improve function and gait by 07/29/20. 05/28/2020: Pt does not tolerate MMT right knee and B hip flexion and abduction 4/5 today LTG Duration 8 weeks 8 Detention Goal (LTG) Pt will perform 15 reps sit to stands without UE assist in 30 sec to improve functional strength by 07/29/20. 05/28/2020: Pt performs 7 reps sit to stand without UE assist in 30 sec LTG Duration 8 weeks 4 Detention Goal (LTG) Pt will present with improved active right knee ROM to 5-117 deg to improve functional transfers and gait by 07/29/20. 05/28/2020: Pt presents with AROM right knee 4-107 deg which is an improvement since last progress note LTG Duration 8 weeks 3 Detention Goal (LTG) Pt will perform progressive HEP with I to improve ROM, strength, gait and balance by 07/29/20. 05/28/2020: Pt is performing curent HEP LTG Duration 8 weeks 2 Impairment Decreased gait Detention Goal (LTG) Pt will gait train at least 1200 feet without AD in 6 minutes to improve community ambulation by 2/22/21. 05/28/2020: Pt gait trains 947 feet with SPC left hand in 6 minutes today, which is a distance improvement since last progress note. LTG Duration 8 weeks 1 Impairment LEF score reflects 45% impairment Internal Controls Manager Goal (LTG) Pt will present with an improved LEF score to reflect no more than 35% impairment to allow improved ability to perform work tasks and to reflect decreased pain by 07/29. 05/28/2020: LEF score reflects 48.75% impairment, similar to last progress note. Pt con't to report high impairment LTG Duration 8 weeks Assessment Summary Assessment Pt con't to be dependent on the cane per her report. She has progressed towards gait, sit to stand, right knee AROM and HEP goals since starting PT. She con't to report high impairment on LEF questionnaire that does not always align with her improved objective findings. Self- limiting behavior is still a barrier to PT. She is 13 months out of right knee arthroscopic surgery and PT would anticipate that she would be gait training without a cane and performing more strengthening exercises at this point post-op. Pt is disappointment that acupunture was deniesd. She may be willing to try theraband exercises again and/or try 1 lb ankle weights. Strengthening is the direction that PT hopes to move. She will benefit from ongoing PT to improve range, strength, gait and function. Will consider some balance training in the future as well. Pt does have a complaint of LBP and she asks about getting this as an add on to this PT treatment and PT ed her that given the length of her knee problem and her reports that she is seeking transactional paralegal about her knee problem and work, that PT does not advise adding another body part into current PT course. Back pain will be addressed with exercises for core, hip, legs, gait and balance in this PT treatment course for her right knee. Physical Therapy Plan Frequency and Duration Frequency of Treatment 1x/Week Duration of Treatment 8 weeks Plan of Care Start Date 05/28/20 Plan of Care End Date 07/29/20 Therapeutic Interventions Therapeutic Interventions Balance Training,Coordination Training,Gait Training,Home Exercise Program,Joint Mobilizations,Manual Therapy, Neuromuscular Re-education, Patient/Caregiver Education, Self-Care/Home Management, Sensory Integration,Soft Tissue Mobilization,Taping, Therapeutic Activities, Therapeutic Exercises Modalities Electric Stimulation,Hot Packs ,Infrared Therapy,Ultrasound Next Visit Focus/Plan Next Note Type Treatment Note Next Visit Plan Review HEP, consider ankle weights (1#) vs band, likely weights for standing exercises
--- NOTE | 2020-05-28 15:02 | PT.OPPOC ---
Physical, Occupational & Speech Therapy At [facility] Current Diagnoses Pain in right knee (05/28/20) Visit Care Team Role Provider Type Kerri De Los Santos MD Attending Provider Non-Staff Primary Care Provider Referring Provider Specialty: Family Practice Address: [address] [place] [address], [id number] Email: Plan Of Care PT-OP-T Assessment and Plan Start: 02/27/20 07:21 Freq: Status: Active Protocol: Document 05/28/20 10:32 MB (Rec: 05/28/20 11:17 MB [id number]) Physical Therapy Assessment Rehab Potential Rehabilitation Potential Fair Evaluation Complexity Number of Personal Factors/Comorbidities 1-2 Number of Body Systems Impaired 3 Clinical Presentation at Evaluation Evolving Impairments Impairments Activity Tolerance,Balance, Coordination,Functional Activities,Functional Mobility ,Gait,Pain,Posture,ROM, Sensation,Soft Tissue Mobility ,Strength Goals 9 Retirement Goal (LTG) Pt will present with B hip flexion and abduction strength to 5/5 and B knee flexion and extension strength to at least 4/5 to improve function and gait by 07/29/20. 05/28/2020: Pt does not tolerate MMT right knee and B hip flexion and abduction 4/5 today LTG Duration 8 weeks 8 Numerologist Goal (LTG) Pt will perform 15 reps sit to stands without UE assist in 30 sec to improve functional strength by 07/29/20. 05/28/2020: Pt performs 7 reps sit to stand without UE assist in 30 sec LTG Duration 8 weeks 4 Numerologist Goal (LTG) Pt will present with improved active right knee ROM to 5-117 deg to improve functional transfers and gait by 07/29/20. 05/28/2020: Pt presents with AROM right knee 4-107 deg which is an improvement since last progress note LTG Duration 8 weeks 3 Retirement Goal (LTG) Pt will perform progressive HEP with I to improve ROM, strength, gait and balance by 07/29/20. 05/28/2020: Pt is performing curent HEP LTG Duration 8 weeks 2 Impairment Decreased gait Numerologist Goal (LTG) Pt will gait train at least 1200 feet without AD in 6 minutes to improve community ambulation by 07/29/20. 05/28/2020: Pt gait trains 947 feet with SPC left hand in 6 minutes today, which is a distance improvement since last progress note. LTG Duration 8 weeks 1 Impairment LEF score reflects 45% impairment Retirement Goal (LTG) Pt will present with an improved LEF score to reflect no more than 35% impairment to allow improved ability to perform work tasks and to reflect decreased pain by 07/29. 05/28/2020: LEF score reflects 48.75% impairment, similar to last progress note. Pt con't to report high impairment LTG Duration 8 weeks Assessment Summary Assessment Pt con't to be dependent on the cane per her report. She has progressed towards gait, sit to stand, right knee AROM and HEP goals since starting PT. She con't to report high impairment on LEF questionnaire that does not always align with improved objective findings. Self- limiting behavior is still a barrier to PT. She is 13 months out of right knee arthroscopic surgery and PT would anticipate that she would be gait training without a cane and performing more strengthening exercises at this point post-op. Pt is disappointed that acupunture was denied. She may be willing to try theraband exercises again and/or try 1 lb ankle weights. Strengthening is the direction that PT hopes to move. She will benefit from ongoing PT to improve range, strength, gait and function. Will consider some balance training in the future as well. Pt does have a complaint of LBP and she asks about getting this as an add on order to this PT treatment course and PT ed her that given the length of her knee problem and her reports that she is seeking legal executive assistant about her knee problem and work, that PT does not advise adding another body part into current PT course. Back pain will be addressed with exercises for core, hip, legs, gait and balance in this PT treatment course for her right knee. Physical Therapy Plan Frequency and Duration Frequency of Treatment 1x/Week Duration of Treatment 8 weeks Plan of Care Start Date 05/28/20 Plan of Care End Date 07/29/20 Therapeutic Interventions Therapeutic Interventions Balance Training,Coordination Training,Gait Training,Home Exercise Program,Joint Mobilizations,Manual Therapy, Neuromuscular Re-education, Patient/Caregiver Education, Self-Care/Home Management, Sensory Integration,Soft Tissue Mobilization,Taping, Therapeutic Activities, Therapeutic Exercises Modalities Electric Stimulation,Hot Packs ,Infrared Therapy,Ultrasound Next Visit Focus/Plan Next Note Type Treatment Note Next Visit Plan Review HEP, consider ankle weights (1#) vs band, likely weights for standing exercises Plan of Care Dates Plan of Care Start Date 05/28/20 Plan of Care End Date 07/29/20 Electronically Signed by: Dixie Fam, PT 05/28/20 [id number] Please Sign and Return: I have reviewed this Plan of Care and certify that the skilled therapy services above are required to meet the patient?s needs. Physician Signature Date Printed Name and Credentials Clinical Instructor Signature Printed Name and Credentials
--- NOTE | 2020-06-13 11:18 | PT.OTN ---
Current Diagnoses Pain in right knee (06/13/20) Physical Therapy Treatment Note PT-OP-A Visit Information Start: 02/27/20 07:21 Freq: Status: Active Protocol: Document 06/13/20 10:38 MB (Rec: 06/13/20 11:18 MB [id number]) Out-Patient Physical Therapy Visit Information Visit Information Visit Type Treatment Note Visit Start Time 10:38 Visit Stop Time 11:16 Total Visit Minutes 38 Visit Number Last of current auth Number of PHOTOGRAPHIC RESTORER Visits 0 PT-OP-B Current Condition Start: 02/27/20 07:21 Freq: Status: Active Protocol: Document 03/21/20 13:30 MB (Rec: 03/21/20 14:01 MB [id number]) Current Condition History of Current Condition Onset Date 09/25/2018 Current Complaints Constant pain and swelling and pain right knee History of Current Condition Pt underwent right knee arthroscopic surgery 2019. Dr. Rollins did the surgery. She started PT and then reported she wanted further work-up from a second provider opinion. PT was then stopped. She gained a little weight and she has changed her diet and got a total gym. She went back to work part-time at [employer] January 2020. February 05 was her last day of work because her right knee swelled up again. She filed a claim with a wet suit gluer for L&I. She states that Dr. Rollins wants her to do a month of PT as well as get acupuncture. She is looking for a place to get acupuncture . Pt has to walk with cane in her left hand. She is doing a detox bath. She is frustrated with the pain and inability to work. Her mom has to have back surgery. She has been living with pt and family. Pt feels like she might need a TKR. She is tired of situation . Pt reports 6/10 constant right knee pain localized to anterior and posterior knee. Flexoril is helping her sleep. Icing helps her knee. She is using TENS on her right knee. Her machine is 15 years old and she asks about getting another one through this clinic. PMH: powdered latex, degenerative arthritis in her back, bruises easily, fall in [facility] last year when she injured her leg--she slipped on water, gastric bypass surgery, pt is taking Tylenol everyday Prior Treatments and Tests MRI 03/08/2020: small joint effusion, sprain of the medial patellofemoral ligament without definite complete rupture, large Burkett's cyst, mild patellar tendinopathy with adjacent fluid and edema, mild joint degeneration, most pronounced in the patellofemoral compartment. PT-OP-C Subjective Start: 02/27/20 07:21 Freq: Status: Active Protocol: Document 06/13/20 10:38 MB (Rec: 06/13/20 11:18 MB [id number]) OP-PT Subjective Patient Comments Patient Comments My back is killing me. Pt reports that she is using topical CBD, heating pad and detox bath PT-OP-D Balance Start: 02/27/20 07:21 Freq: Status: Active Protocol: Document 03/21/20 13:30 MB (Rec: 03/21/20 16:15 MB [id number]) OP-PT Balance Assessment Sitting Balance Static Sitting Balance Ability Good Dynamic Sitting Balance Ability Fair Sitting Balance Comments UE support for scooting EOB Standing Balance Static Standing Balance Ability Fair Dynamic Standing Balance Ability Fair Device Used SPC left hand Standing Balance Comments Pt decreases WB through RLE Dillon Fall Scale Copyright Permission PT-OP-G Mobility & Gait Start: 02/27/20 07:21 Freq: Status: Active Protocol: Document 03/21/20 13:30 MB (Rec: 03/21/20 16:15 MB [id number]) OP Mobility Evaluation Bed Mobility Rolling I Supine to and from Sit I Transfers Sit to Stand UE support OP Gait Assessment Gait Gait Assistance Required: Independent Distance (Feet) 70 Assistive Devices Assistive Device Straight Cane Gait Deviations General Gait Pattern Antalgic,Decreased Stride Length,Decreased Feet Clearance,Flexed Trunk Factors Limiting Gait Function Factors Limiting Gait Function Decreased Activity Tolerance, Decreased Strength,Limited Range of Motion,Pain,Poor Balance Comments Gait Comments Pt's SPC is tall and PT lowers it to the correct height PT-OP-J Posture/Palpation/Skin Start: 02/27/20 07:21 Freq: Status: Active Protocol: Document 03/21/20 13:30 MB (Rec: 03/21/20 16:15 MB [id number]) Posture Evaluation Comments Posture Comments Forward head, rounded shoulders and pt limits standing time and WB on right LE, flexed posture at hips and right knee, increased globalized soft tissue PT-OP-K Range of Motion Start: 02/27/20 07:21 Freq: Status: Active Protocol: Document 03/21/20 13:30 MB (Rec: 03/21/20 16:15 MB [id number]) Knee Goniometric Range of Motion Knee Left knee Knee ROM WFL No Patient Position Supine Flexion Active (degrees) 0 Extension Active (degrees) 100 R knee Knee ROM WFL No Patient Position Supine Flexion Active (degrees) 36 Extension Active (degrees) 11 PT-OP-M Strength Start: 02/27/20 07:21 Freq: Status: Active Protocol: Document 03/21/20 13:30 MB (Rec: 03/21/20 16:15 MB [id number]) Hip Strength Hip Manual Muscle Testing Right Comments Deferred d/t pt states she is worried about PT testing her right leg Left Flexion (L2) 4 Good Abduction 4 Good Knee Strength Knee Manual Muscle Testing Right Comments Deferred d/t pt states she is worried about PT testing her right leg Left Flexion (S2) 4 Good Extension (L3) 4 Good Ankle/Foot Strength Ankle and Foot Manual Muscle Testing Right Dorsiflexion (L4) 4 Good Left Dorsiflexion (L4) 5 Normal Toe Strength Toe Manual Muscle Testing Left Great Toe Extension 4 Good Right Great Toe Extension 4 Good PT-OP-Q Treatments Start: 02/27/20 07:21 Freq: Status: Active Protocol: Document 06/13/20 10:38 MB (Rec: 06/13/20 11:18 MB [id number]) Cardio Equipment Recumbent Bicycle Duration (Minutes) 10 Resistance 4 Manual Therapy Treatment Other Other Manual Treatments R knee: STM middle quads, vastus lateralis, posterior knee and muscles and proximal gastroc PT-OP-R Modalities Start: 02/27/20 07:21 Freq: Status: Active Protocol: Document 04/02/20 13:51 SP (Rec: 04/02/20 14:33 SP [id number]) Ultrasound Therapy Treatment R knee Treatment Duration (minutes) 8 Patient Position Supine Frequency Setting (mHz) 1 Mode Setting Pulsed Duty Cycle 50% Intensity Setting (w/cm2) 1.0 Comments inferior/lateral patella of R knee PT-OP-T Assessment and Plan Start: 02/27/20 07:21 Freq: Status: Active Protocol: Document 06/13/20 10:38 MB (Rec: 06/13/20 11:18 MENA [id number]) Physical Therapy Assessment Rehab Potential Rehabilitation Potential Fair Evaluation Complexity Number of Personal Factors/Comorbidities 1-2 Number of Body Systems Impaired 3 Clinical Presentation at Evaluation Evolving Impairments Impairments Activity Tolerance,Balance, Coordination,Functional Activities,Functional Mobility ,Gait,Pain,Posture,ROM, Sensation,Soft Tissue Mobility ,Strength Goals 9 Halfway Goal (LTG) Pt will present with B hip flexion and abduction strength to 5/5 and B knee flexion and extension strength to at least 4/5 to improve function and gait by 07/29/20. 05/28/2020: Pt does not tolerate MMT right knee and B hip flexion and abduction 4/5 today LTG Duration 8 weeks 8 Leather Stripping Machine Operator Goal (LTG) Pt will perform 15 reps sit to stands without UE assist in 30 sec to improve functional strength by 07/29/20. 05/28/2020: Pt performs 7 reps sit to stand without UE assist in 30 sec LTG Duration 8 weeks 4 Leather Stripping Machine Operator Goal (LTG) Pt will present with improved active right knee ROM to 5-117 deg to improve functional transfers and gait by 07/29/20. 05/28/2020: Pt presents with AROM right knee 4-107 deg which is an improvement since last progress note LTG Duration 8 weeks 3 Leather Stripping Machine Operator Goal (LTG) Pt will perform progressive HEP with I to improve ROM, strength, gait and balance by 07/29/20. 05/28/2020: Pt is performing curent HEP LTG Duration 8 weeks 2 Impairment Decreased gait Leather Stripping Machine Operator Goal (LTG) Pt will gait train at least 1200 feet without AD in 6 minutes to improve community ambulation by 07/29/20. 05/28/2020: Pt gait trains 947 feet with SPC left hand in 6 minutes today, which is a distance improvement since last progress note. LTG Duration 8 weeks 1 Impairment LEF score reflects 45% impairment Leather Stripping Machine Operator Goal (LTG) Pt will present with an improved LEF score to reflect no more than 35% impairment to allow improved ability to perform work tasks and to reflect decreased pain by 07/29. 05/28/2020: LEF score reflects 48.75% impairment, similar to last progress note. Pt con't to report high impairment LTG Duration 8 weeks Assessment Summary Assessment Recumbent bike today and manual work and progress gait without cane next treatment date. Pt con't to rely on having cane with gait. Her knee flexion is normal on the recumbent bike today. She is going to pay OOP for acupuncture at school in [place] and will ask pt about how this goes. Physical Therapy Plan Frequency and Duration Frequency of Treatment 1x/Week Duration of Treatment 8 weeks Plan of Care Start Date 05/28/20 Plan of Care End Date 07/29/20 Therapeutic Interventions Therapeutic Interventions Balance Training,Coordination Training,Gait Training,Home Exercise Program,Joint Mobilizations,Manual Therapy, Neuromuscular Re-education, Patient/Caregiver Education, Self-Care/Home Management, Sensory Integration,Soft Tissue Mobilization,Taping, Therapeutic Activities, Therapeutic Exercises Modalities Electric Stimulation,Hot Packs ,Infrared Therapy,Ultrasound Next Visit Focus/Plan Next Note Type Treatment Note Next Visit Plan Gait training. Review HEP, consider ankle weights (1#) vs band, likely weights for standing exercises
--- NOTE | 2020-06-20 11:11 | PT.OTN ---
Current Diagnoses Pain in right knee (06/20/20) Physical Therapy Treatment Note PT-OP-A Visit Information Start: 02/27/20 07:21 Freq: Status: Active Protocol: Document 06/20/20 10:32 MB (Rec: 06/20/20 11:00 MB [id number]) Out-Patient Physical Therapy Visit Information Visit Information Visit Type Treatment Note Visit Start Time 10:32 Visit Stop Time 11:10 Total Visit Minutes 38 Visit Number 06/18 on auth treat PT-OP-B Current Condition Start: 02/27/20 07:21 Freq: Status: Active Protocol: Document 03/21/20 13:30 MB (Rec: 03/21/20 14:01 MB [id number]) Current Condition History of Current Condition Onset Date 09/25/2018 Current Complaints Constant pain and swelling and pain right knee History of Current Condition Pt underwent right knee arthroscopic surgery 2019. Dr. Rollins did the surgery. She started PT and then reported she wanted further work-up from a second provider opinion. PT was then stopped. She gained a little weight and she has changed her diet and got a total gym. She went back to work part-time at [employer] January 2020. February 05 was her last day of work because her right knee swelled up again. She filed a claim with a film recordist for L&I. She states that Dr. Rollins wants her to do a month of PT as well as get acupuncture. She is looking for a place to get acupuncture . Pt has to walk with cane in her left hand. She is doing a detox bath. She is frustrated with the pain and inability to work. Her mom has to have back surgery. She has been living with pt and family. Pt feels like she might need a TKR. She is tired of situation . Pt reports 6/10 constant right knee pain localized to anterior and posterior knee. Flexoril is helping her sleep. Icing helps her knee. She is using TENS on her right knee. Her machine is 15 years old and she asks about getting another one through this clinic. PMH: powdered latex, degenerative arthritis in her back, bruises easily, fall in [facility] last year when she injured her leg--she slipped on water, gastric bypass surgery, pt is taking Tylenol everyday Prior Treatments and Tests MRI 03/08/2020: small joint effusion, sprain of the medial patellofemoral ligament without definite complete rupture, large Burkett's cyst, mild patellar tendinopathy with adjacent fluid and edema, mild joint degeneration, most pronounced in the patellofemoral compartment. PT-OP-C Subjective Start: 02/27/20 07:21 Freq: Status: Active Protocol: Document 06/20/20 10:32 MB (Rec: 06/20/20 11:00 MB [id number]) OP-PT Subjective Patient Comments Patient Comments My right low back pain is so bad that I may need a MRI. Pt con't to report severe right LBP and will follow-up with her doctor about it. PT-OP-D Balance Start: 02/27/20 07:21 Freq: Status: Active Protocol: Document 03/21/20 13:30 MB (Rec: 03/21/20 16:15 MB [id number]) OP-PT Balance Assessment Sitting Balance Static Sitting Balance Ability Good Dynamic Sitting Balance Ability Fair Sitting Balance Comments UE support for scooting EOB Standing Balance Static Standing Balance Ability Fair Dynamic Standing Balance Ability Fair Device Used SPC left hand Standing Balance Comments Pt decreases WB through RLE Dillon Fall Scale Copyright Permission PT-OP-G Mobility & Gait Start: 02/27/20 07:21 Freq: Status: Active Protocol: Document 03/21/20 13:30 MB (Rec: 03/21/20 16:15 MB [id number]) OP Mobility Evaluation Bed Mobility Rolling I Supine to and from Sit I Transfers Sit to Stand UE support OP Gait Assessment Gait Gait Assistance Required: Independent Distance (Feet) 70 Assistive Devices Assistive Device Straight Cane Gait Deviations General Gait Pattern Antalgic,Decreased Stride Length,Decreased Feet Clearance,Flexed Trunk Factors Limiting Gait Function Factors Limiting Gait Function Decreased Activity Tolerance, Decreased Strength,Limited Range of Motion,Pain,Poor Balance Comments Gait Comments Pt's SPC is tall and PT lowers it to the correct height PT-OP-J Posture/Palpation/Skin Start: 02/27/20 07:21 Freq: Status: Active Protocol: Document 03/21/20 13:30 MB (Rec: 03/21/20 16:15 MB [id number]) Posture Evaluation Comments Posture Comments Forward head, rounded shoulders and pt limits standing time and WB on right LE, flexed posture at hips and right knee, increased globalized soft tissue PT-OP-K Range of Motion Start: 02/27/20 07:21 Freq: Status: Active Protocol: Document 03/21/20 13:30 MB (Rec: 03/21/20 16:15 MB [id number]) Knee Goniometric Range of Motion Knee Left knee Knee ROM WFL No Patient Position Supine Flexion Active (degrees) 0 Extension Active (degrees) 100 R knee Knee ROM WFL No Patient Position Supine Flexion Active (degrees) 36 Extension Active (degrees) 11 PT-OP-M Strength Start: 02/27/20 07:21 Freq: Status: Active Protocol: Document 03/21/20 13:30 MB (Rec: 03/21/20 16:15 MB [id number]) Hip Strength Hip Manual Muscle Testing Right Comments Deferred d/t pt states she is worried about PT testing her right leg Left Flexion (L2) 4 Good Abduction 4 Good Knee Strength Knee Manual Muscle Testing Right Comments Deferred d/t pt states she is worried about PT testing her right leg Left Flexion (S2) 4 Good Extension (L3) 4 Good Ankle/Foot Strength Ankle and Foot Manual Muscle Testing Right Dorsiflexion (L4) 4 Good Left Dorsiflexion (L4) 5 Normal Toe Strength Toe Manual Muscle Testing Left Great Toe Extension 4 Good Right Great Toe Extension 4 Good PT-OP-Q Treatments Start: 02/27/20 07:21 Freq: Status: Active Protocol: Document 06/20/20 10:32 MB (Rec: 06/20/20 11:00 MB [id number]) Cardio Equipment Recumbent Stepper (Sci-Fit) Duration (Minutes) 15 Resistance 4 Seat Position 8 Therapeutic Exercises Supine Exercises B lumbar rotation Side bilateral Comments Gently 5 reps B glute stretch Side bilateral Comments B and pt reports this helps Pelvic realignment exercises Side bilateral Comments 5 reps, 3 sec hold each exercise today; beginning/ ending 10 reps ball squee Self-Care/Home Management Treatment Education Other Education Ongoing ed to follow-up with her doctor about right SI pain , communicate with doctor that PT has assessed that this is likely the cause of her pain, and encouraged [place]. Ed in connection of sitting positions and ongoing use of cane as contributors to pain. Ed pt in better sleeping positioning with legs supported on pillow, sitting upright and squeezing ball between knees PT-OP-R Modalities Start: 02/27/20 07:21 Freq: Status: Active Protocol: Document 04/02/20 13:51 SP (Rec: 04/02/20 14:33 SP [id number]) Ultrasound Therapy Treatment R knee Treatment Duration (minutes) 8 Patient Position Supine Frequency Setting (mHz) 1 Mode Setting Pulsed Duty Cycle 50% Intensity Setting (w/cm2) 1.0 Comments inferior/lateral patella of R knee PT-OP-T Assessment and Plan Start: 02/27/20 07:21 Freq: Status: Active Protocol: Document 06/20/20 10:32 MB (Rec: 06/20/20 11:00 MB [id number]) Physical Therapy Assessment Rehab Potential Rehabilitation Potential Fair Evaluation Complexity Number of Personal Factors/Comorbidities 1-2 Number of Body Systems Impaired 3 Clinical Presentation at Evaluation Evolving Impairments Impairments Activity Tolerance,Balance, Coordination,Functional Activities,Functional Mobility ,Gait,Pain,Posture,ROM, Sensation,Soft Tissue Mobility ,Strength Goals 9 Program Control Analyst Goal (LTG) Pt will present with B hip flexion and abduction strength to 5/5 and B knee flexion and extension strength to at least 4/5 to improve function and gait by 07/29/20. 05/28/2020: Pt does not tolerate MMT right knee and B hip flexion and abduction 4/5 today LTG Duration 8 weeks 8 Group Home Goal (LTG) Pt will perform 15 reps sit to stands without UE assist in 30 sec to improve functional strength by 07/29/20. 05/28/2020: Pt performs 7 reps sit to stand without UE assist in 30 sec LTG Duration 8 weeks 4 Group Home Goal (LTG) Pt will present with improved active right knee ROM to 5-117 deg to improve functional transfers and gait by 07/29/20. 05/28/2020: Pt presents with AROM right knee 4-107 deg which is an improvement since last progress note LTG Duration 8 weeks 3 Program Control Analyst Goal (LTG) Pt will perform progressive HEP with I to improve ROM, strength, gait and balance by 07/29/20. 05/28/2020: Pt is performing curent HEP LTG Duration 8 weeks 2 Impairment Decreased gait Program Control Analyst Goal (LTG) Pt will gait train at least 1200 feet without AD in 6 minutes to improve community ambulation by 07/29/20. 05/28/2020: Pt gait trains 947 feet with SPC left hand in 6 minutes today, which is a distance improvement since last progress note. LTG Duration 8 weeks 1 Impairment LEF score reflects 45% impairment Program Control Analyst Goal (LTG) Pt will present with an improved LEF score to reflect no more than 35% impairment to allow improved ability to perform work tasks and to reflect decreased pain by 07/29. 05/28/2020: LEF score reflects 48.75% impairment, similar to last progress note. Pt con't to report high impairment LTG Duration 8 weeks Assessment Summary Assessment Recumbent stepper today d/t pt 's report of severe pain at her right SI area. PT encourages [place] to [place] SI/lumbar spine . Pt verbalizes understanding of this recommendations. PT is limited d/t reports of LBP. Initiated pelvic realignment exercises today to help with alignment with gait. Physical Therapy Plan Frequency and Duration Frequency of Treatment 1x/Week Duration of Treatment 8 weeks Plan of Care Start Date 05/28/20 Plan of Care End Date 07/29/20 Therapeutic Interventions Therapeutic Interventions Balance Training,Coordination Training,Gait Training,Home Exercise Program,Joint Mobilizations,Manual Therapy, Neuromuscular Re-education, Patient/Caregiver Education, Self-Care/Home Management, Sensory Integration,Soft Tissue Mobilization,Taping, Therapeutic Activities, Therapeutic Exercises Modalities Electric Stimulation,Hot Packs ,Infrared Therapy,Ultrasound Next Visit Focus/Plan Next Note Type Treatment Note Next Visit Plan Similarly: Gait training. Review HEP, consider ankle weights (1#) vs band, likely weights for standing exercises
--- NOTE | 2020-07-04 11:15 | PT.OTN ---
Current Diagnoses Pain in right knee (07/04/20) Physical Therapy Treatment Note PT-OP-A Visit Information Start: 02/27/20 07:21 Freq: Status: Active Protocol: Document 07/04/20 10:32 MB (Rec: 07/04/20 10:56 MB [id number]) Out-Patient Physical Therapy Visit Information Visit Information Visit Type Treatment Note Visit Note Hanna Prime, 07/19 visits on current auth Visit Start Time 10:32 Visit Stop Time 11:15 Total Visit Minutes 43 Visit Number 27th treatment (07/19 on auth) PT-OP-B Current Condition Start: 02/27/20 07:21 Freq: Status: Active Protocol: Document 03/21/20 13:30 MB (Rec: 03/21/20 14:01 MB [id number]) Current Condition History of Current Condition Onset Date 09/25/2018 Current Complaints Constant pain and swelling and pain right knee History of Current Condition Pt underwent right knee arthroscopic surgery 2019. Dr. Rollins did the surgery. She started PT and then reported she wanted further work-up from a second provider opinion. PT was then stopped. She gained a little weight and she has changed her diet and got a total gym. She went back to work part-time at [employer] January 2020. February 05 was her last day of work because her right knee swelled up again. She filed a claim with a client executive for L&I. She states that Dr. Rollins wants her to do a month of PT as well as get acupuncture. She is looking for a place to get acupuncture . Pt has to walk with cane in her left hand. She is doing a detox bath. She is frustrated with the pain and inability to work. Her mom has to have back surgery. She has been living with pt and family. Pt feels like she might need a TKR. She is tired of situation . Pt reports 6/10 constant right knee pain localized to anterior and posterior knee. Flexoril is helping her sleep. Icing helps her knee. She is using TENS on her right knee. Her machine is 15 years old and she asks about getting another one through this clinic. PMH: powdered latex, degenerative arthritis in her back, bruises easily, fall in [facility] last year when she injured her leg--she slipped on water, gastric bypass surgery, pt is taking Tylenol everyday Prior Treatments and Tests MRI 03/08/2020: small joint effusion, sprain of the medial patellofemoral ligament without definite complete rupture, large Burkett's cyst, mild patellar tendinopathy with adjacent fluid and edema, mild joint degeneration, most pronounced in the patellofemoral compartment. PT-OP-C Subjective Start: 02/27/20 07:21 Freq: Status: Active Protocol: Document 07/04/20 10:32 MB (Rec: 07/04/20 10:56 MB [id number]) OP-PT Subjective Patient Comments Patient Comments I don't feel like doing the bike. Pt reports that her back is bothering her and she is waiting to hear back from her doctor about an appointment about her back. Pt states that she is waiting for a call back from her client executive and has to see the L&I doctor in [facility] 07/18/2020. Dr. Rollins made a statement about her initial right knee injury she reports. She got ankle weights. PT-OP-D Balance Start: 02/27/20 07:21 Freq: Status: Active Protocol: Document 03/21/20 13:30 MB (Rec: 03/21/20 16:15 MB [id number]) OP-PT Balance Assessment Sitting Balance Static Sitting Balance Ability Good Dynamic Sitting Balance Ability Fair Sitting Balance Comments UE support for scooting EOB Standing Balance Static Standing Balance Ability Fair Dynamic Standing Balance Ability Fair Device Used SPC left hand Standing Balance Comments Pt decreases WB through RLE Dillon Fall Scale Copyright Permission PT-OP-G Mobility & Gait Start: 02/27/20 07:21 Freq: Status: Active Protocol: Document 03/21/20 13:30 MB (Rec: 03/21/20 16:15 MB [id number]) OP Mobility Evaluation Bed Mobility Rolling I Supine to and from Sit I Transfers Sit to Stand UE support OP Gait Assessment Gait Gait Assistance Required: Independent Distance (Feet) 70 Assistive Devices Assistive Device Straight Cane Gait Deviations General Gait Pattern Antalgic,Decreased Stride Length,Decreased Feet Clearance,Flexed Trunk Factors Limiting Gait Function Factors Limiting Gait Function Decreased Activity Tolerance, Decreased Strength,Limited Range of Motion,Pain,Poor Balance Comments Gait Comments Pt's SPC is tall and PT lowers it to the correct height PT-OP-J Posture/Palpation/Skin Start: 02/27/20 07:21 Freq: Status: Active Protocol: Document 03/21/20 13:30 MB (Rec: 03/21/20 16:15 MB [id number]) Posture Evaluation Comments Posture Comments Forward head, rounded shoulders and pt limits standing time and WB on right LE, flexed posture at hips and right knee, increased globalized soft tissue PT-OP-K Range of Motion Start: 02/27/20 07:21 Freq: Status: Active Protocol: Document 03/21/20 13:30 MB (Rec: 03/21/20 16:15 MB [id number]) Knee Goniometric Range of Motion Knee Left knee Knee ROM WFL No Patient Position Supine Flexion Active (degrees) 0 Extension Active (degrees) 100 R knee Knee ROM WFL No Patient Position Supine Flexion Active (degrees) 36 Extension Active (degrees) 11 PT-OP-M Strength Start: 02/27/20 07:21 Freq: Status: Active Protocol: Document 03/21/20 13:30 MB (Rec: 03/21/20 16:15 MB [id number]) Hip Strength Hip Manual Muscle Testing Right Comments Deferred d/t pt states she is worried about PT testing her right leg Left Flexion (L2) 4 Good Abduction 4 Good Knee Strength Knee Manual Muscle Testing Right Comments Deferred d/t pt states she is worried about PT testing her right leg Left Flexion (S2) 4 Good Extension (L3) 4 Good Ankle/Foot Strength Ankle and Foot Manual Muscle Testing Right Dorsiflexion (L4) 4 Good Left Dorsiflexion (L4) 5 Normal Toe Strength Toe Manual Muscle Testing Left Great Toe Extension 4 Good Right Great Toe Extension 4 Good PT-OP-Q Treatments Start: 02/27/20 07:21 Freq: Status: Active Protocol: Document 07/04/20 10:32 MB (Rec: 07/04/20 10:56 MB [id number]) Therapeutic Exercises Other Exercises Verbally reviewed exercises today Comments Revised HEP to add in goal section and for pt review/ reports Manual Therapy Treatment Other Other Manual Treatments R knee: STM middle quads, vastus lateralis, posterior knee and muscles and proximal gastroc, also distal attachment adductors PT-OP-R Modalities Start: 02/27/20 07:21 Freq: Status: Active Protocol: Document 04/02/20 13:51 SP (Rec: 04/02/20 14:33 SP [id number]) Ultrasound Therapy Treatment R knee Treatment Duration (minutes) 8 Patient Position Supine Frequency Setting (mHz) 1 Mode Setting Pulsed Duty Cycle 50% Intensity Setting (w/cm2) 1.0 Comments inferior/lateral patella of R knee PT-OP-T Assessment and Plan Start: 02/27/20 07:21 Freq: Status: Active Protocol: Document 07/04/20 10:32 MB (Rec: 07/04/20 10:56 MB [id number]) Physical Therapy Assessment Rehab Potential Rehabilitation Potential Fair Evaluation Complexity Number of Personal Factors/Comorbidities 1-2 Number of Body Systems Impaired 3 Clinical Presentation at Evaluation Evolving Impairments Impairments Activity Tolerance,Balance, Coordination,Functional Activities,Functional Mobility ,Gait,Pain,Posture,ROM, Sensation,Soft Tissue Mobility ,Strength Goals 9 Longterm Goal (LTG) Pt will present with B hip flexion and abduction strength to 5/5 and B knee flexion and extension strength to at least 4/5 to improve function and gait by 07/29/20. 05/28/2020: Pt does not tolerate MMT right knee and B hip flexion and abduction 4/5 today LTG Duration 8 weeks 8 Longterm Goal (LTG) Pt will perform 15 reps sit to stands without UE assist in 30 sec to improve functional strength by 07/29/20. 05/28/2020: Pt performs 7 reps sit to stand without UE assist in 30 sec LTG Duration 8 weeks 4 Longterm Goal (LTG) Pt will present with improved active right knee ROM to 5-117 deg to improve functional transfers and gait by 07/29/20. 05/28/2020: Pt presents with AROM right knee 4-107 deg which is an improvement since last progress note LTG Duration 8 weeks 3 Longterm Goal (LTG) Pt will perform progressive HEP with I to improve ROM, strength, gait and balance by 07/29/20. 07/04/20: Everyday: pelvic realignment exercises, standing hamstring curls, heel raises, standing hip extension and abduction, terminal knee extension with band in standing; as needed: AP, GS, HS sitting and supine, lumbar rotation and buttocks stretch, rolling pin self- massage LTG Duration 8 weeks 2 Impairment Decreased gait Bender Helper Goal (LTG) Pt will gait train at least 1200 feet without AD in 6 minutes to improve community ambulation by 07/29/20. 05/28/2020: Pt gait trains 947 feet with SPC left hand in 6 minutes today, which is a distance improvement since last progress note. LTG Duration 8 weeks 1 Impairment LEF score reflects 45% impairment Longterm Goal (LTG) Pt will present with an improved LEF score to reflect no more than 35% impairment to allow improved ability to perform work tasks and to reflect decreased pain by 07/29. 05/28/2020: LEF score reflects 48.75% impairment, similar to last progress note. Pt con't to report high impairment LTG Duration 8 weeks Assessment Summary Assessment Pt con't with severe right SI pain and this is a barrier to PT for her knee. She has had to miss some PT appointments and this is a problem with progressing HEP. Reviewed and revised current HEP today and will see if pt can tolerate and will perform exercises with her back pain. Pt sgtates that she cannot tolerate any exercises during treatment today and PT provides manual work on her right leg. Once again, decreased tolerance/ self-limiting behavior is a barrier to PT progression. Will cancel the next two PT appointments in hopes that she will get in with her doctor about her right SI pain, PT recommends DO. Physical Therapy Plan Frequency and Duration Frequency of Treatment 1x/Week Duration of Treatment 8 weeks Plan of Care Start Date 05/28/20 Plan of Care End Date 07/29/20 Therapeutic Interventions Therapeutic Interventions Balance Training,Coordination Training,Gait Training,Home Exercise Program,Joint Mobilizations,Manual Therapy, Neuromuscular Re-education, Patient/Caregiver Education, Self-Care/Home Management, Sensory Integration,Soft Tissue Mobilization,Taping, Therapeutic Activities, Therapeutic Exercises Modalities Electric Stimulation,Hot Packs ,Infrared Therapy,Ultrasound Next Visit Focus/Plan Next Note Type Treatment Note Next Visit Plan Similarly: Gait training. Review HEP, consider ankle weights (1#) vs band, likely weights for standing exercises
--- NOTE | 2020-08-15 15:35 | PT-OP ANOTE ---
PT calls pt. Pt states that things have been rough. Pt states that her fabricator industrial furnace is meeting about her L&I case today and she does not yet know results. Pt states that the L&I doctor examined her and moved her knee and she has been in excruciating pain since then. She has been icing her knee, using heat and taking baths. [place] She con't with back pain. Pt feels like PT has been going good. She wants to feel better. PT ed pt that there have been many breaks in PT, complications of SI pain and decreased progress towards goals including her goal to get off the cane and that she has limited this. Pt would like to keep appointment on 08/22 and [place] and then will call PT back about plan. 08/22 treatment will be a progress note if pt comes. Overall, functional presentation as far as progress with PT is guarded to poor.
--- NOTE | 2020-08-22 11:13 | PT.OTN ---
Current Diagnoses Pain in right knee (08/22/20) Physical Therapy Treatment Note PT-OP-A Visit Information Start: 02/27/20 07:21 Freq: Status: Active Protocol: Document 08/22/20 09:00 MB (Rec: 08/22/20 09:23 MB [id number]) Out-Patient Physical Therapy Visit Information Visit Information Visit Type Treatment Note Visit Note Hanna Haines, 3/ visits on current auth Visit Start Time 09:00 Visit Stop Time 09:42 Total Visit Minutes 42 Visit Number 28th treatment PT-OP-B Current Condition Start: 02/27/20 07:21 Freq: Status: Active Protocol: Document 03/21/20 13:30 MB (Rec: 03/21/20 14:01 MB [id number]) Current Condition History of Current Condition Onset Date 09/25/2018 Current Complaints Constant pain and swelling and pain right knee History of Current Condition Pt underwent right knee arthroscopic surgery 2019. Dr. Rollins did the surgery. She started PT and then reported she wanted further work-up from a second provider opinion. PT was then stopped. She gained a little weight and she has changed her diet and got a total gym. She went back to work part-time at [employer] January 2020. February 05 was her last day of work because her right knee swelled up again. She filed a claim with a intellectual property lawyer for L&I. She states that Dr. Rollins wants her to do a month of PT as well as get acupuncture. She is looking for a place to get acupuncture . Pt has to walk with cane in her left hand. She is doing a detox bath. She is frustrated with the pain and inability to work. Her mom has to have back surgery. She has been living with pt and family. Pt feels like she might need a TKR. She is tired of situation . Pt reports 6/10 constant right knee pain localized to anterior and posterior knee. Flexoril is helping her sleep. Icing helps her knee. She is using TENS on her right knee. Her machine is 15 years old and she asks about getting another one through this clinic. PMH: powdered latex, degenerative arthritis in her back, bruises easily, fall in [facility] last year when she injured her leg--she slipped on water, gastric bypass surgery, pt is taking Tylenol everyday Prior Treatments and Tests MRI 03/08/2020: small joint effusion, sprain of the medial patellofemoral ligament without definite complete rupture, large Burkett's cyst, mild patellar tendinopathy with adjacent fluid and edema, mild joint degeneration, most pronounced in the patellofemoral compartment. PT-OP-C Subjective Start: 02/27/20 07:21 Freq: Status: Active Protocol: Document 08/22/20 09:00 MB (Rec: 08/22/20 09:23 MB [id number]) OP-PT Subjective Patient Comments Patient Comments [place] She has a referral to a DO in [place] for her back. She is having a good back day . She states that physical therapy is helping her knee. She is trying to wear tennis shoes at home. She will bring therapy exercises in next treatment date. She describes using a small bike under her table and doing leg extension in standing with band. She is walking some without the cane. Patient Questionnaires Lower Extremity Functional Scale LEFS Impairment 40 to 59% Impaired (Score 32- 47) PT-OP-D Balance Start: 02/27/20 07:21 Freq: Status: Active Protocol: Document 03/21/20 13:30 MB (Rec: 03/21/20 16:15 MB [id number]) OP-PT Balance Assessment Sitting Balance Static Sitting Balance Ability Good Dynamic Sitting Balance Ability Fair Sitting Balance Comments UE support for scooting EOB Standing Balance Static Standing Balance Ability Fair Dynamic Standing Balance Ability Fair Device Used SPC left hand Standing Balance Comments Pt decreases WB through RLE Dillon Fall Scale Copyright Permission PT-OP-G Mobility & Gait Start: 02/27/20 07:21 Freq: Status: Active Protocol: Document 03/21/20 13:30 MB (Rec: 03/21/20 16:15 MB [id number]) OP Mobility Evaluation Bed Mobility Rolling I Supine to and from Sit I Transfers Sit to Stand UE support OP Gait Assessment Gait Gait Assistance Required: Independent Distance (Feet) 70 Assistive Devices Assistive Device Straight Cane Gait Deviations General Gait Pattern Antalgic,Decreased Stride Length,Decreased Feet Clearance,Flexed Trunk Factors Limiting Gait Function Factors Limiting Gait Function Decreased Activity Tolerance, Decreased Strength,Limited Range of Motion,Pain,Poor Balance Comments Gait Comments Pt's SPC is tall and PT lowers it to the correct height PT-OP-J Posture/Palpation/Skin Start: 02/27/20 07:21 Freq: Status: Active Protocol: Document 03/21/20 13:30 MB (Rec: 03/21/20 16:15 MB [id number]) Posture Evaluation Comments Posture Comments Forward head, rounded shoulders and pt limits standing time and WB on right LE, flexed posture at hips and right knee, increased globalized soft tissue PT-OP-K Range of Motion Start: 02/27/20 07:21 Freq: Status: Active Protocol: Document 03/21/20 13:30 MB (Rec: 03/21/20 16:15 MB [id number]) Knee Goniometric Range of Motion Knee Left knee Knee ROM WFL No Patient Position Supine Flexion Active (degrees) 0 Extension Active (degrees) 100 R knee Knee ROM WFL No Patient Position Supine Flexion Active (degrees) 36 Extension Active (degrees) 11 PT-OP-M Strength Start: 02/27/20 07:21 Freq: Status: Active Protocol: Document 03/21/20 13:30 MB (Rec: 03/21/20 16:15 MB [id number]) Hip Strength Hip Manual Muscle Testing Right Comments Deferred d/t pt states she is worried about PT testing her right leg Left Flexion (L2) 4 Good Abduction 4 Good Knee Strength Knee Manual Muscle Testing Right Comments Deferred d/t pt states she is worried about PT testing her right leg Left Flexion (S2) 4 Good Extension (L3) 4 Good Ankle/Foot Strength Ankle and Foot Manual Muscle Testing Right Dorsiflexion (L4) 4 Good Left Dorsiflexion (L4) 5 Normal Toe Strength Toe Manual Muscle Testing Left Great Toe Extension 4 Good Right Great Toe Extension 4 Good PT-OP-Q Treatments Start: 02/27/20 07:21 Freq: Status: Active Protocol: Document 08/22/20 09:00 MB (Rec: 08/22/20 09:24 MB [id number]) Cardio Equipment Recumbent Elliptical (Biodex) Duration (Minutes) 13 Resistance 1-2 Seat Position 10 Therapeutic Exercises Supine Exercises B lumbar rotation Comments Performs I today heel slides Comments Performs well, with limited flexion in hook lying today before range measur Sitting Exercises Sit to stand without UE support Comments 9 reps in 30 sec, which is an improvement since eval Other Exercises Verbally reviewed exercises today Comments Verbally reviewed some exercises today, need her handouts for full review Gait Training Gait Activity 6MWT Comments See goals for distance and comments today. Pt con't to use SPC in left hand and presents with slower, mildly antalgic gait with weight shifting off the right leg and decreased step-length and foot clearance Self-Care/Home Management Treatment Education Other Education Ongoing education to pt that she can start weaning herself from the cane and in fact, she will really have to do this for herself Ed in need to con't to progress towards goals before increasing PT frequency from 1x/wk. Ed to tell DO that she needs gentle treatment of SI area. Ed to bring in HEP handouts for clear review of what she is doing at home given multiple interruptions of PT care. PT-OP-R Modalities Start: 02/27/20 07:21 Freq: Status: Active Protocol: Document 04/02/20 13:51 SP (Rec: 04/02/20 14:33 SP [id number]) Ultrasound Therapy Treatment R knee Treatment Duration (minutes) 8 Patient Position Supine Frequency Setting (mHz) 1 Mode Setting Pulsed Duty Cycle 50% Intensity Setting (w/cm2) 1.0 Comments inferior/lateral patella of R knee PT-OP-T Assessment and Plan Start: 02/27/20 07:21 Freq: Status: Active Protocol: Document 08/22/20 09:00 MB (Rec: 08/22/20 09:23 MB [id number]) Physical Therapy Assessment Rehab Potential Rehabilitation Potential Fair Evaluation Complexity Number of Personal Factors/Comorbidities 1-2 Number of Body Systems Impaired 3 Clinical Presentation at Evaluation Evolving Impairments Impairments Activity Tolerance,Balance, Coordination,Functional Activities,Functional Mobility ,Gait,Pain,Posture,ROM, Sensation,Soft Tissue Mobility ,Strength Goals 9 Tie Hacker Goal (LTG) Pt will present with B hip flexion and abduction strength to 5/5 and B knee flexion and extension strength to at least 4/5 to improve function and gait by 10/22/20. 08/22/20: Pt does not tolerate MMT today LTG Duration 8 weeks 8 Tie Hacker Goal (LTG) Pt will perform 15 reps sit to stands without UE assist in 30 sec to improve functional strength by 10/22/20. 08/22/20: Pt performs 9 reps sit to stand today, which is an improvement since last reassessment 05/28/2020: Pt performs 7 reps sit to stand without UE assist in 30 sec LTG Duration 8 weeks 4 Chcf Goal (LTG) Pt will present with improved active right knee ROM to 0-117 deg to improve functional transfers and gait by 10/22/20. 08/22/20: AROM right knee 0-103 deg, which is better extension 05/28/2020: Pt presents with AROM right knee 4-107 deg which is an improvement since last progress note LTG Duration 8 weeks 3 Tie Hacker Goal (LTG) Pt will perform progressive HEP with I to improve ROM, strength, gait and balance by 10/22/20. 08/12/20: Will review exercise handouts next treatment date LTG Duration 8 weeks 2 Impairment Decreased gait Chcf Goal (LTG) Pt will gait train at least 1200 feet without AD in 6 minutes to improve community ambulation by 10/22/20. 08/22/20: Pt gait trains 861 feet in 6 minutes with cane in left hand and she reports 4/ 10 right knee pain LTG Duration 8 weeks 1 Impairment LEF score reflects 45% impairment Tie Hacker Goal (LTG) Pt will present with an improved LEF score to reflect no more than 35% impairment to allow improved ability to perform work tasks and to reflect decreased pain by 10/22. 08/22/20: LEF score reflects 52 .5% impairment, which is not an improvement since last progress note LTG Duration 8 weeks Assessment Summary Assessment Pt has not yet seen DO but she has a referral in. [place] . She reports a good back day and so progress note today and will con't PT 1/xwk. She has progressed towards sit to stand and right knee extension goals since starting PT. She has not progressed torwards LEF and gait distance goals. Will review exercise handouts in future treatments. Pt states she would like to get off the cane. PT does feel that she has been self- limiting this currently. Will con't PT efforts to improve strength, gait and balance. Physical Therapy Plan Frequency and Duration Frequency of Treatment 1x/Week Duration of Treatment 8 weeks Plan of Care Start Date 08/22/20 Plan of Care End Date 10/22/20 Therapeutic Interventions Therapeutic Interventions Balance Training,Coordination Training,Gait Training,Home Exercise Program,Joint Mobilizations,Manual Therapy, Neuromuscular Re-education, Patient/Caregiver Education, Self-Care/Home Management, Sensory Integration,Soft Tissue Mobilization,Taping, Therapeutic Activities, Therapeutic Exercises Modalities Electric Stimulation,Hot Packs ,Infrared Therapy,Ultrasound Next Visit Focus/Plan Next Note Type Treatment Note Next Visit Plan Review her exercise handouts. Gait training. Review HEP, consider ankle weights (1#) vs band, likely weights for standing exercises
--- NOTE | 2020-08-22 11:14 | PT.OPPOC ---
Physical, Occupational & Speech Therapy At [facility] Current Diagnoses Pain in right knee (08/22/20) Visit Care Team Role Provider Type Kerri De Los Santos MD Attending Provider Non-Staff Primary Care Provider Referring Provider Specialty: Family Practice Address: [address] [place] [address], [id number] Email: Plan Of Care PT-OP-T Assessment and Plan Start: 02/27/20 07:21 Freq: Status: Active Protocol: Document 08/22/20 09:00 MB (Rec: 08/22/20 09:23 MB [id number]) Physical Therapy Assessment Rehab Potential Rehabilitation Potential Fair Evaluation Complexity Number of Personal Factors/Comorbidities 1-2 Number of Body Systems Impaired 3 Clinical Presentation at Evaluation Evolving Impairments Impairments Activity Tolerance,Balance, Coordination,Functional Activities,Functional Mobility ,Gait,Pain,Posture,ROM, Sensation,Soft Tissue Mobility ,Strength Goals 9 [facility] Goal (LTG) Pt will present with B hip flexion and abduction strength to 5/5 and B knee flexion and extension strength to at least 4/5 to improve function and gait by 10/22/20. 08/22/20: Pt does not tolerate MMT today LTG Duration 8 weeks 8 Nail Feeder Goal (LTG) Pt will perform 15 reps sit to stands without UE assist in 30 sec to improve functional strength by 10/22/20. 08/22/20: Pt performs 9 reps sit to stand today, which is an improvement since last reassessment 05/28/2020: Pt performs 7 reps sit to stand without UE assist in 30 sec LTG Duration 8 weeks 4 [facility]cf Goal (LTG) Pt will present with improved active right knee ROM to 0-117 deg to improve functional transfers and gait by 10/22/20. 08/22/20: AROM right knee 0-103 deg, which is better extension 05/28/2020: Pt presents with AROM right knee 4-107 deg which is an improvement since last progress note LTG Duration 8 weeks 3 Nail Feeder Goal (LTG) Pt will perform progressive HEP with I to improve ROM, strength, gait and balance by 10/22/20. 08/12/20: Will review exercise handouts next treatment date LTG Duration 8 weeks 2 Impairment Decreased gait Nail Feeder Goal (LTG) Pt will gait train at least 1200 feet without AD in 6 minutes to improve community ambulation by 10/22/20. 08/22/20: Pt gait trains 861 feet in 6 minutes with cane in left hand and she reports 4/ 10 right knee pain LTG Duration 8 weeks 1 Impairment LEF score reflects 45% impairment [facility] Goal (LTG) Pt will present with an improved LEF score to reflect no more than 35% impairment to allow improved ability to perform work tasks and to reflect decreased pain by 10/22. 08/22/20: LEF score reflects 52 .5% impairment, which is not an improvement since last progress note LTG Duration 8 weeks Assessment Summary Assessment Pt has not yet seen DO but she has a referral in. [place] She reports a good back day and so progress note today and will con't PT /xwk. She has progressed towards sit to stand and right knee extension goals since starting PT. She has not progressed torwards LEF and gait distance goals. Will review exercise handouts in future treatments. Pt states she would like to get off the cane. PT does feel that she has been self- limiting this currently. Will con't PT efforts to improve strength, gait and balance. Physical Therapy Plan Frequency and Duration Frequency of Treatment 1x/Week Duration of Treatment 8 weeks Plan of Care Start Date 08/22/20 Plan of Care End Date 10/22/20 Therapeutic Interventions Therapeutic Interventions Balance Training,Coordination Training,Gait Training,Home Exercise Program,Joint Mobilizations,Manual Therapy, Neuromuscular Re-education, Patient/Caregiver Education, Self-Care/Home Management, Sensory Integration,Soft Tissue Mobilization,Taping, Therapeutic Activities, Therapeutic Exercises Modalities Electric Stimulation,Hot Packs ,Infrared Therapy,Ultrasound Next Visit Focus/Plan Next Note Type Treatment Note Next Visit Plan Review her exercise handouts. Gait training. Review HEP, consider ankle weights (1#) vs band, likely weights for standing exercises Plan of Care Dates Plan of Care Start Date 08/22/20 Plan of Care End Date 10/22/20 Electronically Signed by: Dixie Fam, PT 08/22/20 0535 Please Sign and Return: I have reviewed this Plan of Care and certify that the skilled therapy services above are required to meet the patient?s needs. Physician Signature Date Printed Name and Credentials Clinical Instructor Signature Printed Name and Credentials
--- NOTE | 2020-09-04 10:44 | PT.OTN ---
Current Diagnoses Pain in right knee (09/04/20) Physical Therapy Treatment Note PT-OP-A Visit Information Start: 02/27/20 07:21 Freq: Status: Active Protocol: Document 09/04/20 09:49 MB (Rec: 09/04/20 10:43 MB [id number]) Out-Patient Physical Therapy Visit Information Visit Information Visit Type Treatment Note Visit Note Hanna Haines, 09/16 visits on current auth Visit Start Time 09:49 Visit Stop Time 10:42 Total Visit Minutes 53 Visit Number 29th treatment PT-OP-B Current Condition Start: 02/27/20 07:21 Freq: Status: Active Protocol: Document 03/21/20 13:30 MB (Rec: 03/21/20 14:01 MB [id number]) Current Condition History of Current Condition Onset Date 09/25/2018 Current Complaints Constant pain and swelling and pain right knee History of Current Condition Pt underwent right knee arthroscopic surgery 2019. Dr. Rollins did the surgery. She started PT and then reported she wanted further work-up from a second provider opinion. PT was then stopped. She gained a little weight and she has changed her diet and got a total gym. She went back to work part-time at [employer] January 2020. February 05 was her last day of work because her right knee swelled up again. She filed a claim with a [employer] business for [employer]. She states that Dr. Rollins wants her to do a month of PT as well as get acupuncture. She is looking for a place to get acupuncture . Pt has to walk with cane in her left hand. She is doing a detox bath. She is frustrated with the pain and inability to work. Her mom has to have back surgery. She has been living with pt and family. Pt feels like she might need a TKR. She is tired of situation . Pt reports 6/10 constant right knee pain localized to anterior and posterior knee. Flexoril is helping her sleep. Icing helps her knee. She is using TENS on her right knee. Her machine is 15 years old and she asks about getting another one through this clinic. PMH: powdered latex, degenerative arthritis in her back, bruises easily, fall in [employer] last year when she injured her leg--she slipped on water, gastric bypass surgery, pt is taking Tylenol everyday Prior Treatments and Tests MRI 03/08/2020: small joint effusion, sprain of the medial patellofemoral ligament without definite complete rupture, large Burkett's cyst, mild patellar tendinopathy with adjacent fluid and edema, mild joint degeneration, most pronounced in the patellofemoral compartment. PT-OP-C Subjective Start: 02/27/20 07:21 Freq: Status: Active Protocol: Document 09/04/20 09:49 MB (Rec: 09/04/20 10:43 MB [id number]) OP-PT Subjective Patient Comments Patient Comments Pt saw Dr. Mueller in [place]. He told her that her back problem is her sciatic. He performed a manipulation at her right SI area and also pulled through her right leg. He told her to use her inversion table each night. Pt states that the doctor was condescending and that she did have pain with the manipulation but that she will go back for a second chance next month because her right SI area does feel a little better. PT-OP-D Balance Start: 02/27/20 07:21 Freq: Status: Active Protocol: Document 03/21/20 13:30 MB (Rec: 03/21/20 16:15 MB [id number]) OP-PT Balance Assessment Sitting Balance Static Sitting Balance Ability Good Dynamic Sitting Balance Ability Fair Sitting Balance Comments UE support for scooting EOB Standing Balance Static Standing Balance Ability Fair Dynamic Standing Balance Ability Fair Device Used SPC left hand Standing Balance Comments Pt decreases WB through RLE Dillon Fall Scale Copyright Permission PT-OP-G Mobility & Gait Start: 02/27/20 07:21 Freq: Status: Active Protocol: Document 03/21/20 13:30 MB (Rec: 03/21/20 16:15 MB [id number]) OP Mobility Evaluation Bed Mobility Rolling I Supine to and from Sit I Transfers Sit to Stand UE support OP Gait Assessment Gait Gait Assistance Required: Independent Distance (Feet) 70 Assistive Devices Assistive Device Straight Cane Gait Deviations General Gait Pattern Antalgic,Decreased Stride Length,Decreased Feet Clearance,Flexed Trunk Factors Limiting Gait Function Factors Limiting Gait Function Decreased Activity Tolerance, Decreased Strength,Limited Range of Motion,Pain,Poor Balance Comments Gait Comments Pt's SPC is tall and PT lowers it to the correct height PT-OP-J Posture/Palpation/Skin Start: 02/27/20 07:21 Freq: Status: Active Protocol: Document 03/21/20 13:30 MB (Rec: 03/21/20 16:15 MB [id number]) Posture Evaluation Comments Posture Comments Forward head, rounded shoulders and pt limits standing time and WB on right LE, flexed posture at hips and right knee, increased globalized soft tissue PT-OP-K Range of Motion Start: 02/27/20 07:21 Freq: Status: Active Protocol: Document 03/21/20 13:30 MB (Rec: 03/21/20 16:15 MB [id number]) Knee Goniometric Range of Motion Knee Left knee Knee ROM WFL No Patient Position Supine Flexion Active (degrees) 0 Extension Active (degrees) 100 R knee Knee ROM WFL No Patient Position Supine Flexion Active (degrees) 36 Extension Active (degrees) 11 PT-OP-M Strength Start: 02/27/20 07:21 Freq: Status: Active Protocol: Document 03/21/20 13:30 MB (Rec: 03/21/20 16:15 MB [id number]) Hip Strength Hip Manual Muscle Testing Right Comments Deferred d/t pt states she is worried about PT testing her right leg Left Flexion (L2) 4 Good Abduction 4 Good Knee Strength Knee Manual Muscle Testing Right Comments Deferred d/t pt states she is worried about PT testing her right leg Left Flexion (S2) 4 Good Extension (L3) 4 Good Ankle/Foot Strength Ankle and Foot Manual Muscle Testing Right Dorsiflexion (L4) 4 Good Left Dorsiflexion (L4) 5 Normal Toe Strength Toe Manual Muscle Testing Left Great Toe Extension 4 Good Right Great Toe Extension 4 Good PT-OP-Q Treatments Start: 02/27/20 07:21 Freq: Status: Active Protocol: Document 09/04/20 09:49 MB (Rec: 09/04/20 10:43 MB [id number]) Cardio Equipment Recumbent Elliptical (Biodex) Duration (Minutes) 13 Resistance 1 Seat Position 10 Therapeutic Exercises Supine Exercises Hip rotator stretch Side bilateral Comments 30 sec each leg B lumbar rotation Comments 10 reps x2 for relaxation B glute stretch Side bilateral Comments 2 reps, legs together, 30 sec hold Pelvic realignment exercises Side bilateral Comments 5 reps, 3 sec hold all exercises today, in order as handout has laid out Sidelying Exercises Hip abduction Side bilateral Comments Reviewed today and pt to con't at home on both sides Sitting Exercises Quad rolling Side bilateral Comments Verbally reviewed, pt understands and will con't at home Hip abduction with band Side bilateral Equipment Used Hopkins latex-free band Comments 10 reps Other Exercises Verbally reviewed exercises today Comments Revised exercises and provided handouts for two new stretches PT-OP-R Modalities Start: 02/27/20 07:21 Freq: Status: Active Protocol: Document 04/02/20 13:51 SP (Rec: 04/02/20 14:33 SP [id number]) Ultrasound Therapy Treatment R knee Treatment Duration (minutes) 8 Patient Position Supine Frequency Setting (mHz) 1 Mode Setting Pulsed Duty Cycle 50% Intensity Setting (w/cm2) 1.0 Comments inferior/lateral patella of R knee PT-OP-T Assessment and Plan Start: 02/27/20 07:21 Freq: Status: Active Protocol: Document 09/04/20 09:49 MB (Rec: 09/04/20 10:43 MB [id number]) Physical Therapy Assessment Rehab Potential Rehabilitation Potential Fair Evaluation Complexity Number of Personal Factors/Comorbidities 1-2 Number of Body Systems Impaired 3 Clinical Presentation at Evaluation Evolving Impairments Impairments Activity Tolerance,Balance, Coordination,Functional Activities,Functional Mobility ,Gait,Pain,Posture,ROM, Sensation,Soft Tissue Mobility ,Strength Goals 9 Aquatic Centre Manager Goal (LTG) Pt will present with B hip flexion and abduction strength to 5/5 and B knee flexion and extension strength to at least 4/5 to improve function and gait by 10/22/20. 08/22/20: Pt does not tolerate MMT today LTG Duration 8 weeks 8 Aquatic Centre Manager Goal (LTG) Pt will perform 15 reps sit to stands without UE assist in 30 sec to improve functional strength by 10/22/20. 08/22/20: Pt performs 9 reps sit to stand today, which is an improvement since last reassessment 05/28/2020: Pt performs 7 reps sit to stand without UE assist in 30 sec LTG Duration 8 weeks 4 Aquatic Centre Manager Goal (LTG) Pt will present with improved active right knee ROM to 0-117 deg to improve functional transfers and gait by 10/22/20. 08/22/20: AROM right knee 0-103 deg, which is better extension 05/28/2020: Pt presents with AROM right knee 4-107 deg which is an improvement since last progress note LTG Duration 8 weeks 3 Aquatic Centre Manager Goal (LTG) Pt will perform progressive HEP with I to improve ROM, strength, gait and balance by 10/22/20. 08/12/20: Will review exercise handouts next treatment date LTG Duration 8 weeks 2 Impairment Decreased gait Halfway Goal (LTG) Pt will gait train at least 1200 feet without AD in 6 minutes to improve community ambulation by 10/22/20. 08/22/20: Pt gait trains 861 feet in 6 minutes with cane in left hand and she reports 4/ 10 right knee pain LTG Duration 8 weeks 1 Impairment LEF score reflects 45% impairment Aquatic Centre Manager Goal (LTG) Pt will present with an improved LEF score to reflect no more than 35% impairment to allow improved ability to perform work tasks and to reflect decreased pain by 10/22. 08/22/20: LEF score reflects 52 .5% impairment, which is not an improvement since last progress note LTG Duration 8 weeks Assessment Summary Assessment Pt communicates concerns about [place]. She does state that her right SI area is a little better after DO treatment and that she is standing a little straighter. Reviewed and revised HEP today and will con't to progress strengthening and gait in future treatment dates. Pt is apprehensive about trying gait without cane in her left hand today and gait trains with antalgic step-to pattern. Encouraged pt to consider getting walking sticks. Also asked pt to bring in her exercise handouts so that PT can throw out exercises that we deleted today that are too easy in order to prepare for more strengthening. Physical Therapy Plan Frequency and Duration Frequency of Treatment 1x/Week Duration of Treatment 8 weeks Plan of Care Start Date 08/22/20 Plan of Care End Date 10/22/20 Therapeutic Interventions Therapeutic Interventions Balance Training,Coordination Training,Gait Training,Home Exercise Program,Joint Mobilizations,Manual Therapy, Neuromuscular Re-education, Patient/Caregiver Education, Self-Care/Home Management, Sensory Integration,Soft Tissue Mobilization,Taping, Therapeutic Activities, Therapeutic Exercises Modalities Electric Stimulation,Hot Packs ,Infrared Therapy,Ultrasound Next Visit Focus/Plan Next Note Type Treatment Note Next Visit Plan Gait training, consider ankle weights (1#) vs band, likely weights for standing exercises
--- NOTE | 2020-09-20 15:27 | PT-OP ANOTE ---
PT gets an alert about pt's auth getting ready to . PT reviews chart and schedule and notes again pt's last two appointments were cancelled d/t family illness and sickness after second COVID shot. Pt has not been seen by PT for 16 days. This gap in treatment sessions has happened many times during pt's two PT courses and it has disrupted progression towards PT goals. Each new visit is as a progress note/reassessment. PT calls pt to let her know about this and decreased ability to progress with PT and PT reminds pt of next treatment date and time. Pt states that she will attend. At this point, will not schedule any further visits for patient and will consider d/c if she misses another appointment. PT has educated pt several times that she can wean herself off the cane without this PT' assistance. Pt's SI pain has been another factor limiting PT and she is getting this addressed by another provider.
--- NOTE | 2020-09-26 10:21 | PT.OTN ---
Current Diagnoses Pain in right knee (09/26/20) Physical Therapy Treatment Note PT-OP-A Visit Information Start: 02/27/20 07:21 Freq: Status: Active Protocol: Document 09/26/20 09:50 MB (Rec: 09/26/20 10:10 MB [id number]) Out-Patient Physical Therapy Visit Information Visit Information Visit Type Treatment Note Visit Note Hanna Haines, / visits on current auth Visit Start Time 09:50 Visit Stop Time 10:00 Total Visit Minutes 5 Visit Number 30th treatment PT-OP-B Current Condition Start: 02/27/20 07:21 Freq: Status: Active Protocol: Document 03/21/20 13:30 MB (Rec: 03/21/20 14:01 MB [id number]) Current Condition History of Current Condition Onset Date 09/25/2018 Current Complaints Constant pain and swelling and pain right knee History of Current Condition Pt underwent right knee arthroscopic surgery 2019. Dr. Rollins did the surgery. She started PT and then reported she wanted further work-up from a second provider opinion. PT was then stopped. She gained a little weight and she has changed her diet and got a total gym. She went back to work part-time at [employer] January 2020. February 05 was her last day of work because her right knee swelled up again. 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 She states that Dr. Rollins wants her to do a month of PT as well as get acupuncture. She is looking for a place to get acupuncture . Pt has to walk with cane in her left hand. She is doing a detox bath. She is frustrated with the pain and inability to work. Her mom has to have back surgery. She has been living with pt and family. Pt feels like she might need a TKR. She is tired of situation . Pt reports 6/10 constant right knee pain localized to anterior and posterior knee. Flexoril is helping her sleep. Icing helps her knee. She is using TENS on her right knee. Her machine is 15 years old and she asks about getting another one through this clinic. PMH: powdered latex, degenerative arthritis in her back, bruises easily, fall in [employer] [facility] last year when she injured her leg--she slipped on water, gastric bypass surgery, pt is taking Tylenol everyday Prior Treatments and Tests MRI 03/08/2020: small joint effusion, sprain of the medial patellofemoral ligament without definite complete rupture, large Burkett's cyst, mild patellar tendinopathy with adjacent fluid and edema, mild joint degeneration, most pronounced in the patellofemoral compartment. PT-OP-C Subjective Start: 02/27/20 07:21 Freq: Status: Active Protocol: Document 09/26/20 09:50 MB (Rec: 09/26/20 10:10 MB [id number]) OP-PT Subjective Patient Comments Patient Comments Pt states that she is returning to the doctor to get a MRI of her back because her back is not getting better. She did get another adjustment for her SI joint. She raised her cane and that is helpful. PT-OP-D Balance Start: 02/27/20 07:21 Freq: Status: Active Protocol: Document 03/21/20 13:30 MB (Rec: 03/21/20 16:15 MB [id number]) OP-PT Balance Assessment Sitting Balance Static Sitting Balance Ability Good Dynamic Sitting Balance Ability Fair Sitting Balance Comments UE support for scooting EOB Standing Balance Static Standing Balance Ability Fair Dynamic Standing Balance Ability Fair Device Used SPC left hand Standing Balance Comments Pt decreases WB through RLE Dillon Fall Scale Copyright Permission PT-OP-G Mobility & Gait Start: 02/27/20 07:21 Freq: Status: Active Protocol: Document 03/21/20 13:30 MB (Rec: 03/21/20 16:15 MB [id number]) OP Mobility Evaluation Bed Mobility Rolling I Supine to and from Sit I Transfers Sit to Stand UE support OP Gait Assessment Gait Gait Assistance Required: Independent Distance (Feet) 70 Assistive Devices Assistive Device Straight Cane Gait Deviations General Gait Pattern Antalgic,Decreased Stride Length,Decreased Feet Clearance,Flexed Trunk Factors Limiting Gait Function Factors Limiting Gait Function Decreased Activity Tolerance, Decreased Strength,Limited Range of Motion,Pain,Poor Balance Comments Gait Comments Pt's SPC is tall and PT lowers it to the correct height PT-OP-J Posture/Palpation/Skin Start: 02/27/20 07:21 Freq: Status: Active Protocol: Document 03/21/20 13:30 MB (Rec: 03/21/20 16:15 MB [id number]) Posture Evaluation Comments Posture Comments Forward head, rounded shoulders and pt limits standing time and WB on right LE, flexed posture at hips and right knee, increased globalized soft tissue PT-OP-K Range of Motion Start: 02/27/20 07:21 Freq: Status: Active Protocol: Document 03/21/20 13:30 MB (Rec: 03/21/20 16:15 MB [id number]) Knee Goniometric Range of Motion Knee Left knee Knee ROM WFL No Patient Position Supine Flexion Active (degrees) 0 Extension Active (degrees) 100 R knee Knee ROM WFL No Patient Position Supine Flexion Active (degrees) 36 Extension Active (degrees) 11 PT-OP-M Strength Start: 02/27/20 07:21 Freq: Status: Active Protocol: Document 03/21/20 13:30 MB (Rec: 03/21/20 16:15 MB [id number]) Hip Strength Hip Manual Muscle Testing Right Comments Deferred d/t pt states she is worried about PT testing her right leg Left Flexion (L2) 4 Good Abduction 4 Good Knee Strength Knee Manual Muscle Testing Right Comments Deferred d/t pt states she is worried about PT testing her right leg Left Flexion (S2) 4 Good Extension (L3) 4 Good Ankle/Foot Strength Ankle and Foot Manual Muscle Testing Right Dorsiflexion (L4) 4 Good Left Dorsiflexion (L4) 5 Normal Toe Strength Toe Manual Muscle Testing Left Great Toe Extension 4 Good Right Great Toe Extension 4 Good PT-OP-Q Treatments Start: 02/27/20 07:21 Freq: Status: Active Protocol: Document 09/26/20 09:50 MB (Rec: 09/26/20 10:10 MB [id number]) Cardio Equipment Recumbent Elliptical (Biodex) Duration (Minutes) 3 Resistance 1 Seat Position 10 PT-OP-R Modalities Start: 02/27/20 07:21 Freq: Status: Active Protocol: Document 04/02/20 13:51 SP (Rec: 04/02/20 14:33 SP [id number]) Ultrasound Therapy Treatment R knee Treatment Duration (minutes) 8 Patient Position Supine Frequency Setting (mHz) 1 Mode Setting Pulsed Duty Cycle 50% Intensity Setting (w/cm2) 1.0 Comments inferior/lateral patella of R knee PT-OP-T Assessment and Plan Start: 02/27/20 07:21 Freq: Status: Active Protocol: Document 09/26/20 09:50 MB (Rec: 09/26/20 10:10 MB [id number]) Physical Therapy Assessment Rehab Potential Rehabilitation Potential Fair Evaluation Complexity Number of Personal Factors/Comorbidities 1-2 Number of Body Systems Impaired 3 Clinical Presentation at Evaluation Evolving Impairments Impairments Activity Tolerance,Balance, Coordination,Functional Activities,Functional Mobility ,Gait,Pain,Posture,ROM, Sensation,Soft Tissue Mobility ,Strength Goals 9 Cost Coordinator Goal (LTG) Pt will present with B hip flexion and abduction strength to 5/5 and B knee flexion and extension strength to at least 4/5 to improve function and gait by 10/22/20. 08/22/20: Pt does not tolerate MMT today LTG Duration 8 weeks 8 Cost Coordinator Goal (LTG) Pt will perform 15 reps sit to stands without UE assist in 30 sec to improve functional strength by 10/22/20. 08/22/20: Pt performs 9 reps sit to stand today, which is an improvement since last reassessment 05/28/2020: Pt performs 7 reps sit to stand without UE assist in 30 sec LTG Duration 8 weeks 4 Cost Coordinator Goal (LTG) Pt will present with improved active right knee ROM to 0-117 deg to improve functional transfers and gait by 10/22/20. 08/22/20: AROM right knee 0-103 deg, which is better extension 05/28/2020: Pt presents with AROM right knee 4-107 deg which is an improvement since last progress note LTG Duration 8 weeks 3 Cost Coordinator Goal (LTG) Pt will perform progressive HEP with I to improve ROM, strength, gait and balance by 10/22/20. 08/12/20: Will review exercise handouts next treatment date LTG Duration 8 weeks 2 Impairment Decreased gait Fpc Goal (LTG) Pt will gait train at least 1200 feet without AD in 6 minutes to improve community ambulation by 10/22/20. 08/22/20: Pt gait trains 861 feet in 6 minutes with cane in left hand and she reports 4/ 10 right knee pain LTG Duration 8 weeks 1 Impairment LEF score reflects 45% impairment Cost Coordinator Goal (LTG) Pt will present with an improved LEF score to reflect no more than 35% impairment to allow improved ability to perform work tasks and to reflect decreased pain by 10/22. 08/22/20: LEF score reflects 52 .5% impairment, which is not an improvement since last progress note LTG Duration 8 weeks Assessment Summary Assessment Pt arrives 5' late to appointment. She reports her back is not better and she is going to ask for a MRI for her back. Upon starting on recumbent stepper, PT communicates that pt and PT have been unable to make consistent progressive gains towards PT d/t inconsistent PT course with last treatment 22 days ago. PT acknowledges pt' s personal situations for some cancellations: reaction to COVID vaccine, taking care of her mother and the largest barrier, her back/SI pain. PT communicates that given many cancelled PT visits over two PT courses, that PT feels that asking for more visits from the doctor is not the right thing to do at this time given interruptions in care and decreased progress towards goals. Pt becomes very angry, stating that then she needs to find another PT in [place] and that this PT could have communicated this over the phone. Pt gets up and quickly leaves the gym. Will d/c PT. Overall, pt's clinical presentation is multi- factorial including musculoskeletal and psychosocial contributions.
== END 2020-09-26 13:18 | disposition home or self-care (01) ==
LOC: PHYS 09:45
PROVIDERS: PCP Family Medicine; Referring Provider Family Medicine; Visit Provider Family Medicine
DX: M25.561 Pain in right knee (principal)
CPT/HCPCS: 97035; 97110; 97116; 97140; 97162; 97535

== ENCOUNTER 2024-06-28 19:02 | Emergency (ER) | payer OTHER, SELFPAY ==
[2024-06-28 19:09] VITALS: BP 143/73; PULSE 95; RESP 18; TEMP 36.6; O2SAT 98; BMI 41.5
--- NOTE | 2024-06-28 21:07 | ED.WOUNDLAC ---
HPI - Wound/Laceration General Chief Complaint: Wound/Laceration Stated Complaint: Cat Scratched R Eye Time Seen by Provider: 06/28/24 20:30 Source: patient Mode of arrival: Ambulatory History of Present Illness HPI narrative: 49-year-old female presents for evaluation of right eye injury. She was helping to continuous pickling line pickler a kitten in her house when it jumped out of her arms and accidentally scratched underneath her right eye. The kitten is indoors only, up-to-date on vaccinations. Uncertain when her last tetanus shot was administered. Related Data Home Medications Medication Instructions Recorded Confirmed calcium 315 mg (as 1 tab PO QDAY ##0 12/23/16 citrate)-vitamin D3 6.25 mcg (250 unit) tablet (Citracal + Vitamin D Maximum) cholecalciferol (vitamin D3) 250 10,000 unit PO QDAY ##0 12/23/16 mcg (10,000 unit) tablet cyanocobalamin (vitamin B-12) 5,000 mcg PO QDAY ##0 12/23/16 5,000 mcg disintegrating tablet Previous Rx's Medication Instructions Recorded amoxicillin 875 mg-potassium 1 tab PO Q12H #20 tabs 06/28/24 clavulanate 125 mg tablet Allergies Allergy/AdvReac Type Severity Reaction Status Date / Time No Known Drug Allergies Allergy Verified 06/28/24 19:09 Patient History Social History Smoking Status: Never smoker Smoking Status: Never smoker Exam Initial Vital Signs Initial Vital Signs: Vital Signs Temperature 97.8 F 06/28/24 19:09 Pulse Rate 95 H 06/28/24 19:09 Respiratory Rate 18 06/28/24 19:09 Blood Pressure 143/73 H 06/28/24 19:09 Pulse Oximetry 98 06/28/24 19:09 Oxygen Delivery Method Room Air 06/28/24 19:09 Const: Awake, alert, no acute distress, nontoxic appearing Eye: PERRL, EOMI, no fluoresceine uptake Skin: superficial laceration under R eyelid Neuro: AO x3, CN II-XII grossly intact, moves all extremities Course Orders Ordered: Discontinued Medications Amoxicillin/Clavulanate Potassium (Amoxicillin/Clav 875/125 Mg) 1 tab PO NOW ONE Stop: 06/28/24 21:35 Last Admin: 06/28/24 21:39 Dose: 1 tab Documented By: MARE Diphtheria/Tetanus/Acell Pertussis (Tet,Diph,Pertuss(Acell),Vac/Pf 0.5 Ml Syringe) 0.5 ml IM .ONCE ONE Stop: 06/28/24 21:35 Last Admin: 06/28/24 21:39 Dose: 0.5 ml Documented By: MARE Fluorescein Sodium (Fluorescein 1 Mg Strip) 1 mg EYE-RIGHT NOW ONE Stop: 06/28/24 21:08 Last Admin: 06/28/24 21:27 Dose: 1 mg Documented By: GRIFFIN Proparacaine HCl (Proparacaine 0.5% Ophth Abigail) 1 drops EYE-RIGHT NOW ONE Stop: 06/28/24 21:08 Last Admin: 06/28/24 21:27 Dose: 1 drop Documented By: GRIFFIN Vital Signs Vital signs: Vital Signs - 8 hr 06/28/24 19:09 06/28/24 21:51 Temperature 97.8 F Pulse Rate 95 H 90 Respiratory Rate 18 16 Blood Pressure 143/73 H 138/70 Pulse Oximetry 98 99 Oxygen Delivery Method Room Air Room Air MDM - Wound/Laceration MDM Narrative Medical decision making narrative: Superficial laceration underneath right eye from house cat. Not amenable to sutures. No foreign body in eye, no lacerations or abrasions of eye. Antibiotics sent to pharmacy of choice. Tetanus updated. Discharge Plan Departure Patient Disposition: Home Clinical Impression: Cat scratch Instructions: DI for Cat Bite Activity Restrictions/Additional Instructions: Your eye did not have any scratches on the cornea itself. Finish all antibiotics as prescribed. If you notice worsening ice swelling or pain despite treatment please come back for repeat evaluation. Prescriptions: New amoxicillin-pot clavulanate 875-125 mg tablet 1 tab PO Q12H Qty: 20 0RF No Action calcium citrate-vitamin D3 [Citracal + D Maximum] 1,500 MG/250 IU tablet 1 tab PO QDAY Qty: 0 cholecalciferol (vitamin D3) 10,000 UNIT tablet 10,000 unit PO QDAY Qty: 0 cyanocobalamin (vitamin B-12) 5,000 MCG tablet,disintegrating 5,000 mcg PO QDAY Qty: 0 Referrals: Kerri De Los Santos MD [Primary Care Provider] - Stand Alone Forms: Patient Portal/API/Survey
[2024-06-28] MEDS: FLUORESCEIN 1 MG STRIP EYE-RIGHT (21:27)
[2024-06-28] MEDS: PROPARACAINE 0.5% OPHTH SOL 1 DROPS EYE-RIGHT (21:27)
[2024-06-28] MEDS: AMOXICILLIN/CLAV 875/125 MG 1 TAB PO (21:39)
[2024-06-28] MEDS: TET,DIPH,PERTUSS(ACELL),VAC/PF 0.5 ML SYRINGE IM (21:39)
[2024-06-28 21:51] VITALS: BP 138/70; PULSE 90; RESP 16; O2SAT 99
== END 2024-06-28 21:53 | disposition home or self-care (01) ==
PROVIDERS: Emergency Provider Emergency Medicine; PCP Family Medicine
DX: S00.211A Abrasion of right eyelid and periocular area, initial encounter (principal); W55.03XA Scratched by cat, initial encounter; Z23 Encounter for immunization
CPT/HCPCS: 90471; 99283; 90715

== ENCOUNTER 2024-11-23 13:10 | Emergency (ER) | payer OTHER, SELFPAY ==
[2024-11-23 13:15] VITALS: BP 120/87; PULSE 83; RESP 17; TEMP 37.1; O2SAT 99; BMI 39.1
--- NOTE | 2024-11-23 14:34 | ED_ITS ---
<Statement entered by Guillermo Bradford, DO - 11/23/24 18:18> Co-sign statement: I was available for consultation during this patient's emergency department visit. This chart is beside by myself for administrative purposes only. I do not have direct contact with this patient during this visit. They were seen independently by the APC. HPI - Extremity Problem General Chief complaint: Extremity Problem,Nontraumatic Stated complaint: Left Knee Pain/Injury, in pain Time Seen by Provider: 11/23/24 13:55 Source: patient Mode of arrival: Family Vehicle History of Present Illness HPI Narrative: Ms. Leal is a 49-year-old female with a past medical history of gastric bypass surgery, joint pain, arthritis, prior right knee surgery who presents to the emergency department for left knee pain x3 months. Pain began in July when patient was moving items from a truck to her storage unit at which point she ?tweaked? her left knee. Shortly after she also had a fall onto the right knee which resulted in worsening left knee pain and popping. Her [facility] doctor performed an x-ray and she went to a [facility] ED on 11/16/[address] of the left knee performed and she has an MRI scheduled for Wednesday. However she comes to the ED today for persistent left knee pain, and the prior ER doctor had given her a work excuse until 11/20/2024 and said of the pain persisted she should be re-evaluated which is what prompted her visit today. She was previously prescribed hydrocodone however she prefers to take Tylenol for the pain. She has also been applying lidocaine patches directly to the knee and using a knee brace with minimal relief. She did start physical therapy and had slight improvement with physical therapy however overall she is still having a really hard time getting around. Patient was concerned that she could possibly have a blood clot or something else in her leg and should be evaluated with ultrasound. She denies a history of VTE. She has however been spending most of her time on the couch because of the left knee pain. She denies any numbness, tingling, weakness and the pain is primarily on the front aspect of the knee. Related Data Home Medications ?Medication ?Instructions ?Recorded ?Confirmed calcium 315 mg (as 1 tab PO QDAY ##0 12/23/16 citrate)-vitamin D3 6.25 mcg (250 unit) tablet (Citracal + Vitamin D Maximum) cholecalciferol (vitamin D3) 250 10,000 unit PO QDAY # #0 12/23/16 mcg (10,000 unit) tablet cyanocobalamin (vitamin B-12) 5,000 mcg PO QDAY ##0 5,000 mcg disintegrating tablet Previous Rx's ?Medication ?Instructions ?Recorded amoxicillin 875 mg-potassium 1 tab PO Q12H #20 tabs clavulanate 125 mg tablet Allergies Allergy/AdvReac Type Severity Reaction Status Date / Time No Known Drug Allergies Allergy Verified 11/23/24 13:17 Review of Systems Review of Systems ROS Unobtainable: All systems reviewed & are unremarkable except as noted in HPI and below Patient History Social History Smoking Status: Former smoker Smoking Status: Former smoker tobacco type: cigarettes Exam Narrative Exam Narrative: GENERAL: 49 year old patient appears stated age. Well-developed patient, in no acute distress, she is tearful. HEAD: Atraumatic. Normocephalic. NECK: Trachea midline. Cervical ROM intact. CARDIOVASCULAR: Regular rate RESPIRATORY: ?Nonlabored respirations. ?Speaking in clear, full sentences. EXTREMITIES: Tenderness to palpation of anterior left knee/tibial plateau. Pain with flexion of the knee. No obvious edema. No erythema, rashes or increased warmth. Strong DP and PT pulses bilaterally and sensation intact to light touch in the bilateral lower extremities. No calf tenderness or swelling. NEURO: AOx3. ?Clear speech. ? SKIN: No rash or erythema of visible areas Initial Vital Signs Initial Vital Signs: Vital Signs Temperature 98.7 F 11/23/24 13:15 Pulse Rate 83 11/23/24 13:15 Respiratory Rate 17 11/23/24 13:15 Blood Pressure 120/87 11/23/24 13:15 Pulse Oximetry 99 11/23/24 13:15 Oxygen Delivery Method Room Air 11/23/24 13:15 Course Orders Ordered: ED Orders 11/23/24 14:33 US periph venous low extrem lt Stat Discontinued Medications Hydrocodone Bitart/Acetaminophen (Hydrocodone/Acet 5/325 Tablet) 1 tab PO NOW ONE Stop: 11/23/24 14:34 Last Admin: 11/23/24 15:10 Dose: 1 tab Documented By: GRIFFIN Lidocaine (Lidocaine 5% Patch) 1 each TOP NOW ONE Stop: 11/23/24 14:34 Last Admin: 11/23/24 15:10 Dose: 1 each Documented By: GRIFFIN Vital Signs Vital signs: Vital Signs - 8 hr 11/23/24 13:15 Temperature 98.7 F Pulse Rate 83 Respiratory Rate 17 Blood Pressure 120/87 Pulse Oximetry 99 Oxygen Delivery Method Room Air MDM - Extremity (Nontraumatic) Medical Records Attestation: I reviewed the patient's medical records. Medical records narrative: Reviewed records including [facility] ED visit on 11/16/[address] left knee revealing mild medial compartment joint space narrowing, mild tricompartmental osteophytosis, minimal joint fluid. Imaging Data LLE Venous US: Radiologist's Impression: PROCEDURE: US PERIPH VENOUS LOW EXTREM LT INDICATIONS: leg immobilization w/ worsening pain swelling knee TECHNIQUE: Real-time imaging, as well as color and pulse Doppler interrogation, were performed of the lower extremity deep veins from the inguinal ligament to the popliteal fossa, with documentation of the visualized calf veins. COMPARISON: None. FINDINGS: The common femoral, femoral, popliteal, and the visualized calf veins are normally compressible, and free of intraluminal thrombus. Color and pulse Doppler demonstrate normal phasic intraluminal flow. There is normal augmentation response to distal compression maneuver. IMPRESSION: No findings of lower extremity deep venous thrombosis. Dictated by: Velma Chew M.D. on 11/23/2024 at 15:13 Approved by: Velma Chew M.D. on 11/23/2024 at 15:13 [facility] Narrative Medical decision making narrative: 49-year-old female with a past medical history of gastric bypass surgery, joint pain, arthritis, prior right knee surgery who presents to the emergency department for left knee pain x3 months. Differential diagnosis includes but is not limited to left knee sprain, strain, osteoarthritis, DVT, soft tissue injury, ligament tear, etc. On exam patient is in no acute distress, nontoxic-appearing, all vital signs within normal limits, she is tearful. Left knee exam reveals no obvious edema, no erythema or increased warmth. No rashes. She does have tenderness to palpation of the anterior knee/tibial plateau. Legs are neurovascularly intact. Reviewed prior CT left knee reveals tricompartmental osteoarthritis. We will obtain ultrasound left lower extremity given recent immobilization and worsening pain. We will treat patient with home hydrocodone-acetaminophen dose in addition to lidocaine patch. She understands the importance of following up with MRI as scheduled on Wednesday. Vascular ultrasound reveals no left lower extremity DVT. Patient's pain improved in the ED with Tan wrap, lidocaine, hydrocodone. Recommended continuing rice therapy, Tylenol/hydrocodone, MRI Wednesday, PCP follow up tomorrow. Patient is concerned about returning to work, I did provide her with a work note for the next week but informed her that she will need to talk with the primary care doctor tomorrow about specifics for returning to work. Dis cussed ED return precautions. Patient verbalized understanding of all information is agreeable with the plan. She was provided with printed copies of her imaging results. 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 Discharge Plan Departure Patient Disposition: Home Clinical Impression: Tricompartment osteoarthritis of left knee Instructions: DI for Osteoarthritis Activity Restrictions/Additional Instructions: Dear Ms. Leal, Thank you for coming to the emergency department. Today you were evaluated for left knee pain. We reviewed your CT scan from [facility] which revealed tricompartmental osteoarthritis of the left knee. We obtained an ultrasound of the left lower leg today which revealed no blood clot. The MRI on Wednesday can tell you more details about any potential meniscus/ligament injuries. Please continue using Tylenol and your prescribed hydrocodone-acetaminophen for pain. Please talk with your primary care doctor tomorrow about specifications for returning to work. Please use RICE therapy for your pain in addition to pain medications. Rest the painful area. Ice the area of pain/swelling for at least 15 minutes, 4x a day. Compress the area of swelling using a brace, wrap, or splint if applied. Elevate the painful or swollen extremity by supporting it above the level of the heart with pillows when sitting or laying. Please follow up with your primary care doctor within the next 2-3 days for ER follow-up. (If you do not have a PCP you can call [phone]. ?to schedule an appointment with an [facility] Primary Care Provider) IF YOU DEVELOP ANY NEW OR WORSENING SYMPTOMS, RETURN TO THE ER! Please read the attached instructions, they highlight more specific treatments and interventions for you at home. Thank you for letting me participate in your care, MINDY ThomasC Prescriptions: No Action calcium citrate-vitamin D3 [Citracal + D Maximum] 1,500 MG/250 IU tablet 1 tab PO QDAY Qty: 0 cholecalciferol (vitamin D3) 10,000 UNIT tablet 10,000 unit PO QDAY Qty: 0 cyanocobalamin (vitamin B-12) 5,000 MCG tablet,disintegrating 5,000 mcg PO QDAY Qty: 0 amoxicillin-pot clavulanate 875-125 mg tablet 1 tab PO Q12H Qty: 20 0RF Referrals: Kerri De Los Santos MD [Primary Care Provider, Family Practice] Stand Alone Forms: Patient Portal/API, Work Release Note
[2024-11-23] MEDS: HYDROCODONE/ACET 5/325 TABLET 1 TAB PO (15:10)
[2024-11-23] MEDS: LIDOCAINE 5% PATCH 1 EACH TOP (15:10)
[2024-11-23 16:15] VITALS: BP 111/65; PULSE 66; RESP 18; O2SAT 97
== END 2024-11-23 16:16 | disposition home or self-care (01) ==
PROVIDERS: Emergency Provider Physician Assistant; PCP Family Medicine
DX: M17.12 Unilateral primary osteoarthritis, left knee (principal)
CPT/HCPCS: 93971; 99283

== ENCOUNTER → 2025-04-25 11:27 | Outpatient (CLI) | payer OTHER, SELFPAY | PROVIDERS: PCP Family Medicine; Visit Provider Obstetrics & Gynecology | DX: R30.0 Dysuria (principal) | CPT/HCPCS: 87077; 87086 ==